=== PATIENT | female | born 1940 | race African-American/Black ===

== ENCOUNTER 2016-06-06 20:26 | Inpatient (IN) | payer OTHER ==
[2016-06-06] MEDS ORDERED: SODIUM CHLORIDE 1,000 ML IV STA (21:36)
[2016-06-06] MEDS ORDERED: PANTOPRAZOLE SODIUM 40 MG in SODIUM CHLORIDE 100 ML IVPB ONE (21:36)
--- NOTE | 2016-06-06 21:36 | PDOC ---
History of Present Illness <Angelica Scott Ginette - Last Filed: 06/07/16 00:34> - History of Present Illness Initial Comments: 06/06/16 23:20 The patient is a 75 year old female, with a significant past medical history of hypertension, who presents to the emergency department with bright red blood per rectum and dark stools 3x since 5PM this evening. The patient denies any associated abdominal pain. The patient reports 3 episodes of dark stools this evening with bright red blood found in the toilet. She denies chest pain, shortness of breath, headache and dizziness. She denies fever, chills, nausea, vomit, diarrhea and constipation. She denies dysuria, frequency, urgency and hematuria. Allergies: Penicillins PCP - Dr. Dom Rodriguez <Roslyn Maher - Last Filed: 06/07/16 00:52> - General Chief Complaint: Rectal Bleed Stated Complaint: RECTAL BLEEDING Time Seen by Provider: 06/06/16 21:30 Past History - Past Medical History Anemia: No Asthma: No Cancer: No HTN: Yes - Surgical History Abdominal Surgery: No Appendectomy: No - Psycho/Social/Smoking Cessation Hx Anxiety: No Suicidal Ideation: No Smoking Status: No Smoking History: Never smoked Number of Cigarettes Smoked Daily: 0 Hx Alcohol Use: No Drug/Substance Use Hx: No Substance Use Type: None <Constantino Scottarturo Peng - Last Filed: 06/07/16 00:34> <Roslyn Maher - Last Filed: 06/07/16 00:52> - Past Medical History Allergies/Adverse Reactions: Allergies Allergy/AdvReac Type Severity Reaction Status Date / Time Penicillins Allergy Verified 06/06/16 20:33 Home Medications: Ambulatory Orders Amlodipine Besylate [Norvasc -] 10 mg PO DAILY 03/22/16 Aspirin [ASA -] 81 mg PO DAILY 03/22/16 Atenolol [Tenormin -] 50 mg PO BID 03/22/16 Donepezil HCl [Aricept -] 10 mg PO DAILY 03/22/16 Escitalopram Oxalate [Lexapro -] 5 mg PO DAILY 03/22/16 Vitamin E 400 unit PO DAILY 03/22/16 Review of Systems - Review of Systems Able to Perform ROS?: Yes Comments:: 06/06/16 23:19 CONSTITUTIONAL: Absent: fever, chills, diaphoresis, generalized weakness, malaise, loss of appetite HEENT: Absent: rhinorrhea, nasal congestion, throat pain, throat swelling, difficulty swallowing, mouth swelling, ear pain, eye pain, visual Changes CARDIOVASCULAR: Absent: chest pain, syncope, palpitations, irregular heart rate, lightheadedness , peripheral edema RESPIRATORY: Absent: cough, shortness of breath, dyspnea with exertion, orthopnea, wheezing, stridor, hemoptysis GASTROINTESTINAL: (+) hematochezia. Absent: abdominal pain, abdominal distension, nausea, vomiting , diarrhea, constipation, melena, GENITOURINARY: Absent: dysuria, frequency, urgency, hesitancy, hematuria, flank pain, genital pain MUSCULOSKELETAL: Absent: myalgia, arthralgia, joint swelling SKIN: Absent: rash, itching, pallor HEMATOLOGIC/IMMUNOLOGIC: Absent: easy bleeding, easy bruising, lymphadenopathy, frequent infections ENDOCRINE: Absent: unexplained weight gain, unexplained weight loss, heat intolerance, cold intolerance NEUROLOGIC: Absent: headache, focal weakness or paresthesias, dizziness, unsteady gait, seizure, mental status changes, bladder or bowel incontinence PSYCHIATRIC: Absent: anxiety, depression, suicidal or homicidal ideation, hallucinations. <Roslyn Maher - Last Filed: 06/07/16 00:52> *Physical Exam - Vital Signs Last Vital Signs Temp Pulse Resp BP Pulse Ox 98.3 F 76 18 158/92 98 06/06/16 20:33 06/06/16 20:33 06/06/16 20:33 06/06/16 20:33 06/06/16 20:33 <Angelica Scott - Last Filed: 06/07/16 00:34> - Vital Signs Last Vital Signs Temp Pulse Resp BP Pulse Ox 98.3 F 76 18 158/92 98 06/06/16 20:33 06/06/16 20:33 06/06/16 20:33 06/06/16 20:33 06/06/16 20:33 - Physical Exam Comments: 06/06/16 23:20 GENERAL: Well developed, well nourished. Awake and alert. No acute distress. HEENT: Normocephalic, atraumatic. PERRLA, EOMI. No conjunctival pallor. Sclera are non- icteric. Moist mucous membranes. Oropharynx is clear. NECK: Supple. Full ROM. No JVD. Carotid pulses 2+ and symmetric, without bruits. No thyromegaly. No lymphadenopathy. CARDIOVASCULAR: Regular rate and rhythm. No murmurs, rubs, or gallops. Distal pulses are 2+ and symmetric. PULMONARY: No evidence of respiratory distress. Lungs clear to auscultation bilaterally. No wheezing, rales or rhonchi. ABDOMINAL: Soft. Non-tender. Non-distended. No rebound or guarding. No organomegaly. Normoactive bowel sounds. MUSCULOSKELETAL Normal range of motion at all joints. No bony deformities or tenderness. No CVA tenderness. EXTREMITIES: No cyanosis. No clubbing. No edema. No calf tenderness. SKIN: Warm and dry. Normal capillary refill. No rashes. No jaundice. NEUROLOGICAL: Alert, awake, appropriate. Cranial nerves 2-12 intact. Normoreflexic in the upper and lower extremities. Normal speech. Toes are down-going bilaterally. Gait is normal without ataxia. PSYCHIATRIC: Cooperative. Good eye contact. Appropriate mood and affect. RECTAL: (+) Dark, clot-like blood in rectal vault. <Roslyn Maher - Last Filed: 06/07/16 00:52> Heart Score/ECG Review - ECG Intrepretation Comment:: 06/07/16 00:52 ECG was read by Dr. Scott at 00:48 Impression: Sinus rhythm is 63, PAC, T-wave abnormality <Roslyn Maher - Last Filed: 06/07/16 00:52> ED Treatment Course - LABORATORY CBC & Chemistry Diagram: 06/06/16 22:10 06/06/16 22:10 <Angelica Scott - Last Filed: 06/07/16 00:34> - LABORATORY CBC & Chemistry Diagram: 06/06/16 22:10 06/06/16 22:10 - ADDITIONAL ORDERS Additional order review: Laboratory Results 06/06/16 06/06/16 06/06/16 22:10 22:10 22:10 Sodium 144 Potassium 3.9 Chloride 107 Carbon Dioxide 26 Anion Gap 11 BUN 16 D Creatinine 0.8 Creat Clearance w eGFR > 60 Random Glucose 100 D Calcium 8.6 Total Bilirubin 0.3 D AST 15 ALT 18 Alkaline Phosphatase 98 Creatine Kinase 64 Troponin I 0.02 Total Protein 6.6 Albumin 3.3 L Stool Occult Blood Positive 06/06/16 22:10 RBC 4.53 MCV 89.2 MCHC 32.9 RDW 15.6 MPV 8.8 Neutrophils % 59.1 Lymphocytes % 30.0 Monocytes % 8.2 Eosinophils % 1.6 Basophils % 1.1 D - RADIOLOGY Radiograph Interpretation: 06/06/16 23:17 CXR was read by Dr. Deal at 22:42 Impression: No acute pulmonary or cardiac pathology - Medications Given in the ED: ED Medications Discontinued Medications Generic Name Dose Route Start Last Admin Trade Name Freq PRN Reason Stop Dose Admin Pantoprazole Sodium 40 mg/ 100 mls @ 200 mls/hr 06/06/16 21:36 06/06/16 22:48 Sodium Chloride IVPB 06/06/16 22:05 200 mls/hr ONCE ONE Administration Sodium Chloride 1,000 mls @ 1,000 mls/hr 06/06/16 21:36 06/06/16 22:48 Normal Saline - IV 06/06/16 22:35 1,000 mls/hr ASDIR STA Administration <Roslyn Maher - Last Filed: 06/07/16 00:52> Medical Decision Making - Medical Decision Making 06/07/16 00:34 75 yo female brought in by her for rectal bleeding that started today, -benign abd exam,no guarding and no rebound -lungs cta b/l cvs [id number] rectal exam-dark red blood/melena, no hemorrhoids neuro -pt ambulatory and alert but very poor historian -reviewed labs -she is not anemic and no transfusion required -cardiac enzyme is negative cxr no infiltrates -case discussed w Dr Lopez, admit to noncardiac telemetry <Angelica Scott - Last Filed: 06/07/16 00:34> - Medical Decision Making 06/07/16 00:35 Dr. Lopez, [facility] Hospitalist, accepts admission of this patient at this time. <Roslyn Maher - Last Filed: 06/07/16 00:52> *DC/Admit/Observation/Transfer - Discharge Dispostion Admit: Yes <Angelica Scott - Last Filed: 06/07/16 00:34> - Attestations Scribe Attestion: 06/06/16 23:23 Documentation prepared by Roslyn Maher, acting as medical lab assistant for Angelica Scott MD <Roslyn Maher - Last Filed: 06/07/16 00:52> Diagnosis at time of Disposition: Rectal bleeding - Referrals Referrals: Dom Rodriguez MD [Primary Care Provider] -
[2016-06-06] MEDS ORDERED: PANTOPRAZOLE SODIUM 40 MG VIAL ONE (22:37)
[2016-06-06 22:51] LABS: BASOPHIL 1.1 % (0-2.0); EOSINOPHIL 1.6 % (0-4.5); MCH 29.4 pg (25.7-33.7); MCHC 32.9 g/dl (32.0-36.0); MEAN CELL VOLUME 89.2 fl (80-96); MEAN PLT VOLUME 8.8 fl (7.5-11.1); NEUTROPHILS 59.1 % (42.8-82.8); PLATELET COUNT 203 K/MM3 (134-434); RDW 15.6 % (11.6-15.6); WHITE BLOOD COUNT 7.5 K/mm3 (4.0-10.0)
[2016-06-06 23:13] LABS: ALBUMIN 3.3 g/dl (3.4-5.0); ALK PHOS 98 U/L (45-117); ANION GAP 11 (8-16); BILIRUBIN,TOTAL 0.3 mg/dL (0.2-1.0); CALCIUM 8.6 mg/dL (8.5-10.1); CO2 26 mmol/L (21-32); CREATININE 0.8 mg/dL (0.55-1.02); GLUCOSE,RANDOM 100 mg/dL (74-106); SGOT/AST 15 U/L (15-37); SGPT/ALT 18 U/L (12-78); TOT PROT 6.6 g/dl (6.4-8.2)
[2016-06-06 23:15] LABS: TROPONIN I 0.02 ng/ml (0.00-0.05)
[2016-06-06 23:32] LABS: INR 1.04 (0.82-1.09); PROTHROMBIN TIME (PATIENT) 11.4 SEC (9.98-11.88)
--- NOTE | 2016-06-07 00:21 | PN ---
<MikoGonzalo - Last Filed: 06/07/16 04:08> Teaching Attending Note ATTENDING PHYSICIAN STATEMENT I saw and evaluated the patient. I reviewed the resident's note and discussed the case with the resident. I agree with the resident's findings and plan as documented. SUBJECTIVE: The patient is a 75 year old female, with a past medical history of hypertension , dementia, and chronic back pain who presented to the emergency department with bright red blood and dark stools per rectum. Patient stated she had 4 episodes since yesterday evening. The patient denies any associated abdominal pain. Patient stated she has been using Naproxen 3x per day for lower back pain. Questionable dark stools as per ED provider but patient did not endorse. She denies chest pain, shortness of breath, headache and dizziness. She denies fever, chills, nausea, vomit, diarrhea and constipation. She denies dysuria, frequency, urgency and hematuria. OBJECTIVE: Vital Signs: Last Vital Signs Temp Pulse Resp BP Pulse Ox 98.0 F 60 20 144/80 99 06/06/16 23:22 06/06/16 23:22 06/06/16 23:22 06/06/16 23:22 06/06/16 23:22 Physical Exam: GEN: NAD HEENT: NCAT, PERRL CARD: RRR, S1 S2 RESP: CTAB RECTAL: Deferred ABD: NT, BWS x4 Labs: CBCD WBC 7.5 K/mm3 (4.0-10.0) 06/06/16 22:10 RBC 4.53 M/mm3 (3.60-5.2) 06/06/16 22:10 Hgb 13.3 GM/dL (10.7-15.3) 06/06/16 22:10 Hct 40.4 % (32.4-45.2) 06/06/16 22:10 MCV 89.2 fl (80-96) 06/06/16 22:10 MCHC 32.9 g/dl (32.0-36.0) 06/06/16 22:10 RDW 15.6 % (11.6-15.6) 06/06/16 22:10 Plt Count 203 K/MM3 (134-434) D 06/06/16 22:10 MPV 8.8 fl (7.5-11.1) 06/06/16 22:10 CMP Sodium 144 mmol/L (136-145) 06/06/16 22:10 Potassium 3.9 mmol/L (3.5-5.1) 06/06/16 22:10 Chloride 107 mmol/L (98-107) 06/06/16 22:10 Carbon Dioxide 26 mmol/L (21-32) 06/06/16 22:10 Anion Gap 11 (8-16) 06/06/16 22:10 BUN 16 mg/dL (7-18) D 06/06/16 22:10 Creatinine 0.8 mg/dL (0.55-1.02) 06/06/16 22:10 Creat Clearance w eGFR > 60 (>60) 06/06/16 22:10 Calcium 8.6 mg/dL (8.5-10.1) 06/06/16 22:10 Total Bilirubin 0.3 mg/dL (0.2-1.0) D 06/06/16 22:10 AST 15 U/L (15-37) 06/06/16 22:10 ALT 18 U/L (12-78) 06/06/16 22:10 Alkaline Phosphatase 98 U/L (45-117) 06/06/16 22:10 Total Protein 6.6 g/dl (6.4-8.2) 06/06/16 22:10 Albumin 3.3 g/dl (3.4-5.0) L 06/06/16 22:10 Imagin. CXR Impression: No acute cardiopulmonary disease is present Reviewed and interpreted by radiologist Dr. Pierce Deal ASSESSMENT AND PLAN: The patient is a 75 year old female, with a significant past medical history of hypertension who presented with GI bleed. 1. GI Bleed- most likely lower. -NPO -2 large bore IV -Protonix GTT -Coagulates -GI consult -Type and screen -Repeat CBC Q12H -Hold Aspirin 2. HTN -Hold PO medications for now 3. Dementia -Hold PO medications for now 4. Chronic back pain -Hold PO medications for now 5. DVT PPX -SCDs Admit to non-cardiac med tele Documentation prepared by Gonzalo Crouch, acting as medical record librarian for Dr. Ricky Lopez MD. ADDENDUM: Patient became hypotensive in ED will transfer to ICU and order PRBC standing and repeat CBC stat. <Ricky Lopez - Last Filed: 06/07/16 05:26> Teaching Attending Note Name of Resident: Pavan Velez Addendum- pt. stated to Ed provider she was having dark blood per rectum. Also noted taking Naproxyn - C/W protonix gtt. PT. transferred from Tele to ICU Critical Care Total Critical Care Time (in minutes): 35 Critical Care Statement: The care of this patient involved high complexity decision making to prevent further life threatening deterioration of the patient 's condition and/or to evalute & treat vital organ system(s) failure or risk of failure.
[2016-06-07] MEDS ORDERED: DEXTROSE 5%-0.45% SALINE 1,000 ML IV SCH (01:30)
[2016-06-07] MEDS ORDERED: PANTOPRAZOLE SODIUM 80 MG in SODIUM CHLORIDE 100 ML IVPB SCH (01:30)
--- NOTE | 2016-06-07 01:35 | HP ---
Addendum entered and electronically signed by Pavan Velez RES 06/07/16 06: 34: Patient continued to have bloody BM in ED. BP dropped. Vital Signs - 8 hr 06/06/16 06/07/16 06/07/16 23:22 03:47 03:50 Temperature 98.0 F 98.1 F Pulse Rate [ 60 60 60 Left Radial] Respiratory 20 20 Rate Blood Pressure 144/80 93/57 67/47 [Right Arm] O2 Sat by Pulse 99 99 Oximetry (%) 06/07/16 06/07/16 06/07/16 04:00 04:11 05:41 Temperature 97.5 F L Pulse Rate [ 60 60 60 Left Radial] Respiratory 20 Rate Blood Pressure 81/53 100/57 138/78 [Right Arm] O2 Sat by Pulse 97 Oximetry (%) 06/07/16 06:13 Temperature 98.5 F Pulse Rate [ 58 L Left Radial] Respiratory 20 Rate Blood Pressure 111/63 [Right Arm] O2 Sat by Pulse Oximetry (%) CBC WBC 7.0 K/mm3 (4.0-10.0) 06/07/16 04:29 RBC 3.28 M/mm3 (3.60-5.2) L D 06/07/16 04:29 Hgb 9.8 GM/dL (10.7-15.3) L D 06/07/16 04:29 Hct 29.3 % (32.4-45.2) L D 06/07/16 04:29 MCV 89.4 fl (80-96) 06/07/16 04:29 MCHC 33.5 g/dl (32.0-36.0) 06/07/16 04:29 RDW 15.8 % (11.6-15.6) H 06/07/16 04:29 Plt Count 177 K/MM3 (134-434) 06/07/16 04:29 MPV 8.2 fl (7.5-11.1) 06/07/16 04:29 Neutrophils % 59.1 % (42.8-82.8) 06/06/16 22:10 Lymphocytes % 30.0 % (8-40) 06/06/16 22:10 Monocytes % 8.2 % (3.8-10.2) 06/06/16 22:10 Eosinophils % 1.6 % (0-4.5) 06/06/16 22:10 Basophils % 1.1 % (0-2.0) D 06/06/16 22:10 Retic Count 1.28 % (0.5-1.5) 06/06/16 22:10 A/P * STAT CBC showed drop in Hgb 13-->9 * Bolus 1 L NS ; PRBC ordered * Initiated transfusion PRBC * transferred to ICU CC time:35 min Original Note: CHIEF COMPLAINT: Bright Red blood per Rectum PCP:Dr. Dom Rodriguez HISTORY OF PRESENT ILLNESS: 75 yo F with sign PMHX of dementia, HTN and chronic back pain, who presents to the ED with BRBPR and dark stools 6x since 5PM 06/05/16. The patient denies any associated abdominal pain. The patient reports 3 episodes of dark stools this evening with bright red blood found in the toilet. Also complaining of diarrhea. NO recent abx use. She takes daily baby aspirin and naproxen TID for back pain. Last colonoscopy > 10 yrs ago. She denies chest pain, shortness of breath, headache and dizziness. She denies fever, chills, nausea, vomit, and constipation. She denies dysuria, frequency, urgency and hematuria. ER course was notable for: (1)Stool occult blood (+) (2)CBC shows H/H WNL (3)EKG- NSR no st or t wave abnormalities. Recent Travel:Denies PAST MEDICAL HISTORY: HTN, Dementia, and chronic lower back pain. PAST SURGICAL HISTORY: Social History: Smoking: Denies- never smoked Alcohol:rare Drugs: no Family History: she states both parents of old age. NO history of Colon ca. Allergies Penicillins Allergy (Verified 06/06/16 20:33) WEAKNESS HOME MEDICATIONS: Home Medications Medication Instructions Recorded Amlodipine Besylate [Norvasc -] 10 mg PO DAILY 03/22/16 Aspirin [ASA -] 81 mg PO DAILY 03/22/16 Atenolol [Tenormin -] 50 mg PO BID 03/22/16 Donepezil HCl [Aricept -] 10 mg PO DAILY 03/22/16 Escitalopram Oxalate [Lexapro -] 5 mg PO DAILY 03/22/16 Vitamin E 400 unit PO DAILY 03/22/16 REVIEW OF SYSTEMS CONSTITUTIONAL: Absent: fever, chills, diaphoresis, generalized weakness, malaise, loss of appetite, weight change HEENT: Absent: rhinorrhea, nasal congestion, throat pain, throat swelling, difficulty swallowing, mouth swelling, ear pain, eye pain, visual changes CARDIOVASCULAR: Absent: chest pain, syncope, palpitations, irregular heart rate, lightheadedness , peripheral edema RESPIRATORY: Absent: cough, shortness of breath, dyspnea with exertion, orthopnea, wheezing, stridor, hemoptysis GASTROINTESTINAL:(+)diarrhea,melena Absent: abdominal pain, abdominal distension, nausea, vomiting, constipation, , hematochezia GENITOURINARY: Absent: dysuria, frequency, urgency, hesitancy, hematuria, flank pain, genital pain MUSCULOSKELETAL: Absent: myalgia, arthralgia, joint swelling, back pain, neck pain SKIN: Absent: rash, itching, pallor HEMATOLOGIC/IMMUNOLOGIC: Absent: easy bleeding, easy bruising, lymphadenopathy, frequent infections ENDOCRINE: Absent: unexplained weight gain, unexplained weight loss, heat intolerance, cold intolerance NEUROLOGIC: Absent: headache, focal weakness or paresthesias, dizziness, unsteady gait, seizure, mental status changes, bladder or bowel incontinence PSYCHIATRIC: Absent: anxiety, depression, suicidal or homicidal ideation, hallucinations. PHYSICAL EXAMINATION Vital Signs - 24 hr 06/06/16 06/06/16 20:33 23:22 Temperature 98.3 F 98.0 F Pulse Rate 76 Pulse Rate [ 60 Left Radial] Respiratory 18 20 Rate Blood Pressure 158/92 Blood Pressure 144/80 [Right Arm] O2 Sat by Pulse 98 99 Oximetry (%) GENERAL: Awake, alert, and fully oriented, in no acute distress. HEAD: Normal with no signs of trauma. EYES: Pupils equal, round and reactive to light, extraocular movements intact, sclera anicteric, conjunctiva clear. EARS, NOSE, THROAT: Ears normal, nares patent, oropharynx clear without exudates. Moist mucous membranes. NECK: Normal range of motion, supple without lymphadenopathy, JVD, or masses. LUNGS: Breath sounds equal, clear to auscultation bilaterally. No wheezes, and no crackles. No accessory muscle use. HEART: Regular rate and rhythm, normal S1 and S2 without murmur, rub or gallop. ABDOMEN: Soft, LLQ tenderness, not distended, normoactive bowel sounds, no guarding, no rebound, no masses. No hepatomegaly or splenomegaly. MUSCULOSKELETAL: Normal range of motion at all joints. No bony deformities or tenderness. No CVA tenderness. UPPER EXTREMITIES: 2+ pulses, warm, well-perfused. No cyanosis. No clubbing. No peripheral edema. LOWER EXTREMITIES: 2+ pulses, warm, well-perfused. No calf tenderness. No peripheral edema. NEUROLOGICAL: Cranial nerves II-XII intact. Normal speech. gait not observed PSYCHIATRIC: Cooperative. Good eye contact. Anxious SKIN: Warm, dry, normal turgor, no rashes or lesions noted. Laboratory Results - last 24 hr 06/06/16 06/06/16 06/06/16 22:10 22:10 22:10 WBC 7.5 RBC 4.53 Hgb 13.3 Hct 40.4 MCV 89.2 MCHC 32.9 RDW 15.6 Plt Count 203 D MPV 8.8 Neutrophils % 59.1 Lymphocytes % 30.0 Monocytes % 8.2 Eosinophils % 1.6 Basophils % 1.1 D Retic Count 1.28 INR Sodium Potassium Chloride Carbon Dioxide Anion Gap BUN Creatinine Creat Clearance w eGFR Random Glucose Calcium Total Bilirubin AST ALT Alkaline Phosphatase Creatine Kinase 64 Troponin I 0.02 Total Protein Albumin Stool Occult Blood Positive Blood Type Antibody Screen 06/06/16 06/06/16 06/06/16 22:10 22:10 22:10 WBC RBC Hgb Hct MCV MCHC RDW Plt Count MPV Neutrophils % Lymphocytes % Monocytes % Eosinophils % Basophils % Retic Count INR 1.04 Sodium 144 Potassium 3.9 Chloride 107 Carbon Dioxide 26 Anion Gap 11 BUN 16 D Creatinine 0.8 Creat Clearance w eGFR > 60 Random Glucose 100 D Calcium 8.6 Total Bilirubin 0.3 D AST 15 ALT 18 Alkaline Phosphatase 98 Creatine Kinase Troponin I Total Protein 6.6 Albumin 3.3 L Stool Occult Blood Blood Type O POSITIVE Antibody Screen Negative ASSESSMENT/PLAN: 75 yo F with sign PMHX of dementia, HTN and chronic back pain admitted to med/ tele for GI bleed. Problem List - Problem (1) Rectal bleeding Assessment/Plan: * GI consult- Dr. Ann * NPO * Protonix drip * repeat H/H Q8 hrs. * type and screen * coags ordered. (2) HTN (hypertension) Assessment/Plan: * Continue: * Amlodipine Besylate (Norvasc -) 10 mg PO DAILY * Atenolol (Tenormin -) 50 mg PO BID (3) Dementia Assessment/Plan: * Donepezil HCl (Aricept -) 10 mg PO DAILY (4) Spinal stenosis Assessment/Plan: * ALL NSAIDs held for possible GI bleed. (5) DVT prophylaxis Assessment/Plan: * SCD's bilat. Visit type - Emergency Visit Emergency Visit: Yes ED Registration Date: 06/07/16 Care time: The patient presented to the Emergency Department on the above date and was hospitalized for further evaluation of their emergent condition. - New Patient This patient is new to me today: Yes Date on this admission: 06/07/16 - Critical Care Critical Care patient: No
[2016-06-07] MEDS ORDERED: PANTOPRAZOLE SODIUM 40 MG VIAL ONE (01:56)
[2016-06-07] MEDS ORDERED: SODIUM CHLORIDE 1,000 ML IV STA (03:56)
[2016-06-07] MEDS ORDERED: SODIUM CHLORIDE 1,000 ML IV SCH (04:15)
[2016-06-07 04:56] LABS: MCHC 33.5 g/dl (32.0-36.0); MEAN CELL VOLUME 89.4 fl (80-96); MEAN PLT VOLUME 8.2 fl (7.5-11.1); PLATELET COUNT 177 K/MM3 (134-434); RDW 15.8 % (11.6-15.6)
[2016-06-07] MEDS: SODIUM CHLORIDE 1,000 ML IV SCH ×2 (05:44→12:57)
[2016-06-07 07:40] VITALS: BMI 28.9
[2016-06-07] MEDS ORDERED: INFLUENZA VACCINE 45 MCG/0.5 ML (MDV 16-17) IM ONE (07:42)
--- NOTE | 2016-06-07 08:50 | MSN ---
Admitting History and Physical - Primary Care Physician PCP: Michael - Admission Chief Complaint: Bloody stool History of Present Illness: 75 yo female with pmhx fof dementia, HTN, chronic back pain, GI bleed, graves disease presents with the dark stools 4x since yesterday. The patient states she was not in pain and noticed that are stool was dark after going to the bathroom. She says that the stools have been loose. She says this has happened before. The daughter states that five years ago she had diverticulitis that caused the bleed and that she needed to get two units of blood. She says she takes aspirin and naproxen once a day. The last colonoscopy was about 10 years ago and that she has a doctor that she follows for this. She denies headache, dizziness, lightheadedness, back pain, chest pain, SOB. She says she has abdominal pain. History Source: Patient, Family Member Limitations to Obtaining History: Dementia - Past Medical History [employer]ASSROOM INSTRUCTIONAL AIDE: Yes: CVA, Dementia Cardiovascular: Yes: HTN, Hyperlipdemia Gastrointestinal: Yes: Diverticulitis, GI Bleed ...: No Musculoskeletal: Yes: Chronic low back pain Endocrine: Yes: Hyperthyroidism (Graves) - Past Surgical History Additional Past Surgical History: RAIU - Smoking History Smoking history: Never smoked Aproximately how many cigarettes per day: 0 - Alcohol/Substance Use Hx Alcohol Use: No Home Medications - Allergies Allergies/Adverse Reactions: Allergies Allergy/AdvReac Type Severity Reaction Status Date / Time Penicillins Allergy Verified 06/06/16 20:33 - Home Medications Home Medications: Ambulatory Orders Amlodipine Besylate [Norvasc -] 10 mg PO DAILY 03/22/16 Aspirin [ASA -] 81 mg PO DAILY 03/22/16 Atenolol [Tenormin -] 50 mg PO BID 03/22/16 Donepezil HCl [Aricept -] 10 mg PO DAILY 03/22/16 Escitalopram Oxalate [Lexapro -] 5 mg PO DAILY 03/22/16 Vitamin E 400 unit PO DAILY 03/22/16 Review of Systems - Review of Systems Constitutional: reports: No Symptoms Cardiovascular: reports: No Symptoms Respiratory: reports: No Symptoms Gastrointestinal: reports: Abdominal Pain (RUQ and LLQ), Melena, Rectal Bleeding , Other (hematochezia) Neurological: reports: No Symptoms Psychiatric: reports: No Symptoms Physical Examination Vital Signs: Vital Signs Temperature 97.2 F L 06/07/16 07:30 Pulse Rate 66 06/07/16 08:27 Respiratory Rate 20 06/07/16 08:27 Blood Pressure 117/62 06/07/16 08:27 O2 Sat by Pulse Oximetry (%) 97 06/07/16 05:41 Constitutional: Yes: Well Nourished, No Distress, Calm Eyes: Yes: WNL, Conjunctiva Clear, EOM Intact Cardiovascular: Yes: WNL, Regular Rate and Rhythm, S1, S2 Respiratory: Yes: WNL, Regular, CTA Bilaterally Gastrointestinal: Yes: Normal Bowel Sounds, Soft, Tenderness (RUQ and LLQ) Edema: No Neurological: Yes: Alert Psychiatric: Yes: Alert Labs: CBC, BMP 06/07/16 04:29 Imaging - Results Chest X-ray: Report Reviewed (No acute pathology), Image Reviewed EKG: Report Reviewed (normal sinus, PAC and t-wave abnoramlity that is unchanged since prior EKG) Assessment/Plan 75 yo female with pmhx of dementia, HTN, GI bleed, diverticulitis, graves, cva and chronic back pain presents with GI bleed admitted to ICU once H&H dropped. GI bleed -GI consult-EGD showing gastritis and colonoscopy discussed with patient-follow up on scheduled time -NPO -Protonix drip -repeat CBC this PM. H&H improved to normal limits -type and screen -coags ordered. -Hold NSAIDs and ASA HTN -Continue home meds of Amlodipine and Atenolol Dementia -Donepezil HCl Hypothyroidism -Not on medication currently -TSH and T4 normal Hyperlipidemia -on a statin but not sure of medication and the dose DVT Prophylaxis -SCD's b/l
[2016-06-07] MEDS ORDERED: PNEUMOC 13-VAL CONJ-DIP CRM/PF 0.5 ML DISP.SYRIN IM ONE (10:00)
[2016-06-07] MEDS ORDERED: ESCITALOPRAM OXALATE 10 MG TABLET (FP) PO SCH (10:00)
[2016-06-07] MEDS ORDERED: amLODIPine BESYLATE 10 MG TABLET (FP) PO SCH (10:00)
[2016-06-07] MEDS ORDERED: ATENOLOL 50 MG TABLET (FP) PO SCH (10:00)
[2016-06-07] MEDS ORDERED: VITAMIN E 400 INTERNATIONAL-UNITS CAPSULE (FP) PO SCH (10:00)
[2016-06-07] MEDS ORDERED: DONEPEZIL HCL 10 MG TABLET (FP) PO SCH (10:00)
[2016-06-07 10:01] LABS: MCH 29.2 pg (25.7-33.7); MCHC 33.2 g/dl (32.0-36.0); MEAN PLT VOLUME 7.7 fl (7.5-11.1); PLATELET COUNT 170 K/MM3 (134-434); RDW 15.9 % (11.6-15.6); WHITE BLOOD COUNT 10.3 K/mm3 (4.0-10.0)
[2016-06-07 10:14] LABS: INR 1.15 (0.82-1.09); PROTHROMBIN TIME (PATIENT) 12.7 SEC (9.98-11.88)
[2016-06-07] MEDS: PANTOPRAZOLE SODIUM 80 MG in SODIUM CHLORIDE 100 ML IVPB SCH ×2 (10:24→12:56)
[2016-06-07 10:48] LABS: ALBUMIN 2.7 g/dl (3.4-5.0); ALK PHOS 83 U/L (45-117); ANION GAP 8 (8-16); CALCIUM 7.9 mg/dL (8.5-10.1); CO2 26 mmol/L (21-32); CREATININE 0.7 mg/dL (0.55-1.02); FREE T4 1.05 ng/dl (0.76-1.46); GLUCOSE,RANDOM 96 mg/dL (74-106); SGOT/AST 11 U/L (15-37); SGPT/ALT 15 U/L (12-78); THYROID STIMULATING HORMONE 2.06 uIU/ml (0.358-3.74); TOT PROT 5.4 g/dl (6.4-8.2)
--- NOTE | 2016-06-07 12:16 | CON.GI ---
Consult Consult Specialty:: GI Referred by:: Hospitalist service Reason for Consultation:: Rectal bleed - History of Present Illness Chief Complaint: "I was having rectal bleeding" History of Present Illness: 75F admitted through [facility] ER for evaluation of rectal bleeding. There are varying descriptions of the blood in the chart, per the patient and per her hisband. She described some dark bowel movements, some bright red, some maroon. There were clots passed. Her initial Hgb was 13, down to 9.8 last night. She was transfused 1 U PRBC and Hgb was up to 11.9. She takes ASA 81mg once dailyand has been taking ALeve TID for a prolonged period of time for treatment of hip pain. She was hypotensive last night, not tachycardic however she is beta blocked. There is no family history of colorectal cancer. She and her does not recall her ever having an EGD or colonoscopy. - History Source History Provided By: Patient, Family Member, Medical Record Limitations to Obtaining History: No Limitations - Past Medical History PRODUCTION ANALYST: Yes: CVA, Dementia Cardio/Vascular: Yes: HTN, Hyperlipdemia Gastrointestinal: Yes: Diverticulitis, Diverticulosis, GI Bleed ...: No Musculoskeletal: Yes: Chronic low back pain Endocrine: Yes: Hyperthyroidism (Graves) - Past Surgical History Past Surgical History: Yes: Hysterectomy - Alcohol/Substance Use Hx Alcohol Use: Yes (occasional) History of Substance Use: reports: None - Smoking History Smoking history: Never smoked Aproximately how many cigarettes per day: 0 - Social History Usual Living Arrangement: With Spouse ADL: Independent Occupation: Retired RN Place of : Other ([facility]) History of Recent Travel: No Home Medications - Allergies Allergies/Adverse Reactions: Allergies Allergy/AdvReac Type Severity Reaction Status Date / Time Penicillins Allergy Verified 06/06/16 20:33 - Home Medications Home Medications: Ambulatory Orders Amlodipine Besylate [Norvasc -] 10 mg PO DAILY 03/22/16 Aspirin [ASA -] 81 mg PO DAILY 03/22/16 Atenolol [Tenormin -] 50 mg PO BID 03/22/16 Donepezil HCl [Aricept -] 10 mg PO DAILY 03/22/16 Escitalopram Oxalate [Lexapro -] 5 mg PO DAILY 03/22/16 Vitamin E 400 unit PO DAILY 12/06/16 Family Disease History - Family Disease History Family Disease History: Other: Father (: 70's unclear causes), Mother ( 80: unclear causes ), Brother (6 siblings: healthy), Daughter (x 2 healthy) Other Family History: No family history of colroectal cancer Review of Systems - Review of Systems Constitutional: denies: Chills Cardiovascular: denies: Chest Pain Respiratory: denies: SOB Gastrointestinal: reports: Melena, Rectal Bleeding. denies: Abdominal Pain, Constipation, Nausea, Vomiting, Vomiting Blood Physical Exam-GI Vital Signs: Vital Signs Temperature 97.2 F L 06/07/16 07:30 Pulse Rate 62 06/07/16 11:00 Respiratory Rate 18 06/07/16 11:00 Blood Pressure 123/64 06/07/16 11:00 O2 Sat by Pulse Oximetry (%) 97 06/07/16 05:41 Constitutional: Yes: Calm Eyes: No: Sclera Icterus Cardiovascular: Yes: Regular Rate and Rhythm. No: Murmur Respiratory: Yes: CTA Bilaterally Gastrointestinal Inspection: No: Distention ...Auscultate: Yes: Normoactive Bowel Sounds ...Palpate: No: Hepatomegaly, Splenomegaly, Tenderness ...Rectal Exam: Yes: Other (no masses, + dark blood mixed with dark stool) Edema: No Neurological: Yes: Alert Labs: CBC, BMP 06/07/16 09:45 06/07/16 09:45 INR, PTT INR 1.15 (0.82-1.09) H 06/07/16 09:45 Problem List - Problems (1) Rectal bleeding Assessment/Plan: Suspect LGIB source given normal BUN. with history of diverticulosis in past and given her age, diverticular source would be highest in differential precipated by NSAID use. Given the varying description of the color of the bleeding, however, I did discuss upper endoscopy with the patient and her to exclude Upper GI source. Discussed potential risks of the procedure like but not limited to bleeding, perforation, infection, sedation medication effects all of which could be potentially life threatening. they have agreed to the procedure. Also discussed follow-up colonoscopy to assess for alternate lower GI source especially with her never having had one in the past. For now: Continue ICU monitoring Avoid over transfusion PPI for now NPO Other recommendations pending the above Code(s): K62.5 - HEMORRHAGE OF ANUS AND RECTUM
--- NOTE | 2016-06-07 12:30 | HOSP ---
Subjective - Review of Symptoms Subjective: ot was seen and evaluated at 0900 this morning pt is resting comfortable. states she has some abdominal pain but is overall improved. she states shes was having multiple episodes of dark stools with some mixed BRBPR. had similar episode 10 years ago and had colonocopy 10 years ago and was told she had diverticulosis but never followed up with GI doctor. she has been taking naproxen daily for several weeks for chronic back pain. states no other new medications. no repeated episodes of melena. denies any recent weight loss or family hx of colon cancer Last Vital Signs Temp Pulse Resp BP Pulse Ox 97.2 F L 62 18 140/67 97 06/07/16 07:30 06/07/16 12:19 06/07/16 12:19 06/07/16 12:19 06/07/16 05:41 General NAD CV S1 S2 RRR no murmur/rub/gallop Lungs CTA B/L no wheezing/rales/rhonchi Abdomen RLQ tenderness and suprapubic tenderness no rebound or guarding. normoactive BS Extremities trace pitting edema A/P 75yo F with PMH Graves disease, HTn and dementia presented to the ER and was admitted for their emergent condition 1. Acute GI bleed- high likelihood with lower GI bleed however can not exclude possiblity of upper GI bleed given recent NSAID use. pt is poor historian. s/p 2 unit PRBC. cont to trend H/H. GI eval will likely require colonoscopy +/- EGD. cont NPO and PPI ggt for now. hold NSAIDS and asa 2. HTN- currently normotensive. hold oral hypotensives for now 3. Graves disease- according to daughter she is supposed to be on synthroid but according to pt she has not taken in years. check TSH/T4 4. Dementia- at baseline per family. will re-start aricept once diet advanced 5. DVT ppx- SCD The care of this patient involved high complexity decision making to prevent further life threatening deterioration of the patient's condition and/or to evaluate & treat vital organ system(s) failure or risk of failure. critical care time 45 minutes Physical Examination Vital Signs: Vital Signs Temperature 97.2 F L 06/07/16 07:30 Pulse Rate 62 06/07/16 12:19 Respiratory Rate 18 06/07/16 12:19 Blood Pressure 140/67 06/07/16 12:19 O2 Sat by Pulse Oximetry (%) 97 06/07/16 05:41 Labs: CBC, BMP 06/07/16 09:45 06/07/16 09:45
--- NOTE | 2016-06-07 12:39 | PN ---
Teaching Attending Note Name of Resident: Jean-Paul Young ATTENDING PHYSICIAN STATEMENT I saw and evaluated the patient. I reviewed the resident's note and discussed the case with the resident. I agree with the resident's findings and plan as documented. SUBJECTIVE: 75 F, hypertension, (?) dementia, and chronic low back pain. Apparently has been taking Naprosyn 3 x day. Patient reports no abdominal pain, but painless lower bleeding. Questionable dark stools as per ED provider but patient did not endorse. Currently in the ICU receiving pRBCs. OBJECTIVE: Intake & Output 06/04/16 06/05/16 06/06/16 06/07/16 23:59 23:59 23:59 23:59 Output Total 300 Balance -300 Weight 160 lb 168 lb 6.931 oz Last Vital Signs Temp Pulse Resp BP Pulse Ox 97.2 F L 62 18 140/67 97 06/07/16 07:30 06/07/16 12:19 06/07/16 12:19 06/07/16 12:19 06/07/16 05:41 Active Medications Sodium Chloride (Normal Saline -) 1,000 mls @ 75 mls/hr IV ASDIR PIETRO Last Admin: 06/07/16 05:44 Dose: 75 mls/hr Pantoprazole Sodium 80 mg/ (Sodium Chloride) 100 mls @ 10 mls/hr IVPB Q10H PIETRO PRN Reason: 8 MG/HR Last Admin: 06/07/16 10:24 Dose: 10 mls/hr Constitutional: Yes: Well Nourished, No Distress, Calm Eyes: Yes: WNL, Conjunctiva Clear, EOM Intact Cardiovascular: Yes: WNL, Regular Rate and Rhythm, S1, S2 Respiratory: Yes: WNL, Regular, CTA Bilaterally Gastrointestinal: Yes: Normal Bowel Sounds, Soft, Tenderness (LLQ) Edema: No Neurological: Yes: Alert Psychiatric: Yes: Alert Labs: Laboratory Results - last 24 hr 06/06/16 06/06/16 06/06/16 22:10 22:10 22:10 WBC 7.5 RBC 4.53 Hgb 13.3 Hct 40.4 MCV 89.2 MCHC 32.9 RDW 15.6 Plt Count 203 D MPV 8.8 Neutrophils % 59.1 Lymphocytes % 30.0 Monocytes % 8.2 Eosinophils % 1.6 Basophils % 1.1 D Retic Count 1.28 INR Sodium Potassium Chloride Carbon Dioxide Anion Gap BUN Creatinine Creat Clearance w eGFR Random Glucose Calcium Total Bilirubin AST ALT Alkaline Phosphatase Creatine Kinase 64 Troponin I 0.02 Total Protein Albumin TSH Free T4 Stool Occult Blood Positive Blood Type Antibody Screen Crossmatch 06/06/16 06/06/16 06/06/16 22:10 22:10 22:10 WBC RBC Hgb Hct MCV MCHC RDW Plt Count MPV Neutrophils % Lymphocytes % Monocytes % Eosinophils % Basophils % Retic Count INR 1.04 Sodium 144 Potassium 3.9 Chloride 107 Carbon Dioxide 26 Anion Gap 11 BUN 16 D Creatinine 0.8 Creat Clearance w eGFR > 60 Random Glucose 100 D Calcium 8.6 Total Bilirubin 0.3 D AST 15 ALT 18 Alkaline Phosphatase 98 Creatine Kinase Troponin I Total Protein 6.6 Albumin 3.3 L TSH Free T4 Stool Occult Blood Blood Type O POSITIVE Antibody Screen Negative Crossmatch See Detail 06/07/16 06/07/16 06/07/16 04:29 09:45 09:45 WBC 7.0 RBC 3.28 L D Hgb 9.8 L D Hct 29.3 L D MCV 89.4 MCHC 33.5 RDW 15.8 H Plt Count 177 MPV 8.2 Neutrophils % Lymphocytes % Monocytes % Eosinophils % Basophils % Retic Count INR 1.15 H Sodium 147 H Potassium 3.9 Chloride 113 H Carbon Dioxide 26 Anion Gap 8 BUN 10 D Creatinine 0.7 Creat Clearance w eGFR > 60 Random Glucose 96 Calcium 7.9 L Total Bilirubin 1.0 D AST 11 L D ALT 15 Alkaline Phosphatase 83 Creatine Kinase Troponin I Total Protein 5.4 L Albumin 2.7 L TSH 2.06 Free T4 1.05 Stool Occult Blood Blood Type Antibody Screen Crossmatch 06/07/16 06/07/16 09:45 09:45 WBC 10.3 H D RBC 4.09 D Hgb 11.9 D Hct 36.0 D MCV 88.0 MCHC 33.2 RDW 15.9 H Plt Count 170 MPV 7.7 Neutrophils % Lymphocytes % Monocytes % Eosinophils % Basophils % Retic Count INR Sodium Potassium Chloride Carbon Dioxide Anion Gap BUN Creatinine Creat Clearance w eGFR Random Glucose Calcium Total Bilirubin AST ALT Alkaline Phosphatase Creatine Kinase Troponin I Total Protein Albumin TSH Cancelled Free T4 Cancelled Stool Occult Blood Blood Type Antibody Screen Crossmatch ASSESSMENT AND PLAN: (1) Rectal bleeding Assessment/Plan: Code(s): K62.5 - HEMORRHAGE OF ANUS AND RECTUM IMP: R/O PUD Diverticulosis (?) Dementia Chronic NSAID use PLAN: Normal transfusion threshold PPI O2 as needed GI evaluation ongoing -> for Endoscopy Dr Handley CCTime 35"
--- NOTE | 2016-06-07 13:54 | PN ---
Physical Exam: SUBJECTIVE: Patient seen and examined at bedside in ICU. She reported having dark/pink/ brown stool per rectum for 2 days but no active abd pain unless being palpated. Denies fever, chills, abd pain, rectal pain, dark urine, n/v. OBJECTIVE: Vital Signs Period Temp Pulse Resp BP Sys/Blanchard Pulse Ox Last 24 Hr 97.2 F-98.5 F 58-66 13-20 67-158/47-84 97-100 GENERAL: The patient is awake, alert, and fully oriented, in no acute distress. EYES:sclera anicteric, conjunctiva pale ENT: oropharynx clear but pale LUNGS: CTAB, no wheeze, crackles, rhonchi HEART: Regular rate and rhythm, S1, S2 without murmur, rub or gallop. ABDOMEN: Soft, LUQ tenderness, nondistended, normoactive bowel sounds, no guarding, no rebound EXTREMITIES: cold extremities, diminished pedal pulses, no edema. CBCD WBC 10.3 K/mm3 (4.0-10.0) H D 06/07/16 09:45 RBC 4.09 M/mm3 (3.60-5.2) D 06/07/16 09:45 Hgb 11.9 GM/dL (10.7-15.3) D 06/07/16 09:45 Hct 36.0 % (32.4-45.2) D 06/07/16 09:45 MCV 88.0 fl (80-96) 06/07/16 09:45 MCHC 33.2 g/dl (32.0-36.0) 06/07/16 09:45 RDW 15.9 % (11.6-15.6) H 06/07/16 09:45 Plt Count 170 K/MM3 (134-434) 06/07/16 09:45 MPV 7.7 fl (7.5-11.1) 06/07/16 09:45 CMP Sodium 147 mmol/L (136-145) H 06/07/16 09:45 Potassium 3.9 mmol/L (3.5-5.1) 06/07/16 09:45 Chloride 113 mmol/L (98-107) H 06/07/16 09:45 Carbon Dioxide 26 mmol/L (21-32) 06/07/16 09:45 Anion Gap 8 (8-16) 06/07/16 09:45 BUN 10 mg/dL (7-18) D 06/07/16 09:45 Creatinine 0.7 mg/dL (0.55-1.02) 06/07/16 09:45 Creat Clearance w eGFR > 60 (>60) 06/07/16 09:45 Calcium 7.9 mg/dL (8.5-10.1) L 06/07/16 09:45 Total Bilirubin 1.0 mg/dL (0.2-1.0) D 06/07/16 09:45 AST 11 U/L (15-37) L D 06/07/16 09:45 ALT 15 U/L (12-78) 06/07/16 09:45 Alkaline Phosphatase 83 U/L (45-117) 06/07/16 09:45 Total Protein 5.4 g/dl (6.4-8.2) L 06/07/16 09:45 Albumin 2.7 g/dl (3.4-5.0) L 06/07/16 09:45 Active Medications Generic Name Dose Route Start Last Admin Trade Name Freq PRN Reason Stop Dose Admin Sodium Chloride 1,000 mls @ 75 mls/hr 06/07/16 05:30 06/07/16 12:57 Normal Saline - IV 75 mls/hr ASDIR PIETRO Administration Pantoprazole Sodium 80 mg/ 100 mls @ 10 mls/hr 06/07/16 11:30 06/07/16 12:56 Sodium Chloride IVPB Not Given Q10H PIETRO 8 MG/HR Stool Occult Blood: positive IMAGING CXR-06/07/2016: no acute pathology ASSESSMENT/PLAN: 75 yo F w/ h/o dementia, HTN, chronic back pain on NSAID and asa admitted to the ICU for suspected lower GI bleed. GI: acute lower GI bleed like 2/2 diverticulosis - s/p 2 PRBC * H/H stable, cont. to monitor - colonoscopy today, endoscopy tomorrow - cont. PPI drip Cardiac: HTN - controlled off medication - hold meds for now Endo: Grave's disease (unconfirmed) - not on medication - f/u TSH and free T4 Neuro: dementia - at baseline FEN - NS@75ml/hr - hypernatremia, cont. hydration - NPO Prophylaxis - DVT: SCD - GI: protonix Disposition - cont. to monitor in ICU Code status - Full code Visit type - Emergency Visit Emergency Visit: No - New Patient This patient is new to me today: Yes Date on this admission: 06/07/16 - Critical Care Critical Care patient: Yes Total Critical Care Time (in minutes): 35 Critical Care Statement: The care of this patient involved high complexity decision making to prevent further life threatening deterioration of the patient 's condition and/or to evalute & treat vital organ system(s) failure or risk of failure.
[2016-06-07] MEDS ORDERED: TETRACAINE/BENZOCAINE/BUTAMBEN 20 GM SPR TP ONE (13:55)
--- NOTE | 2016-06-07 14:20 | PN ---
Progress Note (short form) - Note Progress Note: EGD report in front of physical chart and to be scanned into [employer] Problem List - Problems (1) Rectal bleeding Code(s): K62.5 - HEMORRHAGE OF ANUS AND RECTUM
[2016-06-07] MEDS ORDERED: PEG3350/SOD SULF,BICARB,CL/KCL 4,000 ML SOLN.RECON PO ONE (17:00)
[2016-06-07 17:39] LABS: BASOPHIL 0.4 % (0-2.0); EOSINOPHIL 2.1 % (0-4.5); MCH 29.6 pg (25.7-33.7); MCHC 33.8 g/dl (32.0-36.0); MEAN CELL VOLUME 87.6 fl (80-96); MEAN PLT VOLUME 8.5 fl (7.5-11.1); NEUTROPHILS 65.4 % (42.8-82.8); PLATELET COUNT 188 K/MM3 (134-434); RDW 15.9 % (11.6-15.6); WHITE BLOOD COUNT 9.7 K/mm3 (4.0-10.0)
[2016-06-07 21:01] LABS: MCH 29.5 pg (25.7-33.7); MCHC 33.8 g/dl (32.0-36.0); MEAN CELL VOLUME 87.1 fl (80-96); MEAN PLT VOLUME 8.3 fl (7.5-11.1); PLATELET COUNT 178 K/MM3 (134-434)
--- NOTE | 2016-06-07 21:29 | EKG ---
Test Reason : Blood Pressure : / mmHG Vent. 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
[2016-06-07 22:34] LABS: MCH 29.5 pg (25.7-33.7); MEAN CELL VOLUME 86.9 fl (80-96); MEAN PLT VOLUME 8.3 fl (7.5-11.1); PLATELET COUNT 183 K/MM3 (134-434); RDW 16.3 % (11.6-15.6); WHITE BLOOD COUNT 8.8 K/mm3 (4.0-10.0)
[2016-06-07 23:17] LABS: ALBUMIN 2.8 g/dl (3.4-5.0); ANION GAP 9 (8-16); CALCIUM 8.4 mg/dL (8.5-10.1); CO2 26 mmol/L (21-32); CREATININE 0.6 mg/dL (0.55-1.02); GLUCOSE,RANDOM 91 mg/dL (74-106); MAGNESIUM 1.8 mg/dL (1.8-2.4); PHOSPHOROUS 2.4 mg/dL (2.5-4.9); SGOT/AST 12 U/L (15-37); SGPT/ALT 15 U/L (12-78)
[2016-06-07 23:18] LABS: ALK PHOS 84 U/L (45-117); BILIRUBIN,TOTAL 0.6 mg/dL (0.2-1.0); TOT PROT 5.7 g/dl (6.4-8.2)
[2016-06-08] MEDS ORDERED: POTASSIUM PHOSPHATE 10 MM in DEXTROSE 5%-WATER - 250 ML IVPB ONE (00:45)
[2016-06-08] MEDS: SODIUM CHLORIDE 1,000 ML IV SCH (05:41)
[2016-06-08] MEDS ORDERED: SODIUM CHLORIDE 1,000 ML IV SCH (06:22)
[2016-06-08 06:47] LABS: MCH 29.7 pg (25.7-33.7); MCHC 34.2 g/dl (32.0-36.0); MEAN CELL VOLUME 86.8 fl (80-96); MEAN PLT VOLUME 8.6 fl (7.5-11.1); PLATELET COUNT 194 K/MM3 (134-434); RDW 15.9 % (11.6-15.6); WHITE BLOOD COUNT 10.2 K/mm3 (4.0-10.0)
[2016-06-08 07:11] LABS: ANION GAP 10 (8-16); CALCIUM 8.6 mg/dL (8.5-10.1); CO2 28 mmol/L (21-32); GLUCOSE,RANDOM 99 mg/dL (74-106)
[2016-06-08 07:16] LABS: ALK PHOS 83 U/L (45-117); BILIRUBIN,TOTAL 0.5 mg/dL (0.2-1.0); CREATININE 0.5 mg/dL (0.55-1.02); PHOSPHOROUS 2.9 mg/dL (2.5-4.9); SGOT/AST 13 U/L (15-37); SGPT/ALT 14 U/L (12-78)
--- NOTE | 2016-06-08 08:41 | MSN ---
Progress Note (SOAP) - Subjective Chief Complaint: rectal bleed History of Present Illness: 75 yo female with pmhx of dementia, HTN, GI bleed, diverticulitis, graves, cva and chronic back pain presents with GI bleed since 06/05/16. Yesterday she voided 5x but unsure whether they stools were dark or bloody. Today she denies headache, dizziness, abdominal pain. She says she has back pain in her lumbar radiating to her left buttocks. - Current Medications Current Medications: Active Medications Sodium Chloride (Normal Saline -) 1,000 mls @ 75 mls/hr IV ASDIR PIETRO Last Admin: 06/08/16 06:36 Dose: 75 mls/hr - Objective Vital Signs: Vital Signs Temperature 98.0 F 06/08/16 06:43 Pulse Rate 70 06/08/16 06:43 Respiratory Rate 18 06/08/16 06:43 Blood Pressure 142/75 06/08/16 06:43 O2 Sat by Pulse Oximetry (%) 99 06/07/16 21:00 Constitutional: Yes: Well Nourished, No Distress, Calm Eyes: Yes: Conjunctiva Clear, EOM Intact Cardiovascular: Yes: WNL, Regular Rate and Rhythm, S1, S2 Respiratory: Yes: WNL, Regular, CTA Bilaterally Gastrointestinal: Yes: Soft, Hyperactive Bowel Sounds, Tenderness Musculoskeletal: Yes: Back Pain (tender to palpation and radiating to her left buttock) Peripheral Pulses WNL: Yes Peripheral Pulses: Left Radial: 2+, Right Radial: 2+, Left Doralis Pedis: 2+, Right Dorsalis Pedis: 2+ Edema: No Neurological: Yes: Alert Psychiatric: Yes: Alert Labs Lab Results: CBC, BMP 06/08/16 05:20 06/08/16 05:20 Assessment/Plan 75 yo female with pmhx of dementia, HTN, GI bleed, diverticulitis, graves, cva and chronic back pain presents with GI bleed since 06/05/16 GI bleed -GI consult-EGD showing gastritis and colonoscopy showing resolved diverticular bleed and removal of polyps with advice to follow up in 1 year -resume normal diet -d/c Protonix drip -CBC within normal limits-repeat daily -Hold NSAIDs and ASA Altered mental status -Alert to name and date of -neuro consult-possible metabolic encephalopathy or delirium -resume aricept and lexapro -head ct-no acute pathology Hypokalemia -replete K HTN -restart norvasc at lower dose because slightly above goal and continue to hold BP meds Dementia -resume lexapro and aricept Hypothyroidism -Not on medication currently -TSH and T4 normal Hyperlipidemia -on a statin but not sure of medication and the dose DVT Prophylaxis -SCD's b/l
--- NOTE | 2016-06-08 09:56 | CONSULT ---
Consult Consult Specialty:: General Surgery Referred by:: GI Reason for Consultation:: Rectal bleeding - History of Present Illness Chief Complaint: Rectal bleeding History of Present Illness: This is a 75 year-old female who presented to the emergency department with a 2- day history of black tarry stools. She became hypotensive in the emergency department and was admitted to ICU. She has since been transferred to telemetry. She has had no further hypotensive episodes. The patient has a history of diverticular bleed about 5 years ago. She consumes NSAIDS (aspirin and naproxen) daily. She currently denies abdominal pain. She notes she has had bloody bowel movements today. However, the patient appears very confused. Last colonoscopy about 10 years ago. EGT performed yesterday revealed gastritis. Colonoscopy scheduled for today. H & H stable. - History Source History Provided By: Patient, Medical Record Limitations to Obtaining History: Dementia - Past Medical History FURNITURE RESTORER: Yes: CVA, Dementia Cardio/Vascular: Yes: HTN, Hyperlipdemia Gastrointestinal: Yes: Diverticulitis, GI Bleed ...: No Musculoskeletal: Yes: Chronic low back pain Endocrine: Yes: Hyperthyroidism (Graves) - Past Surgical History Past Surgical History: Yes: Hysterectomy - Alcohol/Substance Use Hx Alcohol Use: No History of Substance Use: reports: None - Smoking History Smoking history: Never smoked Aproximately how many cigarettes per day: 0 - Social History Usual Living Arrangement: With Spouse ADL: Independent Occupation: Retired RN History of Recent Travel: No Home Medications - Allergies Allergies/Adverse Reactions: Allergies Allergy/AdvReac Type Severity Reaction Status Date / Time Penicillins Allergy Verified 06/06/16 20:33 - Home Medications Home Medications: Ambulatory Orders Amlodipine Besylate [Norvasc -] 10 mg PO DAILY 03/22/16 Aspirin [ASA -] 81 mg PO DAILY 03/22/16 Atenolol [Tenormin -] 50 mg PO BID 03/22/16 Donepezil HCl [Aricept -] 10 mg PO DAILY 03/22/16 Escitalopram Oxalate [Lexapro -] 5 mg PO DAILY 03/22/16 Vitamin E 400 unit PO DAILY 03/22/16 Naprosyn - DAILY 06/07/16 Family Disease History - Family Disease History Family Disease History: Other: Father (: 70's unclear causes), Mother ( 80: unclear causes ), Brother (6 siblings: healthy), Daughter (x 2 healthy) Other Family History: No family history of colroectal cancer Review of Systems - Review of Systems Constitutional: denies: Chills, Fever Eyes: denies: Double Vision, Eye Pain HENT: denies: Difficult Swallowing, Ear Pain Neck: denies: Decreased ROM, Pain on Movement Cardiovascular: denies: Chest Pain, Palpitations Respiratory: denies: Cough, Hemoptysis Gastrointestinal: reports: Abdominal Pain, Melena, Rectal Bleeding, Other ( loose stools) Genitourinary: denies: Burning, Discharge Musculoskeletal: denies: Back Pain, Decreased ROM Integumentary: denies: Blister, Change in Color Neurological: reports: Confusion Endocrine: denies: Excessive Sweating, Increased Hunger Psychiatric: denies: Altered Sleep Pattern, Anxiety Physical Exam Vital Signs: Vital Signs Temperature 98.0 F 06/08/16 06:43 Pulse Rate 70 06/08/16 06:43 Respiratory Rate 18 06/08/16 06:43 Blood Pressure 142/75 06/08/16 06:43 O2 Sat by Pulse Oximetry (%) 99 06/07/16 21:00 Constitutional: Yes: No Distress, Anxious Eyes: Yes: Conjunctiva Clear, EOM Intact HENT: Yes: Atraumatic, Normocephalic Neck: Yes: Supple, Trachea Midline Cardiovascular: Yes: Regular Rate and Rhythm Respiratory: Yes: Regular. No: Accessory Muscle Use Gastrointestinal: Yes: Normal Bowel Sounds, Soft. No: Tenderness ...Rectal Exam: Yes: Deferred Musculoskeletal: No: Back Pain, Muscle Pain Neurological: Yes: Alert, Other (Confused and rambling) Psychiatric: Yes: Alert Labs: CBC, BMP 06/08/16 05:20 06/08/16 05:20 Problem List - Problems (1) Rectal bleeding Code(s): K62.5 - HEMORRHAGE OF ANUS AND RECTUM Assessment/Plan ASSESSMENT: Rectal bleeding Confusion Dementia NSAID use PLAN: Follow up colonoscopy Diet as per GI Neurology consultation for confusion Dr. Umana notified Doubt need for acute general surgical intervention Will follow with you
[2016-06-08] MEDS ORDERED: PROPOFOL 20 ML ONE (10:02)
--- NOTE | 2016-06-08 10:19 | PN ---
Progress Note (short form) - Note Progress Note: GI NOte: Informed consent for colonoscopy was obtained from Radha's by telephone after informing him of the potential risks of perforation and hemorrhage that could lead to surgery and/or transfusions. Two staff nurses have witnessed this consent. Will proceed with colonoscopy.
--- NOTE | 2016-06-08 11:19 | PN ---
Physical Exam: SUBJECTIVE: Patient seen and examined at bed side. Sitting comfortably no acute distress. Patient is a poor historian and is more forgetful than yesterday. patient awake and alert more confused, today oriented only to name, RN that pt was have visual hallucinations. Daughter and were at bedside during visit. To them patient has a history of memory loss but she is worse now than her baseline. Patient denied any CP, SOB, nausea, fevers, chills, lightheadedness or dizziness.No slurred speech, no blurred vision or double vision, no facial droop. Endoscopy yesterday, going for colonoscopy today. OBJECTIVE: Vital Signs Period Temp Pulse Resp BP Sys/Blanchard Pulse Ox Last 24 Hr 97.8 F-98.2 F 62-88 17-22 103-163/57-92 97-99 GENERAL: The patient is awake, alert, and oriented to person only, in no acute distress. HEAD: Normal with no signs of trauma. EYES: extraocular movements intact, sclera anicteric, conjunctiva clear. No ptosis. pink conjunctiva ENT: Ears normal, nares patent, oropharynx clear without exudates, moist mucous membranes. NECK: Trachea midline, full range of motion, supple. LUNGS: Breath sounds equal, clear to auscultation bilaterally, no wheezes, no crackles, no accessory muscle use. HEART: Regular rate and rhythm, S1, S2 without murmur, rub or gallop. ABDOMEN: Soft, nontender, nondistended, normoactive bowel sounds, no guarding, no rebound, no hepatosplenomegaly, no masses. EXTREMITIES: 2+ pulses, warm, well-perfused, +1 edema. NEUROLOGICAL: no signs of focal neurological def. Normal speech, gait not observed. PSYCH: Normal mood, normal affect. SKIN: Warm, dry, normal turgor, no rashes or lesions noted Laboratory Results - last 24 hr 06/07/16 06/07/16 06/07/16 16:00 19:30 22:00 WBC 9.7 10.0 8.8 RBC 4.15 4.13 4.20 Hgb 12.3 12.2 12.4 Hct 36.4 35.9 36.5 MCV 87.6 87.1 86.9 MCHC 33.8 33.8 34.0 RDW 15.9 H 16.0 H 16.3 H Plt Count 188 178 183 MPV 8.5 D 8.3 8.3 Neutrophils % 65.4 Lymphocytes % 23.9 D Monocytes % 8.2 Eosinophils % 2.1 Basophils % 0.4 Sodium Potassium Chloride Carbon Dioxide Anion Gap BUN Creatinine Creat Clearance w eGFR Random Glucose Calcium Phosphorus Magnesium Total Bilirubin AST ALT Alkaline Phosphatase Total Protein Albumin 06/07/16 06/08/16 06/08/16 22:00 05:20 05:20 WBC 10.2 H RBC 4.29 Hgb 12.8 Hct 37.3 MCV 86.8 MCHC 34.2 RDW 15.9 H Plt Count 194 MPV 8.6 Neutrophils % Lymphocytes % Monocytes % Eosinophils % Basophils % Sodium 148 H 146 H Potassium 3.5 3.3 L Chloride 113 H 108 H Carbon Dioxide 26 28 Anion Gap 9 10 BUN 6 L D 4 L D Creatinine 0.6 0.5 L Creat Clearance w eGFR > 60 > 60 Random Glucose 91 99 Calcium 8.4 L 8.6 Phosphorus 2.4 L 2.9 D Magnesium 1.8 2.0 Total Bilirubin 0.6 D 0.5 AST 12 L 13 L ALT 15 14 Alkaline Phosphatase 84 83 Total Protein 5.7 L 6.0 L Albumin 2.8 L 3.0 L Active Medications Generic Name Dose Route Start Last Admin Trade Name Freq PRN Reason Stop Dose Admin Sodium Chloride 1,000 mls @ 75 mls/hr 06/08/16 06:22 06/08/16 06:36 Normal Saline - IV 75 mls/hr ASDIR PIETRO Administration ASSESSMENT/PLAN: 5 yo F w/ h/o dementia, HTN, chronic back pain on NSAID and asa admitted to the ICU for suspected lower GI bleed. GI: acute lower GI bleed like 2/2 diverticulosis-- s/p 2 PRBC- HB 12.8 stable today. -not actively bleeding will d/c protonic and no ASA at this time. -H/H cont to monitor -EGD with no bleeding. -colonoscopy done showing diverticulae but no active bleeding. Residual blood found throughtout the colon with universal diverticulosis suggesting a resolved diverticular bleed. -Ceca; and transverse colon polyps removed. - Advised office followup in 1 year and repeat colonoscopy in 3 years. -surgery evaluated but no intervention required at this time. -advance diet per GI attending AMS: Acute encephalopathy v possible delirium- possibly metabolic encephalopathy v medication induced v CVA reported by will correct electrolytes. -neuro consult appreciated - CT head w/o cont to r/o intra-cranial pathology per neurology -RPR -Vit B12 -UA -Monitor and replenish electrolytes imbalance a - hypokalemic possibly secondary to blood products -Potassium repleted- -Normal LFTs - called pharmacy and confirmed medications which included Aricept and Lexapro, restarted. Hypokalemia- Kcl 40meq HTN- slightly above goal. -start norvasc at lower dose.Hold other antihypertensive agents -cont to monitor VS . Cardiac: HTN - controlled off medication - hold meds for now Endo: Grave's disease (unconfirmed) - not on medication - TSH and free T4 WNL Neuro: dementia - at baseline FEN - NS@75ml/hr - hypernatremia, cont. hydration -advance diet Prophylaxis - DVT: SCD Disposition - cont. to monitor in ICU Code status - Full code Visit type - Emergency Visit Emergency Visit: Yes ED Registration Date: 06/07/16 Care time: The patient presented to the Emergency Department on the above date and was hospitalized for further evaluation of their emergent condition. - New Patient This patient is new to me today: No - Critical Care Critical Care patient: No
--- NOTE | 2016-06-08 11:32 | PN ---
Progress Note (short form) - Note Progress Note: GI Procedure NOte: Please see scanned colonoscopy report. Residual blood found throughtout the colon with universal diverticulosis suggesting a resolved diverticular bleed. Ceca; and transverse colon polyps removed. Findings discussed with Veda, her daughter and her . Advised office followup in 1 year and repeat colonoscopy in 3 years. Will advance diet. If tolerated can discharge.
--- NOTE | 2016-06-08 13:03 | PN ---
Teaching Attending Note Name of Resident: Pavel Franco ATTENDING PHYSICIAN STATEMENT I saw and evaluated the patient. I reviewed the resident's note and discussed the case with the resident. I agree with the resident's findings and plan as documented. SUBJECTIVE:pt is currently asymptomatic. denies abdominal pain, N/V/C/D, melena or BRBPR as per RN pt was confused this morning, speaking to people not in the room. did not know where she was or time OBJECTIVE: Last Vital Signs Temp Pulse Resp BP Pulse Ox 97.9 F 97 H 20 133/82 100 06/08/16 14:00 06/08/16 14:00 06/08/16 14:00 06/08/16 14:00 06/08/16 11:42 General NAD A&Ox1 (self) CV S1 S2 RRR no murmur/rub/gallop Lungs CTA B/L no wheezing/rales/rhonchi Abdomen soft NT/ND no rebound or guarding. normoactive BS Extremities trace pitting edema ASSESSMENT AND PLAN: A/P 75yo F with PMH Graves disease, HTn and dementia presented to the ER and was admitted for their emergent condition 1. Acute posthemorrhagic anemia in the setting of GI bleed-s/p 2 units PRBC. Hgb remains stable. EGD with no bleeding. colonoscopy done showing diverticulae but no active bleeding. surgery evaluated but no intervention required at this time. will advance diet. d/c protonix. will hold asa at this time. 2. Acute encephalopathy- reported by RN that pt was have visual hallucinations. as per who is present at bedside pt is at normal baseline. correct electrolytes. neuro consulted. CT head pending 3. Hypokalemia- Kcl 40meq 4. HTN- slightly above goal. start norvasc at lower dose. monitor. hold other antihypertensive agents 5. Graves disease- TSH WNL. TSH monitoring as outpatient. 6. DVT ppx- SCD 7. will monitor overnight. if mental status remains at baseline will d/c home in am
--- NOTE | 2016-06-08 13:24 | CON.NEURO ---
Addendum entered and electronically signed by Tevin Brennan RES 06/08/16 14: 25: MRI and MRA Brain from 11/2015 reviewed MRI Brain w/o Contrast 11/16/2015: Unremarkable MRI of the orbits. Multiple foci of small vessel infarction in the periventricular white matter, there is no acute infarction or hemorrhage. Ectasia of the supraclinoid portion of the right internal carotid which appears to be reaching the right optic nerve. Evaluation with MRA would be helpful to rule out an aneurysm. MRA Brain 12/10/2015: There is no evidence of aneurysm, vascular malformation. Symmetrical ectasia, vascular looping of the supraclinoid internal carotid arteries is noted. Dominant left vertebral artery. Decreased caliber of the distal right vertebral artery in comparison to the contralateral side. At the junction of the both vertebral arteries origin of the basilar artery, narrowing of the origin of basilar artery is noted. Ectatic basilar artery. Original Note: Consult Consult Specialty:: Neurology Reason for Consultation:: Confusion - History of Present Illness Chief Complaint: Confusion History of Present Illness: 75 year old female with pmh of Dementia, HTN, Graves disease admitted for GI bleed. We were consulted on the case for confusion. Pt is awake, alert and follow simple direction. Patient is a poor historian and is very forgetful. Pt was very pleasant and answered questions to the best of her ability. Daughter and were at bedside during visit. To them patient has a history of memory loss but she is worse now than her baseline. Pt complained of increased b/l hand tremors for the past month. Pt denies focal weakness, numbness, tingling. No slurred speech, no blurred vision or double vision, no facial droop.. No dizziness, no nausea or vomiting, no fever or chills. No pain. - History Source History Provided By: Patient, Family Member, Significant Other Limitations to Obtaining History: Dementia - Past Medical History SPEECH WRITER: Yes: CVA, Dementia Cardio/Vascular: Yes: HTN, Hyperlipdemia Gastrointestinal: Yes: Diverticulitis, GI Bleed ...: No Musculoskeletal: Yes: Chronic low back pain Endocrine: Yes: Hyperthyroidism (Graves) - Past Surgical History Past Surgical History: Yes: Hysterectomy - Alcohol/Substance Use Hx Alcohol Use: No History of Substance Use: reports: None - Smoking History Smoking history: Never smoked Aproximately how many cigarettes per day: 0 - Social History Usual Living Arrangement: With Spouse ADL: Independent Occupation: Retired RN History of Recent Travel: No Home Medications - Allergies Allergies/Adverse Reactions: Allergies Allergy/AdvReac Type Severity Reaction Status Date / Time Penicillins Allergy Verified 06/06/16 20:33 - Home Medications Home Medications: Ambulatory Orders Amlodipine Besylate [Norvasc -] 10 mg PO DAILY 03/22/16 Aspirin [ASA -] 81 mg PO DAILY 03/22/16 Atenolol [Tenormin -] 50 mg PO BID 03/22/16 Escitalopram Oxalate [Lexapro -] 20 mg PO DAILY 03/22/16 Vitamin E 400 unit PO DAILY 03/22/16 Naprosyn - DAILY 06/07/16 Memantine HCl/Donepezil HCl [Namzaric 21 mg-10 mg Capsule] 1 DAILY 06/08/16 Family Disease History - Family Disease History Family Disease History: Other: Father (: 70's unclear causes), Mother ( 80: unclear causes ), Brother (6 siblings: healthy), Daughter (x 2 healthy) Other Family History: No family history of colroectal cancer Review of Systems - Review of Systems Constitutional: reports: No Symptoms Eyes: reports: No Symptoms HENT: reports: No Symptoms Neck: reports: No Symptoms Cardiovascular: reports: No Symptoms Respiratory: reports: No Symptoms Genitourinary: reports: No Symptoms Musculoskeletal: reports: No Symptoms Integumentary: reports: No Symptoms Neurological: reports: Tremors, Other (forgetfulness) Psychiatric: reports: No Symptoms Physical Exam-Neuro Vital Signs: Vital Signs Temperature 97.6 F 06/08/16 10:59 Pulse Rate 70 06/08/16 11:42 Respiratory Rate 18 06/08/16 11:42 Blood Pressure 154/86 06/08/16 11:42 O2 Sat by Pulse Oximetry (%) 100 06/08/16 11:42 Constitutional: Yes: Well Nourished, No Distress, Calm Neck: Yes: WNL, Supple Cardiovascular: Yes: Regular Rate and Rhythm, S1, S2 Respiratory: Yes: Regular, CTA Bilaterally Gastrointestinal: Yes: Normal Bowel Sounds, Soft, Abdomen, Obese Musculoskeletal: Yes: WNL Psychiatric: Yes: Alert, Oriented Labs: CBC, BMP 06/08/16 05:20 06/08/16 05:20 INR, PTT INR 1.15 (0.82-1.09) H 06/07/16 09:45 - Neuro Exam Level Of Consciousness: Yes: Alert, Oriented to Person Eyes: Yes: PERRLA Speech: Other (Some level of expressive aphasia and difficulty finding words) Dominant Hand: Right Mini Mental Exam: Orientation 2/10, Immediate recall/registration 3/3, Attention and calculation, 2/5, Recall 0/3, language 5/9. MMSE: 04/15 Cranial Nerves II-XII Intact: Yes Gag: Present DTR's: 2+ Left Bicep, 2+ Right Bicep, 2+ Left Achilles, 2+ Right Achilles Babinski: Present Response to light touch: Normal Response to pain prick: Normal Response to vibration: Normal (diminished vibration in lower ext) Coordination: Normal: Finger to Nose (abnormal ), Precision Finger Tap ( abnormal ), Pronator Drift (normal ) Motor Strength: 4/5: Left Arm, Right Arm, Left Leg, Right Leg Gait: Deferred Assessment/Plan CBC, BMP 06/08/16 05:20 06/08/16 05:20 Laboratory Tests 06/07/16 09:45 TSH 2.06 Free T4 1.05 06/06/16 06/08/16 22:10 05:20 Calcium 8.6 Phosphorus 2.9 D Magnesium 2.0 Total Bilirubin 0.5 AST 13 L ALT 14 Alkaline Phosphatase 83 Troponin I 0.02 Assessment 75 year old female with pmh of dementia, HTN, HPLD admitted for Acute GI bleed now with worsening dementia per family. Always consider a CVA as a possible cause. Could possibly be metabolic encephalopathy with the GI bleed/anemia/General medical condition. Also, the symptoms can be rt not being on Aricept and Lexapro since admission. Impression Metabolic encephalopathy r/o CVA, Medication effect Plan CT head w/o contrast RPR Vit B12 UA Monitor for electrolytes imbalance Pt was hypokalemic Potassium repleted Normal LFTs Consider Restarting Aricept and Lexapro Disposition Thank you for the consulting opportunity. We will continue to follow this patient. Case discussed with Dr Umana, Neurology Attending Physician, final recommendation to follow in her note.
[2016-06-08] MEDS ORDERED: POTASSIUM CHLORIDE 40 MEQ/30 ML UNIT DOSE CUP PO ONE (13:30)
--- NOTE | 2016-06-08 14:08 | CONSULT ---
Consult Consult Specialty:: Neurology Reason for Consultation:: Altered mental status - History of Present Illness History of Present Illness: 75 year old woman with history of dementia on aricept, hypertension, Graves disease admitted due to GI bleed, status post colonoscopy which showed resolved diverticular bleed. Neurology consulted for altered mental status. Patients daughter and at bedside. As per daughter, patient has a history of forgetfulness but is more confused from her baseline. No focal weakness, numbness, tingling. No slurred speech, no blurred vision or double vision, no facial droop. Non focal exam- however patient unable to state month, year or place. Knows name and age. - Past Medical History FINGERNAIL SCULPTOR: Yes: CVA, Dementia Cardio/Vascular: Yes: HTN, Hyperlipdemia Gastrointestinal: Yes: Diverticulitis, GI Bleed ...: No Musculoskeletal: Yes: Chronic low back pain Endocrine: Yes: Hyperthyroidism (Graves) - Past Surgical History Past Surgical History: Yes: Hysterectomy - Alcohol/Substance Use Hx Alcohol Use: No History of Substance Use: reports: None - Smoking History Smoking history: Never smoked Aproximately how many cigarettes per day: 0 - Social History Usual Living Arrangement: With Spouse ADL: Independent Occupation: Retired RN History of Recent Travel: No Home Medications - Allergies Allergies/Adverse Reactions: Allergies Allergy/AdvReac Type Severity Reaction Status Date / Time Penicillins Allergy Verified 06/06/16 20:33 - Home Medications Home Medications: Ambulatory Orders Amlodipine Besylate [Norvasc -] 10 mg PO DAILY 03/22/16 Aspirin [ASA -] 81 mg PO DAILY 03/22/16 Atenolol [Tenormin -] 50 mg PO BID 03/22/16 Escitalopram Oxalate [Lexapro -] 20 mg PO DAILY 03/22/16 Vitamin E 400 unit PO DAILY 03/22/16 Naprosyn - DAILY 06/07/16 Memantine HCl/Donepezil HCl [Namzaric 21 mg-10 mg Capsule] 1 DAILY 06/08/16 Family Disease History - Family Disease History Family Disease History: Other: Father (: 70's unclear causes), Mother ( 80: unclear causes ), Brother (6 siblings: healthy), Daughter (x 2 healthy) Other Family History: No family history of colroectal cancer Review of Systems - Review of Systems Constitutional: reports: No Symptoms Eyes: reports: No Symptoms HENT: reports: No Symptoms Cardiovascular: reports: No Symptoms Respiratory: reports: No Symptoms Gastrointestinal: reports: No Symptoms Genitourinary: reports: No Symptoms Neurological: reports: Confusion Physical Exam Vital Signs: Vital Signs Temperature 97.6 F 06/08/16 10:59 Pulse Rate 70 06/08/16 11:42 Respiratory Rate 18 06/08/16 11:42 Blood Pressure 154/86 06/08/16 11:42 O2 Sat by Pulse Oximetry (%) 100 06/08/16 11:42 Constitutional: Yes: Well Nourished, No Distress Eyes: Yes: Conjunctiva Clear, EOM Intact HENT: Yes: Atraumatic, Normocephalic Cardiovascular: Yes: S1, S2 Respiratory: Yes: Regular Neurological: Yes: Alert, Cran Nerves II-XII Intact, Other (knows name, age, not oriented to place, month or year) ...Motor Strength: WNL Labs: CBC, BMP 06/08/16 05:20 06/08/16 05:20 Assessment/Plan 75 year old woman with history of dementia on aricept, hypertension, Graves disease admitted due to GI bleed, status post colonoscopy which showed resolved diverticular bleed. Neurology consulted for altered mental status. Patients daughter and at bedside. As per daughter, patient has a history of forgetfulness but is more confused from her baseline. No focal weakness, numbness, tingling. No slurred speech, no blurred vision or double vision, no facial droop. Non focal exam- however patient unable to state month, year or place. Knows name and age. Impression Metabolic encephalopathy, possible delirium Recommend CT head without contrast to rule out intracranial pathology Continue supportive care
[2016-06-08] MEDS: amLODIPine BESYLATE 5 MG TABLET (FP) PO SCH (14:55)
[2016-06-09 07:30] LABS: BASOPHIL 0.3 % (0-2.0); EOSINOPHIL 0.8 % (0-4.5); MCH 29.2 pg (25.7-33.7); MCHC 33.2 g/dl (32.0-36.0); MEAN CELL VOLUME 87.9 fl (80-96); MEAN PLT VOLUME 8.1 fl (7.5-11.1); NEUTROPHILS 76.6 % (42.8-82.8); PLATELET COUNT 156 K/MM3 (134-434); RDW 16.3 % (11.6-15.6); WHITE BLOOD COUNT 11.9 K/mm3 (4.0-10.0)
--- NOTE | 2016-06-09 08:12 | PN ---
Physical Exam: SUBJECTIVE: Patient seen and examined and examined at bed. patient was more confused last night, getting out of bed and walking with unsteady gait, Deirdre hugger applied. nurse reports small amount blood in stool, Hb 12.8-->10.6 today Positive orthostatic vital sign. OBJECTIVE: Vital Signs Period Temp Pulse Resp BP Sys/Blanchard Pulse Ox Last 24 Hr 97.0 F-99.1 F 59-98 18-20 122-154/64-86 95-100 GENERAL: The patient is awake, alert, and oriented to person only, in no acute distress. HEAD: Normal with no signs of trauma. EYES: extraocular movements intact, sclera anicteric, conjunctiva clear. No ptosis. pink conjunctiva ENT: Ears normal, nares patent, oropharynx clear without exudates, moist mucous membranes. NECK: Trachea midline, full range of motion, supple. LUNGS: Breath sounds equal, clear to auscultation bilaterally, no wheezes, no crackles, no accessory muscle use. HEART: Regular rate and rhythm, S1, S2 without murmur, rub or gallop. ABDOMEN: Soft, tender LLQ and ULQ, nondistended, normoactive bowel sounds, no guarding, no rebound, no hepatosplenomegaly, no masses. digital rectal exam:weak rectal tone soft black and red stool, EXTREMITIES: 2+ pulses, warm, well-perfused, +1 edema. NEUROLOGICAL: no signs of focal neurological def. Normal speech, gait not observed. PSYCH: Normal mood, normal affect. Laboratory Results - last 24 hr 06/09/16 06/09/16 05:35 05:35 WBC 11.9 H RBC 3.63 Hgb 10.6 L D Hct 31.9 L MCV 87.9 MCHC 33.2 RDW 16.3 H Plt Count 156 MPV 8.1 Neutrophils % 76.6 Lymphocytes % 13.5 D Monocytes % 8.8 Eosinophils % 0.8 Basophils % 0.3 Retic Count 1.59 H D Vitamin B12 Cancelled Active Medications Generic Name Dose Route Start Last Admin Trade Name Freq PRN Reason Stop Dose Admin Amlodipine Besylate 5 mg 06/08/16 13:15 06/08/16 14:55 Norvasc - PO 5 mg DAILY PIETRO Administration Non-Formulary Medication 1 tab 06/08/16 13:45 Memantine Hcl/Donepezil Hcl [Namzaric 21 Mg-10 Mg Capsule] PO DAILY PIETRO ASSESSMENT/PLAN: 75 yo F w/ h/o dementia, HTN, chronic back pain on NSAID and asa admitted to the ICU for suspected lower GI bleed. GI: acute blood loss anemia 2/2 lower GI bleed like 2/2 diverticulosis-S/P EGD and colonoscopy possible diverticular source of bleeding. s/p 2 PRBC- drop in HB 12.8 yesterday to 10.6 t0 10.5 today. per nurse patient melena BM, DR exam showed Melena and red blood. drop in HB not dilutional as patient has not received IV fluids. patient is slightly tachy cardic, and positive orthostatics. -start IVNS 75cc/hr -transfuse for hgb <7 or active bleeding. -GI was notified and consult appreciated -H/H 7pm -EGD with no bleeding. -diet clear liquids per GI AMS: Acute encephalopathy v possible delirium- resolved at this time. per daughter thi sis base line mental status. -CT head w/o contrast showed no acute disease -neuro consult appreciated -RPR negative -Vit B12 1704 -UA pending -Monitor and replenish electrolytes imbalance as needed - hypokalemic possibly secondary to blood products -Potassium repleted- -Normal LFTs Restarting Namzaric (21mg-10mg) 1 tab daily PO -restart home medications Hypokalemia- resolved HTN: controled -cont norvasc .Hold other antihypertensive agents -cont to monitor VS . orthostatic hypotenssion: -IVNS Cardiac: HTN - controlled off medication - hold meds for now Endo: Grave's disease (unconfirmed) - not on medication - TSH and free T4 WNL Neuro: dementia - at baseline FEN - NS@75ml/hr - hypernatremia, cont. hydration -clear liquids Prophylaxis - DVT: SCD Disposition --If change in hemodynamics and signs of ongoing active GI bleeding, then would transfer to ICU and obtain CT angiogram to localize bleeding source Code status - Full code Visit type - Emergency Visit Emergency Visit: Yes ED Registration Date: 06/07/16 Care time: The patient presented to the Emergency Department on the above date and was hospitalized for further evaluation of their emergent condition. - New Patient This patient is new to me today: No - Critical Care Critical Care patient: No
[2016-06-09 08:24] LABS: CALCIUM 8.3 mg/dL (8.5-10.1); CREATININE 0.7 mg/dL (0.55-1.02)
[2016-06-09 08:26] LABS: FERRITIN 72.226 ng/ml (6.9-282.5)
--- NOTE | 2016-06-09 08:47 | MSN ---
Progress Note (SOAP) - Subjective Chief Complaint: rectal bleed History of Present Illness: 75 yo female with pmhx of dementia, HTN, GI bleed, diverticulitis, graves, cva and chronic back pain presents with GI bleed since 06/05/16. Yesterday she voided 5x but unsure whether they stools were dark or bloody. Overnight patient had a small dark stool. CBC showed decrease in H&H to 10.6 and 31.9, She had been stable previously. Today she denies headache, dizziness. She says she has back pain in her lumbar radiating to both hips, abdominal pain and weakness - Current Medications Current Medications: Active Medications Amlodipine Besylate (Norvasc -) 5 mg PO DAILY PIETRO Last Admin: 06/08/16 14:55 Dose: 5 mg Non-Formulary Medication (Memantine Hcl/Donepezil Hcl [Namzaric 21 Mg-10 Mg Capsule]) 1 tab PO DAILY [facility] - Objective Vital Signs: Vital Signs Temperature 99.0 F 06/09/16 06:00 Pulse Rate 84 06/09/16 06:00 Respiratory Rate 20 06/09/16 06:00 Blood Pressure 122/64 06/09/16 06:00 O2 Sat by Pulse Oximetry (%) 95 06/08/16 21:00 Constitutional: Yes: Well Nourished, No Distress, Calm Eyes: Yes: Conjunctiva Clear, EOM Intact Cardiovascular: Yes: WNL, Regular Rate and Rhythm, S1, S2 Respiratory: Yes: WNL, Regular, Other (did not listen to posterior calle because patient was in a priya) Gastrointestinal: Yes: Normal Bowel Sounds, Soft, Tenderness Musculoskeletal: Yes: Back Pain Peripheral Pulses WNL: Yes Peripheral Pulses: Left Radial: 2+, Right Radial: 2+, Left Doralis Pedis: 2+, Right Dorsalis Pedis: 2+ Edema: No Neurological: Yes: Alert (Not oriented to place and time) Labs Lab Results: CBC, BMP 06/09/16 05:35 06/09/16 05:35 Assessment/Plan 75 yo female with pmhx of dementia, HTN, GI bleed, diverticulitis, graves, cva and chronic back pain presents with GI bleed since 06/05/16 GI bleed -GI consult-stable in H&H since this morning-continue to monitor for changes -surgery consulted -Clear liquids -d/c Protonix drip -CBC drop in H&H to 10.6 and 31.9-check at 7pm -Hold NSAIDs and ASA Altered mental status -Alert to name and date of -neuro consult-possible metabolic encephalopathy or delirium -resume aricept and lexapro -head ct-no acute pathology -B12 elevated -RPR-non reactive Hypokalemia -resolved HTN -restart norvasc at lower dose because slightly above goal and continue to hold BP meds Dementia -resume lexapro and aricept Hypothyroidism -Not on medication currently -TSH and T4 normal Hyperlipidemia -on a statin but not sure of medication and the dose DVT Prophylaxis -SCD's b/l F/E/N -clear liquids
[2016-06-09] MEDS: amLODIPine BESYLATE 5 MG TABLET (FP) PO SCH (09:02)
--- NOTE | 2016-06-09 09:08 | PN ---
Progress Note, Physician Chief Complaint: Rectal bleeding History of Present Illness: Patient seen and examined. Awake, alert but confused. Confusion overnight. Daughter at bedside says that the patient did not have a diagnosis of dementia prior to this hospitalization. Neurology consult appreciated, suspect toxic metabolic encephalopathy. CT head negative for acute pathology. Colonoscopy showed diverticulosis without active bleeding. No further bloody bowel movements. - Current Medication List Current Medications: Active Medications Amlodipine Besylate (Norvasc -) 5 mg PO DAILY [facility] Last Admin: 06/08/16 14:55 Dose: 5 mg Non-Formulary Medication (Memantine Hcl/Donepezil Hcl [Namzaric 21 Mg-10 Mg Capsule]) 1 tab PO DAILY [facility] - Objective Vital Signs: Vital Signs Temperature 99.0 F 06/09/16 06:00 Pulse Rate 109 H 06/09/16 08:51 Respiratory Rate 20 06/09/16 08:51 Blood Pressure 111/67 06/09/16 08:51 O2 Sat by Pulse Oximetry (%) 95 06/08/16 21:00 Constitutional: Yes: No Distress, Calm Eyes: Yes: Conjunctiva Clear, EOM Intact HENT: Yes: Atraumatic, Normocephalic Neck: Yes: Supple, Trachea Midline Respiratory: Yes: Regular. No: Accessory Muscle Use Gastrointestinal: Yes: Normal Bowel Sounds, Soft. No: Tenderness Neurological: Yes: Alert, Cran Nerves II-XII Intact, Other (confused) Labs: CBC, BMP 06/09/16 05:35 06/09/16 05:35 INR, PTT INR 1.15 (0.82-1.09) H 06/07/16 09:45 Problem List - Problems (1) Rectal bleeding Code(s): K62.5 - HEMORRHAGE OF ANUS AND RECTUM Assessment/Plan ASSESSMENT: Rectal bleeding Confusion ? Dementia NSAID use PLAN: Diet as per GI No need for acute general surgical intervention DC as per medicine Will sign off the case Please do not hesitate to call me back should the patient's condition change
--- NOTE | 2016-06-09 10:21 | PN ---
Physical Exam: SUBJECTIVE: Patient seen and examined Pt is in chair with daughter at bedside Pt is in a priya vest for safety Pt just finished eating breakfast Daughter said pt is better this morning and having more coherent conversation and less forgetful Daughter was not aware that the patient had dementia and she was being treated for it SHe said that the pt has 7 sisters all over the world and none of them has dementia or knew that Mrs Ramsay had dementia She said the pt had some memory issues but there was no official diagnosis Called [facility] pharmacy to check on the patient medications list. Pt had her first prescription of donepezil in September 2014, pt continue to get refill In November and December 2015 pt was placed on Galantamine which was stopped On April 12 2016, Pt was prescribed Namzaric by Dr Alejandra Hughes Pt said Dr Hughes is her neurologist The daughter confided that she never had the opportunity Accompany the patient When she goees to Dr Hughes office ' OBJECTIVE: Vital Signs Period Temp Pulse Resp BP Sys/Blanchard Pulse Ox Last 24 Hr 97.0 F-99.1 F 59-109 18-20 111-154/64-86 95-100 GENERAL: The patient is awake, alert, and oriented person in no acute distress. HEAD: Normal with no signs of trauma. membranes. NECK: Trachea midline, full range of motion, supple. LUNGS: Breath sounds equal, clear to auscultation bilaterally, no wheezes, no crackles, no accessory muscle use. HEART: Regular rate and rhythm, S1, S2 without murmur, rub or gallop. ABDOMEN: Soft, nontender, nondistended, normoactive bowel sounds, no guarding, no rebound, no hepatosplenomegaly, no masses. EXTREMITIES: 2+ pulses, warm, well-perfused, no edema. NEUROLOGICAL: Cranial nerves II through XII grossly intact. Normal speech, gait not observed. forgetful. strength 4/5 equal in all ext PSYCH: Normal mood, normal affect. SKIN: Warm, dry, normal turgor, no rashes or lesions noted Laboratory Results - last 24 hr 06/09/16 06/09/16 06/09/16 05:35 05:35 05:35 WBC 11.9 H RBC 3.63 Hgb 10.6 L D Hct 31.9 L MCV 87.9 MCHC 33.2 RDW 16.3 H Plt Count 156 MPV 8.1 Neutrophils % 76.6 Lymphocytes % 13.5 D Monocytes % 8.8 Eosinophils % 0.8 Basophils % 0.3 Retic Count 1.59 H D Sodium 147 H Potassium 3.9 Chloride 112 H Carbon Dioxide 28 Anion Gap 7 L BUN 15 D Creatinine 0.7 D Random Glucose 103 Calcium 8.3 L Ferritin 72.226 Vitamin B12 1704 H Cancelled RPR Titer 06/09/16 05:35 WBC RBC Hgb Hct MCV MCHC RDW Plt Count MPV Neutrophils % Lymphocytes % Monocytes % Eosinophils % Basophils % Retic Count Sodium Potassium Chloride Carbon Dioxide Anion Gap BUN Creatinine Random Glucose Calcium Ferritin Vitamin B12 RPR Titer Nonreactive Active Medications Generic Name Dose Route Start Last Admin Trade Name Freq PRN Reason Stop Dose Admin Amlodipine Besylate 5 mg 06/08/16 13:15 06/09/16 09:02 Norvasc - PO 5 mg DAILY [facility] Administration Non-Formulary Medication 1 tab 06/08/16 13:45 Memantine Hcl/Donepezil Hcl [Namzaric 21 Mg-10 Mg Capsule] PO DAILY [facility] [place] MRI Brain w/o Contrast 11/16/2015: Unremarkable MRI of the orbits. Multiple foci of small vessel infarction in the periventricular white matter, there is no acute infarction or hemorrhage. Ectasia of the supraclinoid portion of the right internal carotid which appears to be reaching the right optic nerve. Evaluation with MRA would be helpful to rule out an aneurysm. MRA Brain 12/10/2015: There is no evidence of aneurysm, vascular malformation. Symmetrical ectasia, vascular looping of the supraclinoid internal carotid arteries is noted. Dominant left vertebral artery. Decreased caliber of the distal right vertebral artery in comparison to the contralateral side. At the junction of the both vertebral arteries origin of the basilar artery, narrowing of the origin of basilar artery is noted. Ectatic basilar artery. CT head w/o contrast : No evidence of acute intracranial hemorrhage, edema, midline shift, mass effect, or skull fracture. No CT evidence of acute territorial infarction ASSESSMENT/PLAN: 75 year old female with pmh of dementia, HTN, HPLD admitted for Acute GI bleed now with worsening dementia per family. Always consider a CVA as a possible cause. Could possibly be metabolic encephalopathy with the GI bleed/anemia/General medical condition. Also, the symptoms can be rt not being on Aricept and Lexapro since admission. Impression Metabolic encephalopathy r/o CVA, Medication effect Alzheimer Dementia (Moderate/Severe) Plan CT head w/o contrast showed no acute disease RPR non reactive Vit B12 1704 UA pending collection Monitor for electrolytes imbalance Restarting Namzaric (21mg-10mg) 1 tab daily PO Medication is non formulary, Instructed daughter to bring medication to hospital for pharmacy verification while the patient is here Consider Memantine Hcl 10mg po BID and Donepezil Hcl 10mg Po QHS in the meantime Disposition Thank you for the consulting opportunity. Case discussed with Dr Umana, Neurology Attending Physician, final recommendation to follow in her note. Visit type - Emergency Visit Emergency Visit: Yes ED Registration Date: 06/07/16 Care time: The patient presented to the Emergency Department on the above date and was hospitalized for further evaluation of their emergent condition. - New Patient This patient is new to me today: No - Critical Care Critical Care patient: No
--- NOTE | 2016-06-09 11:21 | PN ---
Progress Note (short form) - Note Progress Note: Consult Consult Specialty:: Neurology Reason for Consultation:: Altered mental status - History of Present Illness History of Present Illness: 75 year old woman with history of dementia on aricept, hypertension, Graves disease admitted due to GI bleed, status post colonoscopy which showed resolved diverticular bleed. Neurology consulted for altered mental status. As per , the patient follows with Dr Burgos for history of "memory loss," is on namzaric, (used for moderate-severe Alzheimer's dementia). No new events overnight. - Past Medical History [employer]: Yes: CVA, Dementia Cardio/Vascular: Yes: HTN, Hyperlipdemia Gastrointestinal: Yes: Diverticulitis, GI Bleed ...: No Musculoskeletal: Yes: Chronic low back pain Endocrine: Yes: Hyperthyroidism (Graves) - Past Surgical History Past Surgical History: Yes: Hysterectomy - Alcohol/Substance Use Hx Alcohol Use: No History of Substance Use: reports: None - Smoking History Smoking history: Never smoked Aproximately how many cigarettes per day: 0 - Social History Usual Living Arrangement: With Spouse ADL: Independent Occupation: Retired RN History of Recent Travel: No Home Medications - Allergies Allergies/Adverse Reactions: Allergies Allergy/AdvReac Type Severity Reaction Status Date / Time Penicillins Allergy Verified 06/06/16 20:33 - Home Medications Home Medications: Ambulatory Orders Amlodipine Besylate [Norvasc -] 10 mg PO DAILY 03/22/16 Aspirin [ASA -] 81 mg PO DAILY 03/22/16 Atenolol [Tenormin -] 50 mg PO BID 03/22/16 Escitalopram Oxalate [Lexapro -] 20 mg PO DAILY 03/22/16 Vitamin E 400 unit PO DAILY 03/22/16 Naprosyn - DAILY 06/07/16 Memantine HCl/Donepezil HCl [Namzaric 21 mg-10 mg Capsule] 1 DAILY 06/08/16 Family Disease History - Family Disease History Family Disease History: Other: Father (: 70's unclear causes), Mother ( 80: unclear causes ), Brother (6 siblings: healthy), Daughter (x 2 healthy) Other Family History: No family history of colroectal cancer Review of Systems - Review of Systems Constitutional: reports: No Symptoms Eyes: reports: No Symptoms HENT: reports: No Symptoms Cardiovascular: reports: No Symptoms Respiratory: reports: No Symptoms Gastrointestinal: reports: No Symptoms Genitourinary: reports: No Symptoms Neurological: reports: Confusion Physical Exam Vital Signs: Vital Signs Temperature 97.6 F 06/08/16 10:59 Pulse Rate 70 06/08/16 11:42 Respiratory Rate 18 06/08/16 11:42 Blood Pressure 154/86 06/08/16 11:42 O2 Sat by Pulse Oximetry (%) 100 06/08/16 11:42 Constitutional: Yes: Well Nourished, No Distress Eyes: Yes: Conjunctiva Clear, EOM Intact HENT: Yes: Atraumatic, Normocephalic Cardiovascular: Yes: S1, S2 Respiratory: Yes: Regular Neurological: Yes: Alert, Cran Nerves II-XII Intact, Other (knows name, age, not oriented to place, month or year) ...Motor Strength: WNL Assessment/Plan 75 year old woman with history of dementia on aricept, hypertension, Graves disease admitted due to GI bleed, status post colonoscopy which showed resolved diverticular bleed. Neurology consulted for altered mental status. Non focal exam- however patient unable to state month, year or place. Knows name and age. Impression Metabolic encephalopathy, possible delirium Dementia CT head no acute findings Patient follows with Dr burgos as outpatient for memory loss- was previously on namzaric. Recommend continuing patients home medication for memory loss ( plans on bringing medication to hospital), as this could contribute to worsening memory Continue supportive care Recommend outpatient neuro follow up with Dr Burgos on discharge
--- NOTE | 2016-06-09 12:50 | PN ---
Teaching Attending Note Name of Resident: Pavel Franco ATTENDING PHYSICIAN STATEMENT I saw and evaluated the patient. I reviewed the resident's note and discussed the case with the resident. I agree with the resident's findings and plan as documented. SUBJECTIVE:states she asymptomatic. denies CP, SOB,fever, chills, N/V/C/D. is unsure why she is in the hospital "i guess im sick" OBJECTIVE: Last Vital Signs Temp Pulse Resp BP Pulse Ox 99.0 F 109 H 20 111/67 98 06/09/16 06:00 06/09/16 08:51 06/09/16 08:51 06/09/16 08:51 06/09/16 08:00 General NAD A&Ox1 (self) CV S1 S2 RRR no murmur/rub/gallop Lungs CTA B/L no wheezing/rales/rhonchi Abdomen soft diffusely tender, > in RLQ. normoactive BS Extremities no edema ASSESSMENT AND PLAN: A/P 75yo F with PMH Graves disease, HTn and dementia presented to the ER and was admitted for their emergent condition 1. Acute posthemorrhagic anemia in the setting of GI bleed-s/p 2 units PRBC. significant drop in Hgb. as per RN pt had more melena this morning which could be residual from recent bleed however is concerning with drop in Hgb. does not appear to be dilutional and has not received IVF. pt is also slightly tachycardic which can indicate bleeding or can be from beta anat being held. will repeat hgb now. transfuse for hgb <7 or active bleeding. no repeated episodes since this AM. will call GI back for possible need to re-scope. 2. Acute encephalopathy-was confused in the evening, was placed with vest but no sedating medications given. as per daughter who was present this morning she appears to be at baseline. CT head with no acute findings, vitamin B12 and RPR negative. will re-start home dementia medications. resolved at this time. 3. Hypokalemia- resolved 4. HTN- controlled. cont norvasc. hold other antihypertensive agents 5. Graves disease- TSH WNL. TSH monitoring as outpatient. 6. DVT ppx- SCD
--- NOTE | 2016-06-09 13:45 | PATH ---
Surgical Pathology Report Patient Name: LIAM VASQUEZ [facility]. Rec. #: [id number] /Age/Gender: 1940 (Age: 75) / F Account: [id number] Location: 4 W TELEMETRY U Taken: 06/08/2016 Received: 06/08/2016 Reported: 06/09/2016 Physicians: Reuben Amanda M.D. Specimen(s) Received A: POLYP TRANSVERSE COLON (PROXIMAL) B: POLYP CECUM Clinical History Rectal bleeding Colon polyps, resolved diverticular bleed Final Diagnosis ----- A. Colon, proximal transverse, polyp, polypectomy: CONSISTENT WITH Inflammatory/POSTinflammatory-TYPE polyp. B. Colon, cecum, polyp, polypectomy: polypoid fragment of colonic mucosa with prominent reactive lymphoid aggregate and surface hyperplastic change. ___ Electronically Signed Dung Simmons M.D. Gross Description A. Received in formalin, labeled "proximal transverse colon" is a graham, irregular portion of soft tissue measuring 0.6 cm in greatest dimension. The specimen is submitted in toto in one cassette. B. Received in formalin, labeled "polyp cecum" is a graham, irregular portion of soft tissue measuring 0.2 cm in greatest dimension. The specimen is submitted in toto in one cassette. 06/08/201606/08/2016
[2016-06-09 13:51] LABS: MCHC 32.6 g/dl (32.0-36.0); MEAN PLT VOLUME 8.2 fl (7.5-11.1); PLATELET COUNT 159 K/MM3 (134-434); WHITE BLOOD COUNT 11.3 K/mm3 (4.0-10.0)
[2016-06-09] MEDS: [UNRECOGNIZED DRUG - OTHER] PO SCH (14:18)
[2016-06-09] MEDS: MEMANTINE HCL PO SCH (14:18)
[2016-06-09] MEDS: DONEPEZIL HCL PO SCH (14:18)
[2016-06-09] MEDS: SODIUM CHLORIDE 1,000 ML IV SCH (14:25)
--- NOTE | 2016-06-09 14:45 | PN ---
GI Progress Note Subjective: Small dark BM this AM and earlier in afternoon No abdominal pain - Objective Vital Signs: Vital Signs Pulse Rate 79 06/09/16 14:00 Respiratory Rate 20 06/09/16 14:00 Blood Pressure 119/56 06/09/16 14:00 O2 Sat by Pulse Oximetry (%) 98 06/09/16 14:00 Constitutional: Calm Eyes: No: Sclera Icterus Cardiovascular: Yes: Regular Rate and Rhythm. No: Murmur Respiratory: Yes: CTA Bilaterally Gastrointestinal Inspection: No: Distention ...Auscultate: Yes: Normoactive Bowel Sounds ...Palpate: Yes: Soft. No: Hepatomegaly, Splenomegaly, Tenderness Neurological: Yes: Alert, Oriented Labs: CBC, BMP 06/09/16 13:17 06/09/16 05:35 INR, PTT INR 1.15 (0.82-1.09) H 06/07/16 09:45 Laboratory Tests 06/09/16 06/09/16 05:35 13:17 Hgb 10.6 L D 10.5 L Problem List - Problems (1) Rectal bleeding Assessment/Plan: S/P EGD and colonoscopy: suspected diverticular source of bleeding H/H dropped however stable from morning until afternoon. Remains hemodynamically stable at this point. Would continue to monitor. If change in hemodynamics and signs of ongoing active GI bleeding, then would transfer to ICU and obtain CT angiogram to localize bleeding source Surgery on case Repeat CBC at 7pm Clear liquids for now Code(s): K62.5 - HEMORRHAGE OF ANUS AND RECTUM
--- NOTE | 2016-06-09 14:46 | PN ---
Physical Exam: SUBJECTIVE: Patient seen and examined OBJECTIVE: Vital Signs Period Temp Pulse Resp BP Sys/Blanchard Pulse Ox Last 24 Hr 97.0 F-99.1 F 81-109 18-20 111-154/64-83 95-98 GENERAL: The patient is awake, alert, and fully oriented, in no acute distress. HEAD: Normal with no signs of trauma. EYES: PERRL, extraocular movements intact, sclera anicteric, conjunctiva clear. No ptosis. ENT: Ears normal, nares patent, oropharynx clear without exudates, moist mucous membranes. NECK: Trachea midline, full range of motion, supple. LUNGS: Breath sounds equal, clear to auscultation bilaterally, no wheezes, no crackles, no accessory muscle use. HEART: Regular rate and rhythm, S1, S2 without murmur, rub or gallop. ABDOMEN: Soft, nontender, nondistended, normoactive bowel sounds, no guarding, no rebound, no hepatosplenomegaly, no masses. EXTREMITIES: 2+ pulses, warm, well-perfused, no edema. NEUROLOGICAL: Cranial nerves II through XII grossly intact. Normal speech, gait not observed. PSYCH: Normal mood, normal affect. SKIN: Warm, dry, normal turgor, no rashes or lesions noted Laboratory Results - last 24 hr 06/09/16 06/09/16 06/09/16 05:35 05:35 05:35 WBC 11.9 H RBC 3.63 Hgb 10.6 L D Hct 31.9 L MCV 87.9 MCHC 33.2 RDW 16.3 H Plt Count 156 MPV 8.1 Neutrophils % 76.6 Lymphocytes % 13.5 D Monocytes % 8.8 Eosinophils % 0.8 Basophils % 0.3 Retic Count 1.59 H D Sodium 147 H Potassium 3.9 Chloride 112 H Carbon Dioxide 28 Anion Gap 7 L BUN 15 D Creatinine 0.7 D Random Glucose 103 Calcium 8.3 L Ferritin 72.226 Vitamin B12 1704 H Cancelled RPR Titer 06/09/16 06/09/16 05:35 13:17 WBC 11.3 H RBC 3.60 Hgb 10.5 L Hct 32.1 L MCV 89.0 MCHC 32.6 RDW 16.0 H Plt Count 159 MPV 8.2 Neutrophils % Lymphocytes % Monocytes % Eosinophils % Basophils % Retic Count Sodium Potassium Chloride Carbon Dioxide Anion Gap BUN Creatinine Random Glucose Calcium Ferritin Vitamin B12 RPR Titer Nonreactive Active Medications Generic Name Dose Route Start Last Admin Trade Name Freq PRN Reason Stop Dose Admin Amlodipine Besylate 5 mg 06/08/16 13:15 06/09/16 09:02 Norvasc - PO 5 mg DAILY [facility] Administration Sodium Chloride 1,000 mls @ 75 mls/hr 06/09/16 14:00 06/09/16 14:25 Normal Saline - IV 75 mls/hr ASDIR [facility] Administration Non-Formulary Medication 1 tab 06/08/16 13:45 06/09/16 14:18 Memantine Hcl/Donepezil Hcl [Namzaric 21 Mg-10 Mg Capsule] PO 1 tab DAILY [facility] Administration ASSESSMENT/PLAN:
[2016-06-09 20:02] LABS: MCH 29.2 pg (25.7-33.7); MEAN CELL VOLUME 88.4 fl (80-96); MEAN PLT VOLUME 8.3 fl (7.5-11.1); PLATELET COUNT 159 K/MM3 (134-434); WHITE BLOOD COUNT 10.6 K/mm3 (4.0-10.0)
[2016-06-10 06:06] LABS: SERUM IRON 30 ug/dL (27-139); TOTAL IRON BINDING CAPACITY 212 ug/dL (250-450); UIBC 182 ug/dL (118-369)
[2016-06-10 07:12] LABS: MCH 29.8 pg (25.7-33.7); MCHC 33.5 g/dl (32.0-36.0); MEAN CELL VOLUME 88.9 fl (80-96); MEAN PLT VOLUME 8.1 fl (7.5-11.1); PLATELET COUNT 145 K/MM3 (134-434); WHITE BLOOD COUNT 8.8 K/mm3 (4.0-10.0)
--- NOTE | 2016-06-10 07:42 | PN ---
Physical Exam: SUBJECTIVE: Patient seen and examined OBJECTIVE: Vital Signs Period Temp Pulse Resp BP Sys/Blanchard Pulse Ox Last 24 Hr 99.5 F-100.4 F 75-109 18-20 105-126/54-67 98-98 GENERAL: The patient is awake, alert, and fully oriented, in no acute distress. HEAD: Normal with no signs of trauma. EYES: PERRL, extraocular movements intact, sclera anicteric, conjunctiva clear. No ptosis. ENT: Ears normal, nares patent, oropharynx clear without exudates, moist mucous membranes. NECK: Trachea midline, full range of motion, supple. LUNGS: Breath sounds equal, clear to auscultation bilaterally, no wheezes, no crackles, no accessory muscle use. HEART: Regular rate and rhythm, S1, S2 without murmur, rub or gallop. ABDOMEN: Soft, nontender, nondistended, normoactive bowel sounds, no guarding, no rebound, no hepatosplenomegaly, no masses. EXTREMITIES: 2+ pulses, warm, well-perfused, no edema. NEUROLOGICAL: Cranial nerves II through XII grossly intact. Normal speech, gait not observed. PSYCH: Normal mood, normal affect. SKIN: Warm, dry, normal turgor, no rashes or lesions noted Laboratory Results - last 24 hr 06/09/16 06/09/16 06/09/16 05:35 05:35 05:35 WBC RBC Hgb Hct MCV MCHC RDW Plt Count MPV Sodium 147 H Potassium 3.9 Chloride 112 H Carbon Dioxide 28 Anion Gap 7 L BUN 15 D Creatinine 0.7 D Random Glucose 103 Calcium 8.3 L Iron 30 TIBC 212 L Iron Saturation 14 L Ferritin 72.226 Vitamin B12 1704 H Cancelled Stool Occult Blood RPR Titer 06/09/16 06/09/16 06/09/16 05:35 13:17 15:15 WBC 11.3 H RBC 3.60 Hgb 10.5 L Hct 32.1 L MCV 89.0 MCHC 32.6 RDW 16.0 H Plt Count 159 MPV 8.2 Sodium Potassium Chloride Carbon Dioxide Anion Gap BUN Creatinine Random Glucose Calcium Iron TIBC Iron Saturation Ferritin Vitamin B12 Stool Occult Blood Negative RPR Titer Nonreactive 06/09/16 06/10/16 19:30 05:35 WBC 10.6 H 8.8 RBC 3.27 L 3.20 L Hgb 9.5 L 9.6 L Hct 28.9 L 28.5 L MCV 88.4 88.9 MCHC 33.0 33.5 RDW 16.0 H 16.0 H Plt Count 159 145 MPV 8.3 8.1 Sodium Potassium Chloride Carbon Dioxide Anion Gap BUN Creatinine Random Glucose Calcium Iron TIBC Iron Saturation Ferritin Vitamin B12 Stool Occult Blood RPR Titer Active Medications Generic Name Dose Route Start Last Admin Trade Name Markq PRN Reason Stop Dose Admin Amlodipine Besylate 5 mg 06/08/16 13:15 06/09/16 09:02 Norvasc - PO 5 mg DAILY [facility] Administration Sodium Chloride 1,000 mls @ 75 mls/hr 06/09/16 14:00 06/09/16 14:25 Normal Saline - IV 75 mls/hr ASDIR [facility] Administration Non-Formulary Medication 1 tab 06/08/16 13:45 06/09/16 14:18 Memantine Hcl/Donepezil Hcl [Namzaric 21 Mg-10 Mg Capsule] PO 1 tab DAILY [facility] Administration ASSESSMENT/PLAN: Current Medications Amlodipine Besylate (Norvasc -) 5 mg PO DAILY [facility] Last Admin: 06/09/16 09:02 Dose: 5 mg Sodium Chloride (Normal Saline -) 1,000 mls @ 75 mls/hr IV ASDIR [facility] Last Admin: 06/09/16 14:25 Dose: 75 mls/hr Non-Formulary Medication (Memantine Hcl/Donepezil Hcl [Namzaric 21 Mg-10 Mg Capsule]) 1 tab PO DAILY [facility] Last Admin: 06/09/16 14:18 Dose: 1 tab
--- NOTE | 2016-06-10 08:26 | MSN ---
Progress Note (SOAP) - Subjective Chief Complaint: rectal bleed History of Present Illness: 5 yo female with pmhx of dementia, HTN, GI bleed, diverticulitis, graves, cva and chronic back pain presents with GI bleed since 06/05/16. Yesterday she had one episode of dark stool. Overnight patient had no bowel movements. CBC showed decrease yesterday in H&H to 10.6 and 31.9and today remains stable. Today she denies headache, dizziness. She says she has back pain in her lumbar radiating to both hips, pain in her shoulders, abdominal pain and weakness - Current Medications Current Medications: Active Medications Amlodipine Besylate (Norvasc -) 5 mg PO DAILY [facility] Last Admin: 06/09/16 09:02 Dose: 5 mg Sodium Chloride (Normal Saline -) 1,000 mls @ 75 mls/hr IV ASDIR [facility] Last Admin: 06/09/16 14:25 Dose: 75 mls/hr Non-Formulary Medication (Memantine Hcl/Donepezil Hcl [Namzaric 21 Mg-10 Mg Capsule]) 1 tab PO DAILY [facility] Last Admin: 06/09/16 14:18 Dose: 1 tab - Objective Vital Signs: Vital Signs Temperature 100.3 F H 06/10/16 08:12 Pulse Rate 85 06/10/16 08:12 Respiratory Rate 20 06/10/16 08:12 Blood Pressure 146/56 06/10/16 08:12 O2 Sat by Pulse Oximetry (%) 98 06/09/16 21:00 Constitutional: Yes: Well Nourished, No Distress, Calm Eyes: Yes: Conjunctiva Clear, EOM Intact Cardiovascular: Yes: WNL, Regular Rate and Rhythm, S1, S2 Respiratory: Yes: WNL, Regular, CTA Bilaterally Gastrointestinal: Yes: Normal Bowel Sounds, Soft, Tenderness Musculoskeletal: Yes: Back Pain Extremities: Yes: WNL Peripheral Pulses WNL: Yes Peripheral Pulses: Left Radial: 2+, Right Radial: 2+, Left Doralis Pedis: 2+, Right Dorsalis Pedis: 2+ Edema: No Neurological: Yes: Alert (oriented to place but not time ) Psychiatric: Yes: Alert (oriented to place but not time) Labs Lab Results: CBC, BMP 06/10/16 05:35 06/09/16 05:35 Assessment/Plan 5 yo female with pmhx of dementia, HTN, GI bleed, diverticulitis, graves, cva and chronic back pain presents with GI bleed since 06/05/16 GI bleed -GI consult-stable in H&H -surgery consulted -Clear liquids -d/c Protonix drip -H&H 9.6 and 28.5-stable since yesterday -Hold NSAIDs and ASA Altered mental status -Alert to name and date of and place-yesterday alert only to place and birthday -r/o UTI-negative UA -CXR report pending Hypokalemia -resolved Dementia -resume lexapro and aricept Hypothyroidism -Not on medication currently -TSH and T4 normal Hyperlipidemia -on a statin but not sure of medication and the dose DVT Prophylaxis -SCD's b/l F/E/N -clear liquids
[2016-06-10] MEDS: DONEPEZIL HCL PO SCH (09:23)
[2016-06-10] MEDS: [UNRECOGNIZED DRUG - OTHER] PO SCH (09:23)
[2016-06-10] MEDS: MEMANTINE HCL PO SCH (09:23)
[2016-06-10] MEDS: amLODIPine BESYLATE 5 MG TABLET (FP) PO SCH (09:23)
[2016-06-10 11:52] LABS: URINE APPEARANCE SLCLOUDY; URINE BILIRUBIN NEGATIVE (NEGATIVE); URINE BLOOD NEGATIVE (NEGATIVE); URINE COLOR LTYELLOW; URINE GLUCOSE (UA) NEGATIVE (NEGATIVE); URINE KETONE NEGATIVE (NEGATIVE); URINE LEUK ESTERASE NEGATIVE (NEGATIVE); URINE NITRITE NEGATIVE (NEGATIVE); URINE PROTEIN NEGATIVE (NEGATIVE); URINE UROBILINOGEN NEGATIVE E.U./dl (0.2-1.0)
[2016-06-10 13:02] LABS: MCHC 32.4 g/dl (32.0-36.0); MEAN CELL VOLUME 89.3 fl (80-96); MEAN PLT VOLUME 7.8 fl (7.5-11.1); PLATELET COUNT 144 K/MM3 (134-434); RDW 16.4 % (11.6-15.6); WHITE BLOOD COUNT 7.6 K/mm3 (4.0-10.0)
[2016-06-10] MEDS: SODIUM CHLORIDE 1,000 ML IV SCH (14:31)
[2016-06-10] MEDS: guaiFENesin 200 MG/10 ML 10 ML UNIT-DOSE CUPS PO PRN (15:38)
--- NOTE | 2016-06-10 17:19 | PN ---
Teaching Attending Note Name of Resident: Pavel Franco ATTENDING PHYSICIAN STATEMENT I saw and evaluated the patient. I reviewed the resident's note and discussed the case with the resident. I agree with the resident's findings and plan as documented. SUBJECTIVE:c/o productive cough of white sputum. denies CP, SOB, fever, chills, N/V/C/D OBJECTIVE: Last Vital Signs Temp Pulse Resp BP Pulse Ox 100.3 F H 82 20 128/68 93 L 06/10/16 08:12 06/10/16 14:49 06/10/16 14:49 06/10/16 14:49 06/10/16 08:00 General NAD A&Ox1 (self) CV S1 S2 RRR no murmur/rub/gallop Lungs CTA B/L no wheezing/rales/rhonchi Abdomen soft NT/ND Extremities no edema ASSESSMENT AND PLAN: A/P 75yo F with PMH Graves disease, HTn and dementia presented to the ER and was admitted for their emergent condition 1. Acute posthemorrhagic anemia in the setting of GI bleed-s/p 2 units PRBC. Hgb dropped yesterday with small amount of melena but FOBT negative. hgb now stable. no repeated episodes. 2. Fever- Tm 100.4 had leukocytosis which has resolved however with low grade fever and cough, check CXR and UA. 3. Acute encephalopathy-no repeated episodes of confusion noted by overnight. re -started on home dementia medications. at baseline 4. Hypokalemia- resolved 5. HTN- controlled. cont norvasc. hold other antihypertensive agents 6. Graves disease- TSH WNL. TSH monitoring as outpatient. 7. DVT ppx- SCD
[2016-06-10] MEDS: ACETAMINOPHEN 325 MG TABLET (FP) PO PRN (18:14)
--- NOTE | 2016-06-10 18:21 | PN ---
Physical Exam: SUBJECTIVE: Patient seen and examined at bed side. Patient reported to daughter light headedness and and cough. Orthostatics VS normal. CXR no acute Pathology. patient walked well with PT. no BM over night. H/H stable. fever 100.8 Denies any cp, sob, N/V/D/C. OBJECTIVE: Vital Signs Period Temp Pulse Resp BP Sys/Blanchard Pulse Ox Last 24 Hr 99.9 F-100.3 F 82-94 18-20 117-146/54-68 93-98 GENERAL: The patient is awake, alert, and oriented to person only, in no acute distress. HEAD: Normal with no signs of trauma. EYES: extraocular movements intact, sclera anicteric, conjunctiva clear. No ptosis. pink conjunctiva ENT: Ears normal, nares patent, oropharynx clear without exudates, moist mucous membranes. NECK: Trachea midline, full range of motion, supple. LUNGS: Breath sounds equal, clear to auscultation bilaterally, no wheezes, no crackles, no accessory muscle use. HEART: Regular rate and rhythm, S1, S2 without murmur, rub or gallop. ABDOMEN: Soft, tender LLQ and ULQ, nondistended, normoactive bowel sounds, no guarding, no rebound, no hepatosplenomegaly, no masses. EXTREMITIES: 2+ pulses, warm, well-perfused, +1 edema. NEUROLOGICAL: no signs of focal neurological def. Normal speech, gait not observed. PSYCH: Normal mood, normal affect. Laboratory Results - last 24 hr 06/09/16 06/09/16 06/10/16 05:35 19:30 05:35 WBC 10.6 H 8.8 RBC 3.27 L 3.20 L Hgb 9.5 L 9.6 L Hct 28.9 L 28.5 L MCV 88.4 88.9 MCHC 33.0 33.5 RDW 16.0 H 16.0 H Plt Count 159 145 MPV 8.3 8.1 Iron 30 TIBC 212 L Iron Saturation 14 L Urine Color Urine Appearance Urine pH Ur Specific Nelson Urine Protein Urine Glucose (UA) Urine Ketones Urine Blood Urine Nitrite Urine Bilirubin Urine Urobilinogen Ur Leukocyte Esterase 06/10/16 06/10/16 10:30 12:35 WBC 7.6 RBC 3.32 L Hgb 9.6 L Hct 29.7 L MCV 89.3 MCHC 32.4 RDW 16.4 H Plt Count 144 MPV 7.8 Iron TIBC Iron Saturation Urine Color Ltyellow Urine Appearance Slcloudy Urine pH 6.0 Ur Specific Nelson 1.012 Urine Protein Negative Urine Glucose (UA) Negative Urine Ketones Negative Urine Blood Negative Urine Nitrite Negative Urine Bilirubin Negative Urine Urobilinogen Negative Ur Leukocyte Esterase Negative Active Medications Generic Name Dose Route Start Last Admin Trade Name Freq PRN Reason Stop Dose Admin Acetaminophen 650 mg 06/10/16 17:58 Tylenol - PO Q6H PRN FEVER OR PAIN Amlodipine Besylate 5 mg 06/08/16 13:15 06/10/16 09:23 Norvasc - PO 5 mg DAILY PIETRO Administration Guaifenesin 10 ml 06/10/16 15:23 06/10/16 15:38 Robitussin - PO 10 ml Q4H PRN Administration COUGH Non-Formulary Medication 1 tab 06/08/16 13:45 06/10/16 09:23 Memantine Hcl/Donepezil Hcl [Namzaric 21 Mg-10 Mg Capsule] PO 1 tab DAILY PIETRO Administration ASSESSMENT/PLAN: 75 yo F w/ h/o dementia, HTN, chronic back pain on NSAID and asa admitted to the ICU for suspected lower GI bleed. fever, no leukocytosis, H/H stable, clinically stable GI: acute blood loss anemia 2/2 lower GI bleed like 2/2 diverticulosis-S/P EGD and colonoscopy possible diverticular source of bleeding. s/p 2 PRBC- NO BM over night, patient is slightly tachy cardic, and normal orthostatics. -d/c IVNS -transfuse for hgb <7 or active bleeding. -H/H in AM -advance diet per GI Fever: cough V GIi origin. no leukcosytosis, no sign of infection, UA neg, CXR neg, - Blood culture ordered -Tylenol AMS: Acute encephalopathy v possible delirium- resolved at this time. per daughter this is base line mental status. Hypokalemia- resolved HTN: controled -cont norvasc .Hold other antihypertensive agents -cont to monitor VS . light headedness: resolved, normal orthostatic BP Endo: Grave's disease (unconfirmed) - not on medication - TSH and free T4 WNL Neuro: dementia - at baseline FEN -oral hydration -replete electrolyte as needed -advance diet per GI (nurse discuss case with GI attending) Prophylaxis - DVT: SCD Disposition --If change in hemodynamics and signs of ongoing active GI bleeding, then would transfer to ICU and obtain CT angiogram to localize bleeding source Code status - Full code Visit type - Emergency Visit Emergency Visit: Yes ED Registration Date: 06/07/16 Care time: The patient presented to the Emergency Department on the above date and was hospitalized for further evaluation of their emergent condition. - New Patient This patient is new to me today: No - Critical Care Critical Care patient: No
--- NOTE | 2016-06-10 19:30 | PN ---
Progress Note (short form) - Note Progress Note: GI NOte: Ceclia denies pain. NO rectal bleeding. Hb 9.4 Abd: soft, nontender Impression: Bleeding resolved Plan: If Hct remains stable can consider discharge
[2016-06-11] MEDS ORDERED: PT OWN MED DRAWER 7, Y5N ONE (00:49)
[2016-06-11] MEDS: ACETAMINOPHEN 325 MG TABLET (FP) PO PRN ×2 (00:53→18:43)
[2016-06-11] MEDS: guaiFENesin 200 MG/10 ML 10 ML UNIT-DOSE CUPS PO PRN ×3 (00:53→18:40)
[2016-06-11 08:32] LABS: MCH 29.6 pg (25.7-33.7); MCHC 33.1 g/dl (32.0-36.0); MEAN CELL VOLUME 89.4 fl (80-96); MEAN PLT VOLUME 8.4 fl (7.5-11.1); PLATELET COUNT 151 K/MM3 (134-434); RDW 15.8 % (11.6-15.6); WHITE BLOOD COUNT 8.1 K/mm3 (4.0-10.0)
[2016-06-11 09:04] LABS: CALCIUM 8.3 mg/dL (8.5-10.1); CREATININE 0.6 mg/dL (0.55-1.02)
[2016-06-11] MEDS: MEMANTINE HCL PO SCH (09:41)
[2016-06-11] MEDS: [UNRECOGNIZED DRUG - OTHER] PO SCH (09:41)
[2016-06-11] MEDS: DONEPEZIL HCL PO SCH (09:41)
[2016-06-11] MEDS: amLODIPine BESYLATE 5 MG TABLET (FP) PO SCH (09:41)
[2016-06-11] MEDS ORDERED: POTASSIUM CHLORIDE 40 MEQ/30 ML UNIT DOSE CUP PO ONE (11:45)
--- NOTE | 2016-06-11 18:39 | PN ---
Progress Note (short form) - Note Progress Note: had 2 episdoes of BRBPR today. denies abdominal pain, N/V/C/D, fever, chills, melena Current Medications Generic Name Dose Route Start Last Admin Trade Name Freq PRN Reason Stop Dose Admin Acetaminophen 650 mg 06/10/16 17:58 06/11/16 00:53 Tylenol - PO 650 mg Q6H PRN Administration FEVER OR PAIN Amlodipine Besylate 5 mg 06/08/16 13:15 06/11/16 09:41 Norvasc - PO 5 mg DAILY PIETRO Administration Guaifenesin 10 ml 06/10/16 15:23 06/11/16 11:52 Robitussin - PO 10 ml Q4H PRN Administration COUGH Non-Formulary Medication 1 tab 06/08/16 13:45 06/11/16 09:41 Memantine Hcl/Donepezil Hcl [Namzaric 21 Mg-10 Mg Capsule] PO 1 tab DAILY PIETRO Administration Last Vital Signs Temp Pulse Resp BP Pulse Ox 99.3 F 90 18 139/78 96 06/11/16 18:00 06/11/16 18:00 06/11/16 18:00 06/11/16 18:00 06/11/16 11:23 General NAD A&Ox2 (self & location) CV S1 S2 RRR no murmur/rub/gallop Lungs CTA B/L no wheezing/rales/rhonchi Abdomen soft NT/ND Extremities no edema CBCD WBC 8.1 K/mm3 (4.0-10.0) 06/11/16 06:00 RBC 3.24 M/mm3 (3.60-5.2) L 06/11/16 06:00 Hgb 9.6 GM/dL (10.7-15.3) L 06/11/16 06:00 Hct 29.0 % (32.4-45.2) L 06/11/16 06:00 MCV 89.4 fl (80-96) 06/11/16 06:00 MCHC 33.1 g/dl (32.0-36.0) 06/11/16 06:00 RDW 15.8 % (11.6-15.6) H 06/11/16 06:00 Plt Count 151 K/MM3 (134-434) 06/11/16 06:00 MPV 8.4 fl (7.5-11.1) 06/11/16 06:00 CMP Sodium 148 mmol/L (136-145) H 06/11/16 06:00 Potassium 3.3 mmol/L (3.5-5.1) L 06/11/16 06:00 Chloride 110 mmol/L (98-107) H 06/11/16 06:00 Carbon Dioxide 29 mmol/L (21-32) 06/11/16 06:00 Anion Gap 9 (8-16) 06/11/16 06:00 BUN 7 mg/dL (7-18) D 06/11/16 06:00 Creatinine 0.6 mg/dL (0.55-1.02) 06/11/16 06:00 Creat Clearance w eGFR > 60 (>60) 06/08/16 05:20 Calcium 8.3 mg/dL (8.5-10.1) L 06/11/16 06:00 Total Bilirubin 0.5 mg/dL (0.2-1.0) 06/08/16 05:20 AST 13 U/L (15-37) L 06/08/16 05:20 ALT 14 U/L (12-78) 06/08/16 05:20 Alkaline Phosphatase 83 U/L (45-117) 06/08/16 05:20 Total Protein 6.0 g/dl (6.4-8.2) L 06/08/16 05:20 Albumin 3.0 g/dl (3.4-5.0) L 06/08/16 05:20 ASSESSMENT AND PLAN: A/P 75yo F with PMH Graves disease, HTn and dementia presented to the ER and was admitted for their emergent condition 1. Acute posthemorrhagic anemia in the setting of GI bleed-s/p 2 units PRBC. Hgb stable however continues to have BRBPR. will trend HGb. if continues to occur may need to consider resection. repeat cbc 2. Fever-afebrile, UA negative and CXR negative. awaiting on Bcx which are still pending. will hold on starting abx at this time 3. Acute encephalopathy-remains at baseline at this time. 4. Hypokalemia- Kcl 40meq 5. HTN- controlled. cont norvasc. hold other antihypertensive agents 6. Graves disease- TSH WNL. TSH monitoring as outpatient. 7. DVT ppx- SCD 8. spoke with family at great lengths present at bedside. concern for pt d/c home due to multiple floor walk up. re-assessed by PT and was able to take several steps very slowly. walked 100feet here without assistance and does not qualify for FR[facility]IS[facility]. will arrange for home PT and VNS which family agrees with. will monitor overnight if BCx result as negative and hgb remain stable will d/c with VNS and FRANCISCA. family verbalizes agreement with the plan Visit type - Emergency Visit Emergency Visit: Yes ED Registration Date: 06/07/16 Care time: The patient presented to the Emergency Department on the above date and was hospitalized for further evaluation of their emergent condition. - New Patient This patient is new to me today: No - Critical Care Critical Care patient: No - Discharge Referral Referred to [facility] Med [facility].C[facility] No
[2016-06-12 05:44] VITALS: TEMP 99.3
[2016-06-12] MEDS ORDERED: POTASSIUM CHLORIDE TABS 20 MEQ TABLET.ER (FP) PO ONE (09:36)
[2016-06-12 09:43] LABS: BASOPHIL 0.6 % (0-2.0); EOSINOPHIL 2.2 % (0-4.5); MCH 29.6 pg (25.7-33.7); MEAN CELL VOLUME 89.6 fl (80-96); MEAN PLT VOLUME 7.5 fl (7.5-11.1); NEUTROPHILS 71.7 % (42.8-82.8); PLATELET COUNT 167 K/MM3 (134-434); RDW 15.5 % (11.6-15.6); WHITE BLOOD COUNT 7.6 K/mm3 (4.0-10.0)
[2016-06-12] MEDS: amLODIPine BESYLATE 5 MG TABLET (FP) PO SCH (09:44)
[2016-06-12] MEDS: guaiFENesin 200 MG/10 ML 10 ML UNIT-DOSE CUPS PO PRN (09:45)
[2016-06-12] MEDS: ACETAMINOPHEN 325 MG TABLET (FP) PO PRN (09:45)
[2016-06-12 10:12] LABS: CALCIUM 7.9 mg/dL (8.5-10.1); CREATININE 0.8 mg/dL (0.55-1.02)
[2016-06-12 11:28] VITALS: BP 115/61; PULSE 85
[2016-06-12] MEDS ORDERED: KCL 10 MEQ IVPB 100 ML IVPB SCH (12:15)
--- NOTE | 2016-06-12 12:15 | PN ---
Teaching Attending Note Name of Resident: Pavel Franco ATTENDING PHYSICIAN STATEMENT I saw and evaluated the patient. I reviewed the resident's note and discussed the case with the resident. I agree with the resident's findings and plan as documented. SUBJECTIVE:c/o productive cough of green sputum, started today. denies SOB, fever, chills, N/V/C/D, no repeated episodes of BRBPR OBJECTIVE: Last Vital Signs Temp Pulse Resp BP Pulse Ox 99.3 F 85 20 115/61 98 06/12/16 10:00 06/12/16 10:00 06/12/16 10:06/12/16 10:00 06/11/16 20:48 General NAD CV S1 S2 RRR no murmur/rub/thakkar lungs CTA B/L no wheezing/rales/rhonchi abdomen soft NT/ND ASSESSMENT AND PLAN: 75yo F with PMH Graves disease, HTn and dementia presented to the ER and was admitted for their emergent condition 1. Acute posthemorrhagic anemia in the setting of GI bleed-s/p 2 units PRBC. no repeated episods of BRBPR. Hgb stable. will cont to hold asa. re-start at PMD discretion. 2. Fever-Tm 100.4 with productive cough. CXR repeated with no infiltrate. will d /c on zpack as having productive sputum. BCx negative. 3. Acute encephalopathy-remains at baseline at this time. 4. Hypokalemia- Kcl 40meq, will d/c kdur for 5 days. repeat K by PMD 5. HTN- controlled. cont norvasc. hold other antihypertensive agents 6. Graves disease- TSH WNL. TSH monitoring as outpatient. 7. DVT ppx- SCD 8. d/c home with VNS and home PT
[2016-06-12] MEDS: [UNRECOGNIZED DRUG - OTHER] PO SCH (12:19)
[2016-06-12] MEDS: MEMANTINE HCL PO SCH (12:19)
[2016-06-12] MEDS: DONEPEZIL HCL PO SCH (12:19)
[2016-06-12] MEDS ORDERED: AZITHROMYCIN 250 MG TABLET (FP) PO ONE (12:55)
--- NOTE | 2016-06-16 13:17 | DS ---
Physical Exam: SUBJECTIVE: this is a discharge summary for 06/12/16 retrospectively. OBJECTIVE: per medical chart c/o productive cough of green sputum, started today. denies SOB, fever, chills, N/V/C/D, no repeated episodes of BRBPR PHYSICAL EXAM: per medical chart General NAD CV S1 S2 RRR no murmur/rub/thakkar lungs CTA B/L no wheezing/rales/rhonchi abdomen soft NT/ND LABS HOSPITAL COURSE: Date of Admission:06/07/16 Date of Discharge: 06/12/16 75 yo F with sign PMHX of dementia, HTN and chronic back pain, who presents to the ED with BRBPR and dark stools 6x since 5PM 06/05/16. The patient denies any associated abdominal pain. The patient reports 3 episodes of dark stools this evening with bright red blood found in the toilet. Also complaining of diarrhea. NO recent abx use. She takes daily baby aspirin and naproxen TID for back pain. Last colonoscopy > 10 yrs ago. She denies chest pain, shortness of breath, headache and dizziness. She denies fever, chills, nausea, vomit, and constipation. She denies dysuria, frequency, urgency and hematuria. found to havd Stool occult blood (+), EKG- NSR no st or t wave abnormalities, admitted to the ICU for suspected lower GI bleed. GI: acute lower GI bleed like 2/2 diverticulosis--s/p 2 PRBC- HB 12.8 stable.-colonoscopy done showing diverticulae but no active bleeding. Residual blood found throughtout the colon with universal diverticulosis suggesting a resolved diverticular bleed. -Ceca; and transverse colon polyps removed. - Advised office followup in 1 year and repeat colonoscopy in 3 years. -surgery evaluated but no intervention required at this time. AMS: Acute encephalopathy v possible delirium- possibly metabolic encephalopathy v medication induced v CVA reported by will correct electrolytes. stable as patient is base line. Hypokalemia- resolved, HTN- slightly above goal, Cardiac: HTN - controlled off medication, Endo: Grave's disease (unconfirmed)- not on medication, - TSH and free T4 WNL. Neuro: dementia - at baseline 75yo F with PMH Graves disease, HTn and dementia presented to the ER and was admitted for their emergent condition Acute posthemorrhagic anemia in the setting of GI bleed-s/p 2 units PRBC. no repeated episods of BRBPR. Hgb stable. cont to hold asa. re-start at PMD discretion. Fever-Tm 100.4, with productive cough. CXR repeated with no infiltrate. will d/c on zpack as having productive sputum. BCx negative. Acute encephalopathy-remains at baseline at this time. Hypokalemia- Kcl 40meq, will d/ c kdur for 5 days. repeat K by PMD, HTN- controlled. cont norvasc. hold other antihypertensive agents OK to discharge by dr. Amanda Gi doctor on GI stand point. d/c home with VNS and home PT. patient is clinically stable per medical chart. . Minutes to complete discharge: 35 Discharge Summary Reason For Visit: RECTAL BLEEDING Condition: Stable - Instructions Diet, Activity, Other Instructions: You are being discharged home. Please call and follow up with your primary care provider in one week to assess your health. Please call and follow up with neurology DR. Burgos in 2 week. Please call and follow up with GI, Dr Chuck Amanda in 1 week. Please take over the counter Tylenol as directed for pain. Please hold your aspirin and blood thinners until it is cleared by your Primary care doctor, as it may increase you chance of bleeding Please take and complete a course of Zpack antibiotics for your cough. Please reports to the ER or the nearest ER if you have any persistent and worsening symptoms, chest pain, palpitation, fevers, chills, night sweats, Nausea, Vomiting, severe headache dizziness or loss of consciousness. Referrals: Dom Rodriguez MD [Primary Care Provider] - 1 Week Reuben Amanda MD [Staff Physician] - 1 Week Valentina Burgos MD [Staff Physician] - 2 Weeks Disposition: VNS/HOME HEALTH CARE - Home Medications Comprehensive Discharge Medication List: Ambulatory Orders Escitalopram Oxalate [Lexapro -] 20 mg PO DAILY 03/22/16 Vitamin E 400 unit PO DAILY 03/22/16 Memantine HCl/Donepezil HCl [Namzaric 21 mg-10 mg Capsule] 1 DAILY 06/08/16 Acetaminophen [Tylenol .Regular Strength -] 650 mg PO Q6H PRN #0 tablet Amlodipine Besylate [Norvasc -] 5 mg PO DAILY tablet 06/12/16 Azithromycin 250 mg PO DAILY #4 tablet 06/12/16 Guaifenesin [Robitussin -] 10 ml PO Q4H PRN #0 cup 06/12/16 Potassium Chloride [K-Dur -] 20 meq PO DAILY #5 tablet.er 06/12/16 This patient is new to me today: Yes Date on this admission: 06/16/16 Emergency Visit: No Critical Care patient: No - Discharge Referral Referred to [facility] Med [facility].: No
== END 2016-06-12 13:26 | disposition home health service (06) | DRG 377 ==
LOC: JER 20:26 → JERBED 06-07 00:32 → UNDOADMIN 06-07 01:28 → JERBED 06-07 01:28 → JICU 06-07 06:42 → JERBED 06-07 06:42 → J4W 06-08 06:23
PROVIDERS: ADMIT Internal Medicine; ATTEND Internal Medicine
PROC: 30233N1 Transfusion of Nonautologous Red Blood Cells into Peripheral Vein, Percutaneous Approach (ICD-10-PCS; 2016-06-07)
PROC: 0DJ08ZZ Inspection of Upper Intestinal Tract, Via Natural or Artificial Opening Endoscopic (ICD-10-PCS; principal; 2016-06-07 13:30)
PROC: 0DBH8ZX Excision of Cecum, Via Natural or Artificial Opening Endoscopic, Diagnostic (ICD-10-PCS; 2016-06-08)
PROC: 0DBL8ZX Excision of Transverse Colon, Via Natural or Artificial Opening Endoscopic, Diagnostic (ICD-10-PCS; 2016-06-08)
DX: K57.31 Diverticulosis of large intestine without perforation or abscess with bleeding (principal); G93.40 Encephalopathy, unspecified; D62 Acute posthemorrhagic anemia; E05.00 Thyrotoxicosis with diffuse goiter without thyrotoxic crisis or storm; I10 Essential (primary) hypertension; E87.6 Hypokalemia; F03.90 Unspecified dementia, unspecified severity, without behavioral disturbance, psychotic disturbance, mood disturbance, and anxiety; I95.9 Hypotension, unspecified; M54.9 Dorsalgia, unspecified; E03.9 Hypothyroidism, unspecified; R44.1 Visual hallucinations; D12.0 Benign neoplasm of cecum; D12.3 Benign neoplasm of transverse colon
CPT/HCPCS: 36415; 36430; 70450-TC; 71010-TC; 71020-TC; 80048; 80053; 81003; 82272; 82550; 82607; 82728; 83540; 83550; 83735; 84100; 84439; 84443; 84484; 85025; 85027; 85044; 85610; 86593; 86850; 86900; 86901; 86922; 87040; 88305-TC; 90670; 93005; 93010; 97116-GP; 97161-GP; 99283-25; P9038; P9058

== ENCOUNTER 2018-05-15 10:55 | Day surgery (SDC) | payer OTHER ==
[2018-05-14 13:08] VITALS: BMI 20.5
[2018-05-15 12:27] VITALS: TEMP 98.6
[2018-05-15 13:20] VITALS: BP 156/73; PULSE 59
--- NOTE | 2018-05-16 17:18 | PATH ---
Surgical Pathology Report Patient Name: LIAM VASQUEZ [facility]. Rec. #: [id number] /Age/Gender: 1940 (Age: 77) / F Account: [id number] Location: U-ENDOSCOPY Taken: 05/15/2018 Received: 05/15/2018 Reported: 05/16/2018 Physicians: Hayden Vasquez D.O. Specimen(s) Received A: ANTRUM B: BODY Clinical History Weight loss Postoperative diagnosis: Gastritis Final Diagnosis A. STOMACH, ANTRUM, BIOPSY: GASTRIC ANTRAL MUCOSA WITH MODERATE CHRONIC GASTRITIS AND INTESTINAL METAPLASIA. IMMUNOHISTOCHEMICAL STAIN FOR H. PYLORI IS NEGATIVE. B. STOMACH, BODY, BIOPSY: GASTRIC BODY MUCOSA WITH MILD CHRONIC GASTRITIS. IMMUNOHISTOCHEMICAL STAIN FOR H. PYLORI IS NEGATIVE. Electronically Signed Brenda Walton M.D. Gross Description A. Received in formalin, labeled "biopsy antrum" is a graham, irregular portion of soft tissue measuring 0.4 cm. in greatest dimension. The specimen is submitted in toto in one cassette. B. Received in formalin, labeled "biopsy body of stomach" are 3 graham, irregular portions of soft tissue ranging from 0.2-0.3 cm. in greatest dimension. The specimens are submitted in toto in one cassette. /05/15/201805/15/2018
== END 2018-05-15 13:35 | disposition home or self-care (01) ==
LOC: JASU-ENDO 10:55
PROVIDERS: ATTEND Internal Medicine Gastroenterology
PROC: 0DB68ZX Excision of Stomach, Via Natural or Artificial Opening Endoscopic, Diagnostic (ICD-10-PCS; principal; 2018-05-15 12:15)
DX: K29.70 Gastritis, unspecified, without bleeding (principal); R63.4 Abnormal weight loss
CPT/HCPCS: 88305-TC; 88342-TC

== ENCOUNTER 2020-01-29 09:46 | Inpatient (IN) | payer OTHER ==
[2020-01-29 11:16] LABS: BASO % 0.7 % (0-2.0); EOS % 1.6 % (0-4.5); HEMATOCRIT 39.9 % (32.4-45.2); HEMOGLOBIN 12.5 GM/dL (10.7-15.3); LYMPH % 12.9 % (8-40); MCH 28.9 pg (25.7-33.7); MCHC 31.4 g/dl (32.0-36.0); MEAN CELL VOLUME 92.1 fl (80-96); MEAN PLT VOLUME 9.1 fl (7.5-11.1); MONO % 3.1 % (3.8-10.2); NEUT % 81.7 % (42.8-82.8); PLATELET COUNT 168 K/MM3 (134-434); RBC 4.33 M/mm3 (3.60-5.2); RDW 15.2 % (11.6-15.6); WHITE BLOOD COUNT 13.5 K/mm3 (4.0-10.0)
[2020-01-29 11:44] LABS: ALBUMIN 2.4 g/dl (3.4-5.0); BILIRUBIN,TOTAL 0.4 mg/dL (0.2-1); BLOOD UREA NITROGEN 17.2 mg/dL (7-18); CALCIUM 8.9 mg/dL (8.5-10.1); CHLORIDE 131 mmol/L (98-107); CO2 28 mmol/L (21-32); CREATININE 0.8 mg/dL (0.55-1.3); GLUCOSE,RANDOM 96 mg/dL (74-106); LIPASE 27 U/L (73-393); N-TERMINAL BNP 218.1 pg/ml (5-450); POTASSIUM 3.8 mmol/L (3.5-5.1); SGOT/AST 8 U/L (15-37); SGPT/ALT 8 U/L (13-61); TOT PROT 6.7 g/dl (6.4-8.2)
[2020-01-29 11:45] LABS: INR 1.03 (0.83-1.09); PROTHROMBIN TIME (PATIENT) 12.6 SEC (9.7-13.0)
[2020-01-29 11:47] LABS: EPI CELLS 15 /uL (0-25.1); HYALINE CASTS 4 /uL (0-3.1); URINE APPEARANCE CLEAR; URINE BACTERIA 12 /uL (0-1359); URINE BILIRUBIN NEGATIVE (NEGATIVE); URINE COLOR DK YELLOW; URINE GLUCOSE (UA) NEGATIVE (NEGATIVE); URINE KETONE TRACE (NEGATIVE); URINE LEUK ESTERASE NEGATIVE (NEGATIVE); URINE NITRITE NEGATIVE (NEGATIVE); URINE PROTEIN 1+ (NEGATIVE); URINE WBC 10 /uL (0-25.8)
[2020-01-29 11:47] LABS: ACTIVATED PTT 31.9 SECONDS (25.2-36.5)
[2020-01-29 11:53] LABS: ALK PHOS 77 U/L (45-117); ANION GAP 2 MMOL/L (8-16)
[2020-01-29 12:05] LABS: SODIUM 162 mmol/L (136-145)
[2020-01-29] MEDS ORDERED: SODIUM CHLORIDE 1,000 ML IV STA (12:40)
[2020-01-29 13:12] LABS: URINE RBC 35.7 /uL (0-23.9)
[2020-01-30] MEDS ORDERED: DEXTROSE 5%-WATER 500 ML PVC-FREE INFUS.BAG IV SCH (10:00)
[2020-01-30] MEDS: SERTRALINE HCL 50 MG TABLET (FP) PO SCH (10:27)
[2020-01-30] MEDS: amLODIPine BESYLATE 5 MG TABLET (FP) PO SCH (10:27)
[2020-01-30] MEDS: PANTOPRAZOLE 40 MG TABLET PO SCH (10:27)
[2020-01-30] MEDS ORDERED: HEPARIN NA (PORCINE) 5,000 UNITS/ML 1ML VIAL ONE (10:28)
[2020-01-30] MEDS: HEPARIN NA (PORCINE) 5,000 UNITS/ML 1ML VIAL SQ SCH ×2 (10:36→21:09)
[2020-01-30 11:43] LABS: BASO % 0.5 % (0-2.0); EOS % 2.2 % (0-4.5); HEMATOCRIT 39.4 % (32.4-45.2); HEMOGLOBIN 12.6 GM/dL (10.7-15.3); MCH 29.5 pg (25.7-33.7); MCHC 31.9 g/dl (32.0-36.0); MEAN CELL VOLUME 92.5 fl (80-96); MEAN PLT VOLUME 9.1 fl (7.5-11.1); NEUT % 79.3 % (42.8-82.8); PLATELET COUNT 198 K/MM3 (134-434); RBC 4.26 M/mm3 (3.60-5.2); RDW 15.5 % (11.6-15.6); WHITE BLOOD COUNT 9.9 K/mm3 (4.0-10.0)
[2020-01-30 12:23] LABS: ALBUMIN 2.5 g/dl (3.4-5.0); BILIRUBIN,TOTAL 0.6 mg/dL (0.2-1); BLOOD UREA NITROGEN 12.6 mg/dL (7-18); CALCIUM 8.6 mg/dL (8.5-10.1); CREATININE 0.6 mg/dL (0.55-1.3); POTASSIUM 3.7 mmol/L (3.5-5.1); TOT PROT 6.7 g/dl (6.4-8.2)
[2020-01-30] MEDS ORDERED: CEFTRIAXONE 1 GM/50 ML BAG ONE (12:49)
[2020-01-30] MEDS: CEFTRIAXONE 1 GM in DEXTROSE 5%-WATER - 50 ML IVPB SCH (14:45)
[2020-01-30] MEDS ORDERED: DEXTROSE 5%-WATER - 1,000 ML IV SCH (17:00)
[2020-01-30] MEDS ORDERED: DEXTROSE 5%-WATER - 1,000 ML with POTASSIUM CHLORIDE 10 MEQ IV SCH ×2 (17:01→17:26)
[2020-01-30] MEDS: DEXTROSE 5%-WATER - 1,000 ML with POTASSIUM CHLORIDE 10 MEQ IV SCH (20:46)
[2020-01-31 00:39] VITALS: BMI 17.4
[2020-01-31 07:57] LABS: POTASSIUM 3.3 mmol/L (3.5-5.1)
[2020-01-31 08:12] LABS: ALBUMIN 2.4 g/dl (3.4-5.0); BILIRUBIN,TOTAL 0.6 mg/dL (0.2-1); BLOOD UREA NITROGEN 12.5 mg/dL (7-18); CALCIUM 8.6 mg/dL (8.5-10.1); CREATININE 0.7 mg/dL (0.55-1.3); TOT PROT 6.5 g/dl (6.4-8.2)
[2020-01-31 09:31] LABS: BASO % 0.7 % (0-2.0); EOS % 2.6 % (0-4.5); HEMATOCRIT 38.3 % (32.4-45.2); HEMOGLOBIN 12.6 GM/dL (10.7-15.3); LYMPH % 21.8 % (8-40); MCH 30.5 pg (25.7-33.7); MCHC 32.9 g/dl (32.0-36.0); MEAN CELL VOLUME 92.7 fl (80-96); MEAN PLT VOLUME 9.1 fl (7.5-11.1); MONO % 5.8 % (3.8-10.2); NEUT % 69.1 % (42.8-82.8); PLATELET COUNT 198 K/MM3 (134-434); RBC 4.14 M/mm3 (3.60-5.2); RDW 15.2 % (11.6-15.6); WHITE BLOOD COUNT 7.3 K/mm3 (4.0-10.0)
[2020-01-31] MEDS: SERTRALINE HCL 50 MG TABLET (FP) PO SCH (09:31)
[2020-01-31] MEDS: amLODIPine BESYLATE 5 MG TABLET (FP) PO SCH (09:31)
[2020-01-31] MEDS: PANTOPRAZOLE 40 MG TABLET PO SCH (09:31)
[2020-01-31] MEDS ORDERED: cefTRIAXone SODIUM 1 GM VIAL ONE (09:35)
[2020-01-31] MEDS ORDERED: DEXTROSE 5%-WATER - 50 ML IVPB ONE (09:36)
[2020-01-31] MEDS: HEPARIN NA (PORCINE) 5,000 UNITS/ML 1ML VIAL SQ SCH ×2 (09:53→21:18)
[2020-01-31] MEDS: DEXTROSE 5%-WATER - 1,000 ML with POTASSIUM CHLORIDE 10 MEQ IV SCH (09:53)
[2020-01-31] MEDS: CEFTRIAXONE 1 GM in DEXTROSE 5%-WATER - 50 ML IVPB SCH (09:53)
[2020-01-31] MEDS ORDERED: FLU VACCINE (FLULAVAL) PF 60 MCG/0.5 ML SYRINGE 2020-2021 IM ONE (10:00)
[2020-01-31] MEDS ORDERED: DEXTROSE 5%-WATER - 1,000 ML with POTASSIUM CHLORIDE 10 MEQ IV SCH (10:30)
[2020-01-31] MEDS ORDERED: POTASSIUM CHLORIDE 10 MEQ in DEXTROSE 5%-WATER - 1,000 ML IV SCH (11:00)
[2020-01-31] MEDS: KCL 10 MEQ IVPB 10 MEQ/100 ML INFUS.BAG IVPB SCH ×3 (11:28→16:07)
[2020-01-31] MEDS: POTASSIUM CHLORIDE 10 MEQ in DEXTROSE 5%-WATER - 1,000 ML IV SCH (14:46)
[2020-02-01] MEDS: POTASSIUM CHLORIDE 10 MEQ in DEXTROSE 5%-WATER - 1,000 ML IV SCH ×2 (00:55→05:20)
[2020-02-01 06:58] LABS: BASO % 0.7 % (0-2.0); EOS % 2.5 % (0-4.5); HEMATOCRIT 33.9 % (32.4-45.2); HEMOGLOBIN 11.6 GM/dL (10.7-15.3); LYMPH % 28.2 % (8-40); MCHC 34.3 g/dl (32.0-36.0); MEAN CELL VOLUME 90.3 fl (80-96); NEUT % 60.6 % (42.8-82.8); PLATELET COUNT 174 K/MM3 (134-434); RBC 3.76 M/mm3 (3.60-5.2); RDW 14.2 % (11.6-15.6); WHITE BLOOD COUNT 6.3 K/mm3 (4.0-10.0)
[2020-02-01 07:18] LABS: POTASSIUM 3.8 mmol/L (3.5-5.1)
[2020-02-01 07:25] LABS: CALCIUM 8.3 mg/dL (8.5-10.1)
[2020-02-01 07:26] LABS: ALBUMIN 2.2 g/dl (3.4-5.0); BLOOD UREA NITROGEN 6.8 mg/dL (7-18); MAGNESIUM 2.1 mg/dL (1.8-2.4)
[2020-02-01 07:27] LABS: BILIRUBIN,TOTAL 0.5 mg/dL (0.2-1)
[2020-02-01 07:29] LABS: CREATININE 0.5 mg/dL (0.55-1.3); PHOSPHOROUS 2.7 mg/dL (2.5-4.9)
[2020-02-01] MEDS ORDERED: DEXTROSE 5%-WATER - 50 ML IVPB ONE (10:01)
[2020-02-01] MEDS ORDERED: cefTRIAXone SODIUM 1 GM VIAL ONE (10:01)
[2020-02-01] MEDS: HEPARIN NA (PORCINE) 5,000 UNITS/ML 1ML VIAL SQ SCH ×2 (10:22→21:10)
[2020-02-01] MEDS: CEFTRIAXONE 1 GM in DEXTROSE 5%-WATER - 50 ML IVPB SCH (10:22)
[2020-02-01] MEDS: amLODIPine BESYLATE 5 MG TABLET (FP) PO SCH (10:36)
[2020-02-01] MEDS: PANTOPRAZOLE 40 MG TABLET PO SCH (10:36)
[2020-02-01] MEDS: SERTRALINE HCL 50 MG TABLET (FP) PO SCH (10:36)
[2020-02-01] MEDS: POTASSIUM CHLORIDE 20 MEQ in AMINO ACIDS 4.25%/D5W 1,000 ML IV SCH (17:22)
[2020-02-02] MEDS: POTASSIUM CHLORIDE 20 MEQ in AMINO ACIDS 4.25%/D5W 1,000 ML IV SCH ×2 (05:39→14:18)
[2020-02-02 07:16] LABS: BASO % 0.6 % (0-2.0); HEMATOCRIT 39.9 % (32.4-45.2); HEMOGLOBIN 13.4 GM/dL (10.7-15.3); LYMPH % 28.9 % (8-40); MCH 30.9 pg (25.7-33.7); MCHC 33.6 g/dl (32.0-36.0); MEAN CELL VOLUME 91.9 fl (80-96); MONO % 8.2 % (3.8-10.2); NEUT % 60.3 % (42.8-82.8); PLATELET COUNT 192 K/MM3 (134-434); RBC 4.34 M/mm3 (3.60-5.2); RDW 14.3 % (11.6-15.6); WHITE BLOOD COUNT 7.3 K/mm3 (4.0-10.0)
[2020-02-02 07:45] LABS: POTASSIUM 3.8 mmol/L (3.5-5.1)
[2020-02-02 07:48] LABS: CALCIUM 8.4 mg/dL (8.5-10.1)
[2020-02-02 07:49] LABS: ALBUMIN 2.3 g/dl (3.4-5.0); BLOOD UREA NITROGEN 11.3 mg/dL (7-18)
[2020-02-02 07:52] LABS: CREATININE 0.5 mg/dL (0.55-1.3)
[2020-02-02 07:53] LABS: BILIRUBIN,TOTAL 0.6 mg/dL (0.2-1); TOT PROT 6.6 g/dl (6.4-8.2)
[2020-02-02] MEDS: amLODIPine BESYLATE 5 MG TABLET (FP) PO SCH (09:12)
[2020-02-02] MEDS: PANTOPRAZOLE 40 MG TABLET PO SCH (09:12)
[2020-02-02] MEDS: SERTRALINE HCL 50 MG TABLET (FP) PO SCH (09:12)
[2020-02-02] MEDS: HEPARIN NA (PORCINE) 5,000 UNITS/ML 1ML VIAL SQ SCH ×2 (09:13→21:04)
[2020-02-03] MEDS: POTASSIUM CHLORIDE 20 MEQ in AMINO ACIDS 4.25%/D5W 1,000 ML IV SCH ×2 (02:57→14:39)
[2020-02-03 06:43] LABS: BASO % 0.3 % (0-2.0); EOS % 2.5 % (0-4.5); HEMATOCRIT 34.2 % (32.4-45.2); LYMPH % 19.2 % (8-40); MCH 27.3 pg (25.7-33.7); MCHC 32.2 g/dl (32.0-36.0); MEAN CELL VOLUME 84.8 fl (80-96); MEAN PLT VOLUME 7.6 fl (7.5-11.1); MONO % 14.5 % (3.8-10.2); NEUT % 63.5 % (42.8-82.8); PLATELET COUNT 195 K/MM3 (134-434); RBC 4.03 M/mm3 (3.60-5.2); RDW 14.5 % (11.6-15.6); WHITE BLOOD COUNT 4.3 K/mm3 (4.0-10.0)
[2020-02-03 07:03] LABS: POTASSIUM 4.8 mmol/L (3.5-5.1)
[2020-02-03 07:12] LABS: CALCIUM 8.5 mg/dL (8.5-10.1)
[2020-02-03 07:13] LABS: ALBUMIN 2.9 g/dl (3.4-5.0)
[2020-02-03 07:16] LABS: CREATININE 6.4 mg/dL (0.55-1.3)
[2020-02-03 07:17] LABS: BILIRUBIN,TOTAL 0.5 mg/dL (0.2-1)
[2020-02-03 07:21] LABS: BLOOD UREA NITROGEN 78.1 mg/dL (7-18)
[2020-02-03] MEDS: HEPARIN NA (PORCINE) 5,000 UNITS/ML 1ML VIAL SQ SCH ×2 (09:08→21:11)
[2020-02-03] MEDS: SERTRALINE HCL 50 MG TABLET (FP) PO SCH (11:12)
[2020-02-03] MEDS: amLODIPine BESYLATE 5 MG TABLET (FP) PO SCH (11:12)
[2020-02-03] MEDS: PANTOPRAZOLE 40 MG TABLET PO SCH (11:12)
[2020-02-03 12:10] LABS: BASO % 0.5 % (0-2.0); EOS % 1.9 % (0-4.5); HEMATOCRIT 35.8 % (32.4-45.2); HEMOGLOBIN 11.8 GM/dL (10.7-15.3); LYMPH % 26.7 % (8-40); MEAN CELL VOLUME 90.7 fl (80-96); MONO % 10.4 % (3.8-10.2); NEUT % 60.5 % (42.8-82.8); PLATELET COUNT 217 K/MM3 (134-434); RBC 3.95 M/mm3 (3.60-5.2); RDW 14.2 % (11.6-15.6)
[2020-02-03 12:34] LABS: POTASSIUM 3.6 mmol/L (3.5-5.1)
[2020-02-03 12:37] LABS: CALCIUM 8.4 mg/dL (8.5-10.1)
[2020-02-03 12:38] LABS: ALBUMIN 2.2 g/dl (3.4-5.0)
[2020-02-03 12:41] LABS: CREATININE 0.4 mg/dL (0.55-1.3)
[2020-02-03 12:43] LABS: BILIRUBIN,TOTAL 0.6 mg/dL (0.2-1); TOT PROT 6.3 g/dl (6.4-8.2)
[2020-02-03] MEDS: SCOPOLAMINE HYDROBROMIDE 1 PATCH PATCH.TD72 TD SCH (18:23)
[2020-02-03] MEDS ORDERED: PT OWN MED DRAWER 7, Y5N ONE (20:55)
[2020-02-04] MEDS: POTASSIUM CHLORIDE 20 MEQ in AMINO ACIDS 4.25%/D5W 1,000 ML IV SCH ×3 (01:57→15:35)
[2020-02-04] MEDS: amLODIPine BESYLATE 5 MG TABLET (FP) PO SCH (09:14)
[2020-02-04] MEDS: PANTOPRAZOLE 40 MG TABLET PO SCH (09:14)
[2020-02-04] MEDS: SERTRALINE HCL 50 MG TABLET (FP) PO SCH (09:14)
[2020-02-04] MEDS: HEPARIN NA (PORCINE) 5,000 UNITS/ML 1ML VIAL SQ SCH ×2 (09:16→21:46)
[2020-02-04] MEDS ORDERED: ACETAMINOPHEN 500 MG TABLET (FP) PO PRN (16:13)
[2020-02-04] MEDS: ACETAMINOPHEN 1000 MG/100 ML VIAL (NON FORMULARY) IVPB PRN (16:33)
[2020-02-05] MEDS: POTASSIUM CHLORIDE 20 MEQ in AMINO ACIDS 4.25%/D5W 1,000 ML IV SCH ×3 (06:13→21:40)
[2020-02-05 08:42] LABS: BLOOD UREA NITROGEN 17.9 mg/dL (7-18); CALCIUM 8.7 mg/dL (8.5-10.1)
[2020-02-05 08:44] LABS: CREATININE 0.4 mg/dL (0.55-1.3); PHOSPHOROUS 1.8 mg/dL (2.5-4.9)
[2020-02-05 08:46] LABS: BILIRUBIN,TOTAL 0.4 mg/dL (0.2-1); TOT PROT 5.8 g/dl (6.4-8.2)
[2020-02-05] MEDS: amLODIPine BESYLATE 5 MG TABLET (FP) PO SCH (11:09)
[2020-02-05] MEDS: PANTOPRAZOLE 40 MG TABLET PO SCH (11:10)
[2020-02-05] MEDS: SERTRALINE HCL 50 MG TABLET (FP) PO SCH (11:10)
[2020-02-05] MEDS: HEPARIN NA (PORCINE) 5,000 UNITS/ML 1ML VIAL SQ SCH ×2 (11:12→21:44)
[2020-02-06] MEDS: POTASSIUM CHLORIDE 20 MEQ in AMINO ACIDS 4.25%/D5W 1,000 ML IV SCH ×3 (02:19→15:11)
[2020-02-06] MEDS: FAT EMULSION/OLIVE/SOY/PHOSPHO 250 ML IV SCH (02:21)
[2020-02-06] MEDS: amLODIPine BESYLATE 5 MG TABLET (FP) PO SCH (11:44)
[2020-02-06] MEDS: PANTOPRAZOLE 40 MG TABLET PO SCH (11:44)
[2020-02-06] MEDS: SERTRALINE HCL 50 MG TABLET (FP) PO SCH (11:44)
[2020-02-06] MEDS ORDERED: SODIUM PHOSPHATE - 20 MM in DEXTROSE 5%-WATER - 250 ML IVPB ONE (13:55)
[2020-02-06] MEDS ORDERED: PT OWN MED DRAWER 7, Y5N ONE (15:36)
[2020-02-06] MEDS: SCOPOLAMINE HYDROBROMIDE 1 PATCH PATCH.TD72 TD SCH (17:31)
[2020-02-07] MEDS: FAT EMULSION/OLIVE/SOY/PHOSPHO 250 ML IV SCH ×2 (00:46→22:37)
[2020-02-07] MEDS: POTASSIUM CHLORIDE 20 MEQ in AMINO ACIDS 4.25%/D5W 1,000 ML IV SCH ×3 (01:52→13:45)
[2020-02-07 08:57] LABS: POTASSIUM 3.8 mmol/L (3.5-5.1)
[2020-02-07 09:10] LABS: ALBUMIN 2.2 g/dl (3.4-5.0); BLOOD UREA NITROGEN 17.9 mg/dL (7-18); CALCIUM 8.7 mg/dL (8.5-10.1)
[2020-02-07 09:11] LABS: MAGNESIUM 1.9 mg/dL (1.8-2.4)
[2020-02-07 09:13] LABS: CREATININE 0.4 mg/dL (0.55-1.3)
[2020-02-07 09:14] LABS: PHOSPHOROUS 2.8 mg/dL (2.5-4.9)
[2020-02-07 09:15] LABS: BILIRUBIN,TOTAL 0.3 mg/dL (0.2-1); TOT PROT 5.9 g/dl (6.4-8.2)
[2020-02-07] MEDS: PANTOPRAZOLE 40 MG TABLET PO SCH (09:41)
[2020-02-07] MEDS: amLODIPine BESYLATE 5 MG TABLET (FP) PO SCH (09:41)
[2020-02-07] MEDS: SERTRALINE HCL 50 MG TABLET (FP) PO SCH (09:41)
[2020-02-07] MEDS ORDERED: PT OWN MED DRAWER 7, Y5N ONE (22:30)
[2020-02-08] MEDS: POTASSIUM CHLORIDE 20 MEQ in AMINO ACIDS 4.25%/D5W 1,000 ML IV SCH (01:53)
[2020-02-08 07:32] LABS: CHOLESTEROL 127 mg/dL (50-200); TRIGLYCERIDES 109 mg/dL (0-150)
[2020-02-08 07:33] LABS: LDL CHOLESTEROL (ONLY SJRH) 78 mg/dL (5-100)
[2020-02-08 07:35] LABS: HDL CHOLESTEROL 40 mg/dL (40-60)
[2020-02-08] MEDS: ACETAMINOPHEN 1000 MG/100 ML VIAL (NON FORMULARY) IVPB PRN (10:59)
[2020-02-08] MEDS: SERTRALINE HCL 50 MG TABLET (FP) PO SCH (11:03)
[2020-02-08] MEDS: PANTOPRAZOLE 40 MG TABLET PO SCH (11:03)
[2020-02-08] MEDS: amLODIPine BESYLATE 5 MG TABLET (FP) PO SCH (11:03)
[2020-02-08] MEDS: FAT EMULSION/OLIVE/SOY/PHOSPHO 250 ML IV SCH (23:41)
[2020-02-09] MEDS: amLODIPine BESYLATE 5 MG TABLET (FP) PO SCH (09:39)
[2020-02-09] MEDS: PANTOPRAZOLE 40 MG TABLET PO SCH (09:39)
[2020-02-09] MEDS: SERTRALINE HCL 50 MG TABLET (FP) PO SCH (09:39)
[2020-02-09] MEDS: POTASSIUM CHLORIDE 20 MEQ in AMINO ACIDS 4.25%/D5W 1,000 ML IV SCH (12:19)
[2020-02-09] MEDS: ACETAMINOPHEN 1000 MG/100 ML VIAL (NON FORMULARY) IVPB PRN (12:20)
[2020-02-09] MEDS ORDERED: PT OWN MED DRAWER 7, Y5N ONE (18:01)
[2020-02-09] MEDS: SCOPOLAMINE HYDROBROMIDE 1 PATCH PATCH.TD72 TD SCH (18:03)
[2020-02-09] MEDS ORDERED: KETOROLAC TROMETHAMINE 30 MG/1 ML VIAL IVPUSH ONE (18:56)
[2020-02-09] MEDS ORDERED: METOCLOPRAMIDE HCL INJECTION 10 MG/2 ML VIAL IVPUSH ONE (18:56)
[2020-02-09] MEDS: FAT EMULSION/OLIVE/SOY/PHOSPHO 250 ML IV SCH (21:23)
[2020-02-10] MEDS: POTASSIUM CHLORIDE 20 MEQ in AMINO ACIDS 4.25%/D5W 1,000 ML IV SCH ×3 (00:31→22:51)
[2020-02-10 07:17] LABS: POTASSIUM 4.3 mmol/L (3.5-5.1)
[2020-02-10 07:24] LABS: ALBUMIN 2.5 g/dl (3.4-5.0)
[2020-02-10 07:25] LABS: BLOOD UREA NITROGEN 17.8 mg/dL (7-18)
[2020-02-10 07:28] LABS: CREATININE 0.4 mg/dL (0.55-1.3)
[2020-02-10 07:29] LABS: BILIRUBIN,TOTAL 0.5 mg/dL (0.2-1)
[2020-02-10] MEDS: amLODIPine BESYLATE 5 MG TABLET (FP) PO SCH (09:46)
[2020-02-10] MEDS: SERTRALINE HCL 50 MG TABLET (FP) PO SCH (09:46)
[2020-02-10] MEDS: PANTOPRAZOLE 40 MG TABLET PO SCH (09:46)
[2020-02-10 10:21] LABS: BASO % 1.1 % (0-2.0); EOS % 2.3 % (0-4.5); HEMATOCRIT 33.3 % (32.4-45.2); HEMOGLOBIN 11.3 GM/dL (10.7-15.3); LYMPH % 19.2 % (8-40); MCH 31.4 pg (25.7-33.7); MEAN CELL VOLUME 92.4 fl (80-96); MEAN PLT VOLUME 8.8 fl (7.5-11.1); MONO % 8.6 % (3.8-10.2); NEUT % 68.8 % (42.8-82.8); PLATELET COUNT 358 K/MM3 (134-434); RDW 15.8 % (11.6-15.6); WHITE BLOOD COUNT 8.8 K/mm3 (4.0-10.0)
[2020-02-10 12:12] LABS: PLATELET ESTIMATE NORMAL
[2020-02-10] MEDS ORDERED: PT OWN MED DRAWER 7, Y5N ONE ×2 (13:07→21:37)
[2020-02-10] MEDS: FAT EMULSION/OLIVE/SOY/PHOSPHO 250 ML IV SCH (22:50)
[2020-02-11] MEDS: amLODIPine BESYLATE 5 MG TABLET (FP) PO SCH (13:18)
[2020-02-11] MEDS: SERTRALINE HCL 50 MG TABLET (FP) PO SCH (13:18)
[2020-02-11] MEDS: PANTOPRAZOLE 40 MG TABLET PO SCH (13:18)
[2020-02-11] MEDS: POTASSIUM CHLORIDE 20 MEQ in AMINO ACIDS 4.25%/D5W 1,000 ML IV SCH (16:01)
[2020-02-11] MEDS: FAT EMULSION/OLIVE/SOY/PHOSPHO 250 ML IV SCH (21:38)
[2020-02-12] MEDS: POTASSIUM CHLORIDE 20 MEQ in AMINO ACIDS 4.25%/D5W 1,000 ML IV SCH ×2 (00:28→18:19)
[2020-02-12] MEDS: amLODIPine BESYLATE 5 MG TABLET (FP) PO SCH (10:55)
[2020-02-12] MEDS: SERTRALINE HCL 50 MG TABLET (FP) PO SCH (10:55)
[2020-02-12] MEDS: PANTOPRAZOLE 40 MG TABLET PO SCH (10:55)
[2020-02-12] MEDS ORDERED: PT OWN MED DRAWER 7, Y5N ONE (14:39)
[2020-02-12] MEDS: SCOPOLAMINE HYDROBROMIDE 1 PATCH PATCH.TD72 TD SCH (18:38)
[2020-02-12] MEDS: FAT EMULSION/OLIVE/SOY/PHOSPHO 250 ML IV SCH (22:19)
[2020-02-13] MEDS: POTASSIUM CHLORIDE 20 MEQ in AMINO ACIDS 4.25%/D5W 1,000 ML IV SCH ×2 (01:27→11:44)
[2020-02-13 08:59] LABS: BASO % 0.2 % (0-2.0); HEMATOCRIT 30.4 % (32.4-45.2); HEMOGLOBIN 9.9 GM/dL (10.7-15.3); MCH 29.9 pg (25.7-33.7); MCHC 32.7 g/dl (32.0-36.0); MEAN CELL VOLUME 91.6 fl (80-96); MEAN PLT VOLUME 7.7 fl (7.5-11.1); MONO % 6.6 % (3.8-10.2); NEUT % 88.2 % (42.8-82.8); PLATELET COUNT 351 K/MM3 (134-434); RBC 3.33 M/mm3 (3.60-5.2)
[2020-02-13 09:28] LABS: POTASSIUM 3.9 mmol/L (3.5-5.1)
[2020-02-13 09:30] LABS: CALCIUM 9.1 mg/dL (8.5-10.1)
[2020-02-13 09:31] LABS: ALBUMIN 2.5 g/dl (3.4-5.0); BLOOD UREA NITROGEN 18.7 mg/dL (7-18)
[2020-02-13 09:34] LABS: CREATININE 0.4 mg/dL (0.55-1.3)
[2020-02-13 09:36] LABS: BILIRUBIN,TOTAL 0.5 mg/dL (0.2-1); TOT PROT 6.2 g/dl (6.4-8.2)
[2020-02-13] MEDS: SERTRALINE HCL 50 MG TABLET (FP) PO SCH (11:44)
[2020-02-13] MEDS: PANTOPRAZOLE 40 MG TABLET PO SCH (11:44)
[2020-02-13] MEDS: amLODIPine BESYLATE 5 MG TABLET (FP) PO SCH (11:44)
[2020-02-13] MEDS ORDERED: ACETAMINOPHEN 650 MG/20.3 ML ORAL SOLUTION (CUPS) PEG PRN (11:51)
[2020-02-13] MEDS: SERTRALINE HCL 50 MG TABLET (FP) PEG SCH (14:39)
[2020-02-13] MEDS: amLODIPine BESYLATE 5 MG TABLET (FP) PEG SCH (14:39)
[2020-02-14 08:46] LABS: BASO % 0.1 % (0-2.0); EOS % 0.1 % (0-4.5); HEMATOCRIT 28.3 % (32.4-45.2); HEMOGLOBIN 9.5 GM/dL (10.7-15.3); LYMPH % 5.5 % (8-40); MCH 30.8 pg (25.7-33.7); MCHC 33.5 g/dl (32.0-36.0); MEAN PLT VOLUME 7.7 fl (7.5-11.1); MONO % 6.2 % (3.8-10.2); NEUT % 88.1 % (42.8-82.8); PLATELET COUNT 293 K/MM3 (134-434); RBC 3.08 M/mm3 (3.60-5.2); RDW 17.2 % (11.6-15.6); WHITE BLOOD COUNT 18.4 K/mm3 (4.0-10.0)
[2020-02-14 09:10] LABS: POTASSIUM 4.1 mmol/L (3.5-5.1)
[2020-02-14 09:23] LABS: CALCIUM 9.2 mg/dL (8.5-10.1)
[2020-02-14 09:24] LABS: ALBUMIN 2.2 g/dl (3.4-5.0)
[2020-02-14 09:25] LABS: BILIRUBIN,TOTAL 0.6 mg/dL (0.2-1); TOT PROT 5.9 g/dl (6.4-8.2)
[2020-02-14 09:27] LABS: CREATININE 0.4 mg/dL (0.55-1.3)
[2020-02-14] MEDS: amLODIPine BESYLATE 5 MG TABLET (FP) PEG SCH (10:49)
[2020-02-14] MEDS: SERTRALINE HCL 50 MG TABLET (FP) PEG SCH (10:49)
[2020-02-15 08:25] LABS: BASO % 0.3 % (0-2.0); EOS % 0.5 % (0-4.5); HEMATOCRIT 29.2 % (32.4-45.2); HEMOGLOBIN 9.6 GM/dL (10.7-15.3); LYMPH % 10.5 % (8-40); MCH 30.1 pg (25.7-33.7); MCHC 32.8 g/dl (32.0-36.0); MEAN CELL VOLUME 91.9 fl (80-96); MEAN PLT VOLUME 7.6 fl (7.5-11.1); MONO % 9.2 % (3.8-10.2); NEUT % 79.5 % (42.8-82.8); PLATELET COUNT 293 K/MM3 (134-434); RBC 3.17 M/mm3 (3.60-5.2); RDW 17.3 % (11.6-15.6); WHITE BLOOD COUNT 12.7 K/mm3 (4.0-10.0)
[2020-02-15 08:38] LABS: POTASSIUM 3.9 mmol/L (3.5-5.1)
[2020-02-15 08:41] LABS: ALBUMIN 2.1 g/dl (3.4-5.0); BLOOD UREA NITROGEN 10.1 mg/dL (7-18)
[2020-02-15 08:44] LABS: CREATININE 0.4 mg/dL (0.55-1.3)
[2020-02-15 08:45] LABS: BILIRUBIN,TOTAL 0.6 mg/dL (0.2-1); TOT PROT 5.9 g/dl (6.4-8.2)
[2020-02-15] MEDS: SERTRALINE HCL 50 MG TABLET (FP) PEG SCH (09:56)
[2020-02-15] MEDS: amLODIPine BESYLATE 5 MG TABLET (FP) PEG SCH (09:56)
[2020-02-15 11:08] LABS: MAGNESIUM 2.2 mg/dL (1.8-2.4)
[2020-02-15 11:11] LABS: PHOSPHOROUS 2.6 mg/dL (2.5-4.9)
[2020-02-15] MEDS ORDERED: PT OWN MED DRAWER 7, Y5N ONE (17:06)
[2020-02-15] MEDS: SCOPOLAMINE HYDROBROMIDE 1 PATCH PATCH.TD72 TD SCH (17:10)
[2020-02-16] MEDS: SERTRALINE HCL 50 MG TABLET (FP) PEG SCH (10:39)
[2020-02-16] MEDS: amLODIPine BESYLATE 5 MG TABLET (FP) PEG SCH (10:39)
[2020-02-17 08:21] LABS: BASO % 0.6 % (0-2.0); EOS % 1.9 % (0-4.5); HEMATOCRIT 30.2 % (32.4-45.2); HEMOGLOBIN 9.7 GM/dL (10.7-15.3); MCH 29.3 pg (25.7-33.7); MEAN CELL VOLUME 91.7 fl (80-96); MEAN PLT VOLUME 7.4 fl (7.5-11.1); MONO % 13.9 % (3.8-10.2); NEUT % 64.6 % (42.8-82.8); PLATELET COUNT 305 K/MM3 (134-434); RDW 16.5 % (11.6-15.6); WHITE BLOOD COUNT 8.5 K/mm3 (4.0-10.0)
[2020-02-17] MEDS: SERTRALINE HCL 50 MG TABLET (FP) PEG SCH (09:51)
[2020-02-17] MEDS: amLODIPine BESYLATE 5 MG TABLET (FP) PEG SCH (09:51)
[2020-02-18] MEDS: SERTRALINE HCL 50 MG TABLET (FP) PEG SCH (09:36)
[2020-02-18] MEDS: amLODIPine BESYLATE 5 MG TABLET (FP) PEG SCH (09:36)
[2020-02-18] MEDS ORDERED: PT OWN MED DRAWER 7, Y5N ONE (09:50)
[2020-02-18 11:21] VITALS: BP 120/74; PULSE 88; TEMP 98.2
== END 2020-02-18 14:20 | DRG 640 ==
LOC: JER 09:46 → JERBED 14:30 → J7W 01-30 20:16 → J8W 02-04 11:59
PROVIDERS: ADMIT Internal Medicine; ATTEND Internal Medicine
PROC: 0DH63UZ Insertion of Feeding Device into Stomach, Percutaneous Approach (ICD-10-PCS; principal; 2020-02-12)
PROC: BD12YZZ Fluoroscopy of Stomach using Other Contrast (ICD-10-PCS; 2020-02-12)
DX: E87.0 Hyperosmolality and hypernatremia (principal); E43 Unspecified severe protein-calorie malnutrition; R64 Cachexia; Z68.1 Body mass index [BMI] 19.9 or less, adult; R62.7 Adult failure to thrive; E05.00 Thyrotoxicosis with diffuse goiter without thyrotoxic crisis or storm; E86.0 Dehydration; I10 Essential (primary) hypertension; K57.90 Diverticulosis of intestine, part unspecified, without perforation or abscess without bleeding; F02.80 Dementia in other diseases classified elsewhere, unspecified severity, without behavioral disturbance, psychotic disturbance, mood disturbance, and anxiety; G30.9 Alzheimer's disease, unspecified; D72.829 Elevated white blood cell count, unspecified; E87.6 Hypokalemia
CPT/HCPCS: 36415; 49440; 70450-TC; 71045-TC-FY; 74018-TC-FY; 80053; 80061; 81003; 82550; 82962; 83605; 83690; 83721; 83735; 83880; 84100; 84443; 84484; 85025; 85610; 85730; 87086; 93005; 93010; 97116-GP; 97161-GP; 99285-25; C9803; G0008; J0131; J1644; Q2036; U0003

== ENCOUNTER 2020-04-05 08:13 | Emergency (ER) | payer OTHER ==
[2020-04-05 08:22] VITALS: TEMP 100; BMI 18.3
[2020-04-05] MEDS ORDERED: SODIUM CHLORIDE 1,361 ML IV ONE (09:29)
[2020-04-05 10:01] LABS: BASO % 0.2 % (0-2.0); EOS % 0.2 % (0-4.5); HEMATOCRIT 29.2 % (32.4-45.2); HEMOGLOBIN 9.1 GM/dL (10.7-15.3); LYMPH % 11.4 % (8-40); MCH 28.1 pg (25.7-33.7); MCHC 31.3 g/dl (32.0-36.0); MEAN CELL VOLUME 89.9 fl (80-96); MEAN PLT VOLUME 7.7 fl (7.5-11.1); MONO % 11.9 % (3.8-10.2); NEUT % 76.3 % (42.8-82.8); PLATELET COUNT 545 K/MM3 (134-434); RBC 3.25 M/mm3 (3.60-5.2); RDW 18.5 % (11.6-15.6); WHITE BLOOD COUNT 13.3 K/mm3 (4.0-10.0)
[2020-04-05 10:08] LABS: INR 1.25 (0.83-1.09)
[2020-04-05 10:10] LABS: ACTIVATED PTT 32.2 SECONDS (25.2-36.5)
[2020-04-05 10:22] LABS: ALBUMIN 1.4 g/dl (3.4-5.0); BLOOD UREA NITROGEN 11.4 mg/dL (7-18); CALCIUM 8.2 mg/dL (8.5-10.1)
[2020-04-05 10:25] LABS: CREATININE 0.4 mg/dL (0.55-1.3)
[2020-04-05 10:27] LABS: BILIRUBIN,TOTAL 0.5 mg/dL (0.2-1); TOT PROT 6.7 g/dl (6.4-8.2)
[2020-04-05 10:40] LABS: EPI CELLS >36 /uL (0-25.1); HYALINE CASTS 3 /uL (0-3.1); PH,URINE 8.5 (5.0-8.0); URINE APPEARANCE CLOUDY; URINE BACTERIA 409 /uL (0-1359); URINE BILIRUBIN NEGATIVE (NEGATIVE); URINE COLOR YELLOW; URINE GLUCOSE (UA) NEGATIVE (NEGATIVE); URINE KETONE NEGATIVE (NEGATIVE); URINE LEUK ESTERASE TRACE (NEGATIVE); URINE NITRITE NEGATIVE (NEGATIVE); URINE PROTEIN 1+ (NEGATIVE); URINE UROBILINOGEN 4.0 E.U/dl mg/dL (0.2-1.0); URINE WBC 16 /uL (0-25.8)
[2020-04-05 11:11] LABS: URINE RBC 113.2 /uL (0-23.9)
[2020-04-05 11:14] LABS: YEAST NON SEEN (NEGATIVE)
[2020-04-05] MEDS ORDERED: CEFTRIAXONE 1 GM in DEXTROSE 5%-WATER - 100 ML IVPB ONE (12:42)
[2020-04-05] MEDS ORDERED: cefTRIAXone SODIUM 1 GM VIAL ONE (14:28)
[2020-04-05 16:06] VITALS: BP 145/73; PULSE 87
== END 2020-04-05 16:06 ==
LOC: JER 08:13
PROC: 3E03329 Introduction of Other Anti-infective into Peripheral Vein, Percutaneous Approach (ICD-10-PCS; principal; 2020-04-05)
PROC: 3E0337Z Introduction of Electrolytic and Water Balance Substance into Peripheral Vein, Percutaneous Approach (ICD-10-PCS; 2020-04-05)
DX: K94.23 Gastrostomy malfunction (principal); N39.0 Urinary tract infection, site not specified
CPT/HCPCS: 36415; 71045-TC-FY; 74018-TC-FY; 80053; 81003; 83605; 84484; 85025; 85610; 85730; 87040; 87086; 93005; 93010; 99285-25

== ENCOUNTER 2020-04-28 12:41 | Inpatient (IN) | payer OTHER ==
[2020-04-28] MEDS ORDERED: LACTATED RINGERS SOLUTION 1000 ML INFUS.BAG IV ONE (13:38)
[2020-04-28] MEDS ORDERED: PANTOPRAZOLE SODIUM 40 MG VIAL IVPUSH ONE (13:56)
[2020-04-28] MEDS ORDERED: PANTOPRAZOLE SODIUM 40 MG VIAL ONE (14:23)
[2020-04-28 14:32] LABS: BASO % 0.2 % (0-2.0); EOS % 0.1 % (0-4.5); HEMATOCRIT 27.2 % (32.4-45.2); HEMOGLOBIN 8.7 GM/dL (10.7-15.3); LYMPH % 11.1 % (8-40); MCH 28.7 pg (25.7-33.7); MCHC 32.1 g/dl (32.0-36.0); MEAN CELL VOLUME 89.3 fl (80-96); MEAN PLT VOLUME 7.5 fl (7.5-11.1); NEUT % 79.6 % (42.8-82.8); PLATELET COUNT 324 K/MM3 (134-434); RBC 3.05 M/mm3 (3.60-5.2); RDW 19.6 % (11.6-15.6); WHITE BLOOD COUNT 15.4 K/mm3 (4.0-10.0)
[2020-04-28 14:40] LABS: INR 1.13 (0.83-1.09); PROTHROMBIN TIME (PATIENT) 13.8 SEC (9.7-13.0)
[2020-04-28 14:43] LABS: ACTIVATED PTT 29.7 SECONDS (25.2-36.5)
[2020-04-28 14:55] LABS: POTASSIUM 4.1 mmol/L (3.5-5.1)
[2020-04-28 14:56] LABS: CALCIUM 8.7 mg/dL (8.5-10.1)
[2020-04-28 14:57] LABS: ALBUMIN 2.1 g/dl (3.4-5.0); BLOOD UREA NITROGEN 23.9 mg/dL (7-18)
[2020-04-28 15:00] LABS: CREATININE 0.6 mg/dL (0.55-1.3)
[2020-04-28 15:02] LABS: BILIRUBIN,TOTAL 0.2 mg/dL (0.2-1); TOT PROT 6.8 g/dl (6.4-8.2)
[2020-04-28 18:40] LABS: URINE APPEARANCE Clear; URINE BILIRUBIN Negative (NEGATIVE); URINE COLOR Yellow; URINE GLUCOSE (UA) Negative (NEGATIVE); URINE KETONE Negative (NEGATIVE); URINE LEUK ESTERASE Trace (NEGATIVE); URINE NITRITE Negative (NEGATIVE); URINE PROTEIN Negative (NEGATIVE); URINE UROBILINOGEN 0.2 mg/dL (0.2-1.0)
[2020-04-28 20:03] LABS: BASO % 1.3 % (0-2.0); EOS % 0.1 % (0-4.5); HEMATOCRIT 25.4 % (32.4-45.2); LYMPH % 16.6 % (8-40); MCH 28.2 pg (25.7-33.7); MCHC 31.6 g/dl (32.0-36.0); MEAN CELL VOLUME 89.3 fl (80-96); MEAN PLT VOLUME 7.9 fl (7.5-11.1); MONO % 6.2 % (3.8-10.2); NEUT % 75.8 % (42.8-82.8); PLATELET COUNT 297 K/MM3 (134-434); RBC 2.85 M/mm3 (3.60-5.2); RDW 19.9 % (11.6-15.6)
[2020-04-28 20:04] LABS: EPI CELLS 0-3 /uL (0-25.1); URINE BACTERIA FEW /uL (0-1359); URINE RBC 0-3 /uL (0-23.9)
[2020-04-28 20:05] LABS: YEAST FEW (NEGATIVE)
[2020-04-28] MEDS: SODIUM CHLORIDE 1,000 ML IV SCH (22:23)
[2020-04-28 22:25] LABS: ANISOCYTOSIS 1+; MACROCYTOSIS 1+; PLATELET ESTIMATE NORMAL
[2020-04-28] MEDS ORDERED: VANCOMYCIN 1 GM in D5W (PRE-DOCKED) 1,000 MG/250 ML IVPB ONE (22:29)
[2020-04-28] MEDS ORDERED: CLINDAMYCIN 600MG PREMIX IVPB 600 MG/50 ML BAG IVPB ONE (22:41)
[2020-04-28] MEDS: PANTOPRAZOLE SODIUM 80 MG in SODIUM CHLORIDE 100 ML IVPB SCH (23:45)
[2020-04-29] MEDS ORDERED: VANCOMYCIN 1 GRAM (PRE-DOCKED) 1,000 MG/250 ML BAG IVPB ONE ×2 (01:20→10:00)
[2020-04-29] MEDS ORDERED: CLINDAMYCIN 600MG PREMIX IVPB 600 MG/50 ML BAG IVPB ONE (01:20)
[2020-04-29 02:15] LABS: HEMATOCRIT 24.9 % (32.4-45.2); HEMOGLOBIN 7.9 GM/dL (10.7-15.3); MCH 28.7 pg (25.7-33.7); MCHC 31.7 g/dl (32.0-36.0); MEAN CELL VOLUME 90.6 fl (80-96); MEAN PLT VOLUME 7.9 fl (7.5-11.1); PLATELET COUNT 268 K/MM3 (134-434); RBC 2.75 M/mm3 (3.60-5.2); RDW 20.1 % (11.6-15.6); WHITE BLOOD COUNT 11.6 K/mm3 (4.0-10.0)
[2020-04-29 02:38] LABS: POTASSIUM 4.2 mmol/L (3.5-5.1)
[2020-04-29 02:41] LABS: CALCIUM 8.8 mg/dL (8.5-10.1)
[2020-04-29 02:42] LABS: BLOOD UREA NITROGEN 16.8 mg/dL (7-18)
[2020-04-29 02:45] LABS: CREATININE 0.4 mg/dL (0.55-1.3)
[2020-04-29] MEDS ORDERED: VANCOMYCIN 1 GM in D5W (PRE-DOCKED) 1,000 MG/250 ML IVPB SCH (10:00)
[2020-04-29] MEDS ORDERED: ACETAMINOPHEN 325 MG TABLET (FP) PO PRN (11:10)
[2020-04-29] MEDS: PANTOPRAZOLE SODIUM 80 MG in SODIUM CHLORIDE 100 ML IVPB SCH ×3 (12:03→18:20)
[2020-04-29 12:04] LABS: POTASSIUM 3.7 mmol/L (3.5-5.1)
[2020-04-29 12:07] LABS: BLOOD UREA NITROGEN 13.9 mg/dL (7-18); CALCIUM 8.4 mg/dL (8.5-10.1)
[2020-04-29 12:09] LABS: CREATININE 0.4 mg/dL (0.55-1.3)
[2020-04-29 12:13] LABS: IRON SERUM 16 ug/dL (50-175)
[2020-04-29] MEDS: COLLAGENASE CLOSTRIDIUM HIST. 30 GRAMS TUBE TP SCH (12:13)
[2020-04-29 12:16] LABS: TOTAL IRON BINDING CAPACITY 182 ug/dL (250-450)
[2020-04-29] MEDS: SERTRALINE HCL 50 MG TABLET (FP) GT SCH (12:22)
[2020-04-29] MEDS ORDERED: FERRIC CARBOXYMALTOSE 750 MG in SODIUM CHLORIDE 250 ML IVPB ONE (18:21)
[2020-04-29] MEDS: FERROUS SO4 300 MG/5 ML ORAL SOLN UNIT DOSE CUPS GT SCH (19:02)
[2020-04-29] MEDS: SODIUM CHLORIDE 1,000 ML IV SCH (23:21)
[2020-04-30] MEDS: PANTOPRAZOLE SODIUM 80 MG in SODIUM CHLORIDE 100 ML IVPB SCH ×3 (02:33→22:49)
[2020-04-30 08:21] LABS: BASO % 0.7 % (0-2.0); EOS % 2.5 % (0-4.5); HEMATOCRIT 19.2 % (32.4-45.2); LYMPH % 23.4 % (8-40); MCH 29.4 pg (25.7-33.7); MCHC 33.1 g/dl (32.0-36.0); MEAN CELL VOLUME 88.9 fl (80-96); MONO % 8.7 % (3.8-10.2); NEUT % 64.7 % (42.8-82.8); PLATELET COUNT 216 K/MM3 (134-434); RBC 2.16 M/mm3 (3.60-5.2); RDW 19.6 % (11.6-15.6); WHITE BLOOD COUNT 6.6 K/mm3 (4.0-10.0)
[2020-04-30 08:40] LABS: POTASSIUM 3.7 mmol/L (3.5-5.1)
[2020-04-30 08:46] LABS: ALBUMIN 1.7 g/dl (3.4-5.0); BLOOD UREA NITROGEN 11.5 mg/dL (7-18); CALCIUM 8.2 mg/dL (8.5-10.1)
[2020-04-30 08:49] LABS: BILIRUBIN,TOTAL 0.2 mg/dL (0.2-1); TOT PROT 5.5 g/dl (6.4-8.2)
[2020-04-30 08:50] LABS: CREATININE 0.3 mg/dL (0.55-1.3)
[2020-04-30 10:40] LABS: HEMOGLOBIN 6.4 GM/dL (10.7-15.3)
[2020-04-30] MEDS ORDERED: PT OWN MED DRAWER 7, Y5N ONE (11:58)
[2020-04-30] MEDS: FERROUS SO4 300 MG/5 ML ORAL SOLN UNIT DOSE CUPS GT SCH (12:03)
[2020-04-30] MEDS: SERTRALINE HCL 50 MG TABLET (FP) GT SCH (12:03)
[2020-04-30] MEDS: COLLAGENASE CLOSTRIDIUM HIST. 30 GRAMS TUBE TP SCH (12:03)
[2020-04-30] MEDS: ACETAMINOPHEN 650 MG/20.3 ML ORAL SOLUTION (CUPS) GT PRN (12:03)
[2020-04-30 12:42] VITALS: BMI 17.9
[2020-04-30] MEDS: SODIUM CHLORIDE 1,000 ML IV SCH ×2 (13:13→22:35)
[2020-04-30] MEDS: AMINO ACIDS/PROTEIN HYDROLYS 30 ML LIQUID.PKT GT SCH (18:47)
[2020-05-01 09:04] LABS: BASO % 0.5 % (0-2.0); EOS % 2.8 % (0-4.5); HEMATOCRIT 27.2 % (32.4-45.2); HEMOGLOBIN 9.1 GM/dL (10.7-15.3); LYMPH % 17.2 % (8-40); MCH 30.2 pg (25.7-33.7); MCHC 33.6 g/dl (32.0-36.0); MEAN CELL VOLUME 89.8 fl (80-96); MEAN PLT VOLUME 7.7 fl (7.5-11.1); MONO % 8.7 % (3.8-10.2); NEUT % 70.8 % (42.8-82.8); PLATELET COUNT 251 K/MM3 (134-434); RBC 3.03 M/mm3 (3.60-5.2); RDW 17.2 % (11.6-15.6); WHITE BLOOD COUNT 10.7 K/mm3 (4.0-10.0)
[2020-05-01] MEDS ORDERED: PT OWN MED DRAWER 7, Y5N ONE (12:01)
[2020-05-01] MEDS: COLLAGENASE CLOSTRIDIUM HIST. 30 GRAMS TUBE TP SCH (12:08)
[2020-05-01] MEDS: PANTOPRAZOLE SODIUM 80 MG in SODIUM CHLORIDE 100 ML IVPB SCH (12:09)
[2020-05-01] MEDS: AMINO ACIDS/PROTEIN HYDROLYS 30 ML LIQUID.PKT GT SCH ×2 (12:09→18:42)
[2020-05-01] MEDS: SERTRALINE HCL 50 MG TABLET (FP) GT SCH (12:09)
[2020-05-01] MEDS: FERROUS SO4 300 MG/5 ML ORAL SOLN UNIT DOSE CUPS GT SCH (12:09)
[2020-05-01] MEDS: DEXTROSE 5%-NORMAL SALINE 1,000 ML IV SCH (18:42)
[2020-05-02] MEDS: DEXTROSE 5%-NORMAL SALINE 1,000 ML IV SCH (06:07)
[2020-05-02] MEDS ORDERED: PT OWN MED DRAWER 7, Y5N ONE (09:07)
[2020-05-02] MEDS: FERROUS SO4 300 MG/5 ML ORAL SOLN UNIT DOSE CUPS GT SCH (09:16)
[2020-05-02] MEDS: AMINO ACIDS/PROTEIN HYDROLYS 30 ML LIQUID.PKT GT SCH ×2 (09:16→17:47)
[2020-05-02] MEDS: SERTRALINE HCL 50 MG TABLET (FP) GT SCH (09:16)
[2020-05-02] MEDS: FAMOTIDINE 40 MG/5 ML ORAL SUSPENSION PEG SCH (09:35)
[2020-05-02] MEDS: COLLAGENASE CLOSTRIDIUM HIST. 30 GRAMS TUBE TP SCH (09:38)
[2020-05-02 10:49] LABS: BASO % 0.3 % (0-2.0); HEMOGLOBIN 8.3 GM/dL (10.7-15.3); MCH 29.3 pg (25.7-33.7); MCHC 32.1 g/dl (32.0-36.0); MEAN CELL VOLUME 91.3 fl (80-96); MEAN PLT VOLUME 8.3 fl (7.5-11.1); MONO % 6.2 % (3.8-10.2); NEUT % 86.5 % (42.8-82.8); PLATELET COUNT 236 K/MM3 (134-434); RBC 2.85 M/mm3 (3.60-5.2); RDW 17.2 % (11.6-15.6); WHITE BLOOD COUNT 18.9 K/mm3 (4.0-10.0)
[2020-05-02] MEDS: ACETAMINOPHEN 650 MG/20.3 ML ORAL SOLUTION (CUPS) GT PRN ×2 (11:42→23:28)
[2020-05-02 16:47] LABS: EPI CELLS 15 /uL (0-25.1); HYALINE CASTS 15 /uL (0-3.1); PH,URINE 5.5 (5.0-8.0); URINE APPEARANCE CLOUDY; URINE BACTERIA >9,000 /uL (0-1359); URINE BILIRUBIN NEGATIVE (NEGATIVE); URINE COLOR DK YELLOW; URINE GLUCOSE (UA) NEGATIVE (NEGATIVE); URINE KETONE NEGATIVE (NEGATIVE); URINE LEUK ESTERASE 2+ (NEGATIVE); URINE NITRITE POSITIVE (NEGATIVE); URINE PROTEIN TRACE (NEGATIVE); URINE RBC 19 /uL (0-23.9); URINE UROBILINOGEN 0.2 mg/dL (0.2-1.0); URINE WBC 285 /uL (0-25.8)
[2020-05-03] MEDS ORDERED: PT OWN MED DRAWER 7, Y5N ONE (09:23)
[2020-05-03] MEDS: SERTRALINE HCL 50 MG TABLET (FP) GT SCH (09:41)
[2020-05-03] MEDS: FERROUS SO4 300 MG/5 ML ORAL SOLN UNIT DOSE CUPS GT SCH (09:41)
[2020-05-03] MEDS: AMINO ACIDS/PROTEIN HYDROLYS 30 ML LIQUID.PKT GT SCH ×2 (09:41→17:07)
[2020-05-03] MEDS: COLLAGENASE CLOSTRIDIUM HIST. 30 GRAMS TUBE TP SCH (09:41)
[2020-05-03 10:09] LABS: HEMOGLOBIN 8.7 GM/dL (10.7-15.3); MCH 29.6 pg (25.7-33.7); MCHC 32.3 g/dl (32.0-36.0); MEAN CELL VOLUME 91.5 fl (80-96); MEAN PLT VOLUME 8.4 fl (7.5-11.1); PLATELET COUNT 260 K/MM3 (134-434); RBC 2.95 M/mm3 (3.60-5.2); RDW 17.6 % (11.6-15.6); WHITE BLOOD COUNT 28.2 K/mm3 (4.0-10.0)
[2020-05-03 10:10] LABS: BASO % 0.2 % (0-2.0); EOS % 0.6 % (0-4.5); HEMOGLOBIN 8.7 GM/dL (10.7-15.3); LYMPH % 4.7 % (8-40); MCH 29.3 pg (25.7-33.7); MEAN CELL VOLUME 91.6 fl (80-96); MEAN PLT VOLUME 8.3 fl (7.5-11.1); MONO % 5.1 % (3.8-10.2); NEUT % 89.4 % (42.8-82.8); PLATELET COUNT 259 K/MM3 (134-434); RBC 2.95 M/mm3 (3.60-5.2); RDW 17.6 % (11.6-15.6); WHITE BLOOD COUNT 29.1 K/mm3 (4.0-10.0)
[2020-05-03 10:24] LABS: ALBUMIN 1.7 g/dl (3.4-5.0); CALCIUM 8.1 mg/dL (8.5-10.1)
[2020-05-03 10:27] LABS: CREATININE 0.3 mg/dL (0.55-1.3)
[2020-05-03 10:29] LABS: BILIRUBIN,TOTAL 0.3 mg/dL (0.2-1); TOT PROT 5.8 g/dl (6.4-8.2)
[2020-05-03 10:32] LABS: BLOOD UREA NITROGEN 8.5 mg/dL (7-18)
[2020-05-03 11:24] LABS: POTASSIUM 2.8 mmol/L (3.5-5.1)
[2020-05-03 11:41] LABS: ANISOCYTOSIS 1+; PLATELET ESTIMATE NORMAL
[2020-05-03] MEDS ORDERED: DEXTROSE 5%-WATER 100 ML IVPB ONE ×2 (13:13→17:26)
[2020-05-03] MEDS ORDERED: CEFEPIME HCL 1 GM VIAL (RESTRICTED TO ID) ONE ×2 (13:13→17:26)
[2020-05-03] MEDS: CEFEPIME 1 GM in DEXTROSE 5%-WATER 100 ML IVPB SCH ×2 (13:26→17:43)
[2020-05-03] MEDS: KCL 10 MEQ IVPB 10 MEQ/100 ML INFUS.BAG IVPB SCH ×2 (13:26→17:07)
[2020-05-03] MEDS: FAMOTIDINE 40 MG/5 ML ORAL SUSPENSION PEG SCH (13:27)
[2020-05-03] MEDS: VANCOMYCIN 1 GRAM (PRE-DOCKED) 1,000 MG/250 ML BAG IVPB SCH ×2 (13:27→22:19)
[2020-05-03 16:52] LABS: CALCIUM 7.9 mg/dL (8.5-10.1)
[2020-05-03 16:53] LABS: ALBUMIN 1.8 g/dl (3.4-5.0); BLOOD UREA NITROGEN 10.2 mg/dL (7-18); MAGNESIUM 1.8 mg/dL (1.8-2.4)
[2020-05-03 16:56] LABS: CREATININE 0.4 mg/dL (0.55-1.3)
[2020-05-03 16:57] LABS: BILIRUBIN,TOTAL 0.3 mg/dL (0.2-1)
[2020-05-03] MEDS: ACETAMINOPHEN 650 MG/20.3 ML ORAL SOLUTION (CUPS) GT PRN (23:52)
[2020-05-04] MEDS ORDERED: DEXTROSE 5%-WATER 100 ML IVPB ONE ×2 (00:27→08:48)
[2020-05-04] MEDS ORDERED: CEFEPIME HCL 1 GM VIAL (RESTRICTED TO ID) ONE ×2 (00:27→08:48)
[2020-05-04] MEDS: CEFEPIME 1 GM in DEXTROSE 5%-WATER 100 ML IVPB SCH ×2 (01:59→09:00)
[2020-05-04] MEDS ORDERED: PT OWN MED DRAWER 7, Y5N ONE (08:47)
[2020-05-04] MEDS: AMINO ACIDS/PROTEIN HYDROLYS 30 ML LIQUID.PKT GT SCH (08:58)
[2020-05-04] MEDS: FERROUS SO4 300 MG/5 ML ORAL SOLN UNIT DOSE CUPS GT SCH (09:00)
[2020-05-04] MEDS: COLLAGENASE CLOSTRIDIUM HIST. 30 GRAMS TUBE TP SCH (09:00)
[2020-05-04] MEDS: SERTRALINE HCL 50 MG TABLET (FP) GT SCH (09:00)
[2020-05-04] MEDS: FAMOTIDINE 40 MG/5 ML ORAL SUSPENSION PEG SCH (09:18)
[2020-05-04 11:00] LABS: BASO % 0.1 % (0-2.0); HEMOGLOBIN 8.4 GM/dL (10.7-15.3); LYMPH % 6.4 % (8-40); MCH 29.2 pg (25.7-33.7); MCHC 32.4 g/dl (32.0-36.0); MEAN PLT VOLUME 7.5 fl (7.5-11.1); MONO % 6.3 % (3.8-10.2); NEUT % 86.2 % (42.8-82.8); PLATELET COUNT 262 K/MM3 (134-434); RBC 2.89 M/mm3 (3.60-5.2); RDW 18.1 % (11.6-15.6); WHITE BLOOD COUNT 23.8 K/mm3 (4.0-10.0)
[2020-05-04 11:18] LABS: ALBUMIN 1.5 g/dl (3.4-5.0); BLOOD UREA NITROGEN 10.8 mg/dL (7-18); CALCIUM 7.8 mg/dL (8.5-10.1)
[2020-05-04 11:21] LABS: CREATININE 0.3 mg/dL (0.55-1.3)
[2020-05-04 11:23] LABS: BILIRUBIN,TOTAL 0.3 mg/dL (0.2-1); TOT PROT 5.4 g/dl (6.4-8.2)
[2020-05-04 11:32] LABS: POTASSIUM 2.8 mmol/L (3.5-5.1)
[2020-05-04] MEDS: VANCOMYCIN 1 GRAM (PRE-DOCKED) 1,000 MG/250 ML BAG IVPB SCH (12:26)
[2020-05-04] MEDS: KCL 10 MEQ IVPB 10 MEQ/100 ML INFUS.BAG IVPB SCH ×3 (13:26→17:34)
[2020-05-04] MEDS: POTASSIUM CHLORIDE ORAL LIQUID 20 MEQ/15 ML PO SCH ×2 (13:26→22:02)
[2020-05-04 13:47] LABS: ANISOCYTOSIS 0; MACROCYTOSIS 0; PLATELET ESTIMATE NORMAL
[2020-05-04] MEDS ORDERED: DEXTROSE 5%-WATER - 50 ML IVPB ONE (17:44)
[2020-05-04] MEDS ORDERED: cefTRIAXone SODIUM 1 GM VIAL ONE (17:44)
[2020-05-04] MEDS: CEFTRIAXONE 1 GM in DEXTROSE 5%-WATER - 50 ML IVPB SCH (18:36)
[2020-05-04] MEDS: VANCOMYCIN 250 MG/5 ML ORAL SOLUTION PO SCH (19:10)
[2020-05-05] MEDS: VANCOMYCIN 250 MG/5 ML ORAL SOLUTION PO SCH ×4 (00:53→17:34)
[2020-05-05] MEDS: ACETAMINOPHEN 650 MG/20.3 ML ORAL SOLUTION (CUPS) GT PRN (03:00)
[2020-05-05 09:42] LABS: HEMOGLOBIN 9.1 GM/dL (10.7-15.3); MCH 29.7 pg (25.7-33.7); MCHC 32.4 g/dl (32.0-36.0); MEAN CELL VOLUME 91.5 fl (80-96); MEAN PLT VOLUME 8.1 fl (7.5-11.1); PLATELET COUNT 300 K/MM3 (134-434); RBC 3.06 M/mm3 (3.60-5.2); RDW 18.8 % (11.6-15.6); WHITE BLOOD COUNT 19.3 K/mm3 (4.0-10.0)
[2020-05-05] MEDS ORDERED: cefTRIAXone SODIUM 1 GM VIAL ONE (09:57)
[2020-05-05] MEDS ORDERED: DEXTROSE 5%-WATER - 50 ML IVPB ONE (09:57)
[2020-05-05] MEDS ORDERED: PT OWN MED DRAWER 7, Y5N ONE (09:57)
[2020-05-05 09:58] LABS: POTASSIUM 3.9 mmol/L (3.5-5.1)
[2020-05-05] MEDS: AMINO ACIDS/PROTEIN HYDROLYS 30 ML LIQUID.PKT GT SCH (10:24)
[2020-05-05 10:25] LABS: ALBUMIN 1.6 g/dl (3.4-5.0); BLOOD UREA NITROGEN 8.4 mg/dL (7-18)
[2020-05-05] MEDS: CEFTRIAXONE 1 GM in DEXTROSE 5%-WATER - 50 ML IVPB SCH (10:25)
[2020-05-05] MEDS: SERTRALINE HCL 50 MG TABLET (FP) GT SCH (10:25)
[2020-05-05] MEDS: COLLAGENASE CLOSTRIDIUM HIST. 30 GRAMS TUBE TP SCH (10:25)
[2020-05-05] MEDS: FAMOTIDINE 40 MG/5 ML ORAL SUSPENSION PEG SCH (10:25)
[2020-05-05] MEDS: POTASSIUM CHLORIDE ORAL LIQUID 20 MEQ/15 ML PO SCH (10:25)
[2020-05-05] MEDS: FERROUS SO4 300 MG/5 ML ORAL SOLN UNIT DOSE CUPS GT SCH (10:25)
[2020-05-05 10:28] LABS: CREATININE 0.3 mg/dL (0.55-1.3)
[2020-05-05 10:29] LABS: BILIRUBIN,TOTAL 0.8 mg/dL (0.2-1); TOT PROT 5.7 g/dl (6.4-8.2)
[2020-05-06] MEDS: VANCOMYCIN 250 MG/5 ML ORAL SOLUTION PO SCH ×5 (00:44→20:41)
[2020-05-06] MEDS ORDERED: cefTRIAXone SODIUM 1 GM VIAL ONE (08:56)
[2020-05-06] MEDS ORDERED: DEXTROSE 5%-WATER - 50 ML IVPB ONE (08:56)
[2020-05-06] MEDS: AMINO ACIDS/PROTEIN HYDROLYS 30 ML LIQUID.PKT GT SCH (08:58)
[2020-05-06] MEDS: SERTRALINE HCL 50 MG TABLET (FP) GT SCH (09:03)
[2020-05-06] MEDS: FERROUS SO4 300 MG/5 ML ORAL SOLN UNIT DOSE CUPS GT SCH (09:03)
[2020-05-06] MEDS: POTASSIUM CHLORIDE ORAL LIQUID 20 MEQ/15 ML PO SCH (09:03)
[2020-05-06] MEDS: CEFTRIAXONE 1 GM in DEXTROSE 5%-WATER - 50 ML IVPB SCH (09:03)
[2020-05-06] MEDS: COLLAGENASE CLOSTRIDIUM HIST. 30 GRAMS TUBE TP SCH (09:04)
[2020-05-06] MEDS: FAMOTIDINE 40 MG/5 ML ORAL SUSPENSION PEG SCH (09:04)
[2020-05-06 09:38] LABS: BASO % 0.2 % (0-2.0); EOS % 1.5 % (0-4.5); HEMATOCRIT 25.9 % (32.4-45.2); HEMOGLOBIN 8.4 GM/dL (10.7-15.3); MCH 29.6 pg (25.7-33.7); MCHC 32.5 g/dl (32.0-36.0); MEAN CELL VOLUME 90.9 fl (80-96); NEUT % 79.3 % (42.8-82.8); PLATELET COUNT 338 K/MM3 (134-434); RBC 2.85 M/mm3 (3.60-5.2); RDW 18.8 % (11.6-15.6); WHITE BLOOD COUNT 15.1 K/mm3 (4.0-10.0)
[2020-05-06 09:56] LABS: POTASSIUM 3.9 mmol/L (3.5-5.1)
[2020-05-06 10:09] LABS: CALCIUM 7.9 mg/dL (8.5-10.1)
[2020-05-06 10:10] LABS: ALBUMIN 1.5 g/dl (3.4-5.0); BLOOD UREA NITROGEN 8.3 mg/dL (7-18)
[2020-05-06 10:13] LABS: CREATININE 0.3 mg/dL (0.55-1.3)
[2020-05-06 10:14] LABS: TOT PROT 5.6 g/dl (6.4-8.2)
[2020-05-06] MEDS ORDERED: PT OWN MED DRAWER 7, Y5N ONE (20:46)
[2020-05-06] MEDS: BANATROL PLUS POWDER PACKET GT SCH (22:24)
[2020-05-07] MEDS: VANCOMYCIN 250 MG/5 ML ORAL SOLUTION PO SCH ×4 (00:35→17:52)
[2020-05-07] MEDS: BANATROL PLUS POWDER PACKET GT SCH ×3 (06:05→22:00)
[2020-05-07] MEDS ORDERED: DEXTROSE 5%-WATER - 50 ML IVPB ONE (08:44)
[2020-05-07] MEDS ORDERED: cefTRIAXone SODIUM 1 GM VIAL ONE (08:44)
[2020-05-07] MEDS: FERROUS SO4 300 MG/5 ML ORAL SOLN UNIT DOSE CUPS GT SCH (09:00)
[2020-05-07] MEDS: AMINO ACIDS/PROTEIN HYDROLYS 30 ML LIQUID.PKT GT SCH (09:00)
[2020-05-07] MEDS: CEFTRIAXONE 1 GM in DEXTROSE 5%-WATER - 50 ML IVPB SCH (09:00)
[2020-05-07] MEDS: POTASSIUM CHLORIDE ORAL LIQUID 20 MEQ/15 ML PO SCH (09:00)
[2020-05-07] MEDS: COLLAGENASE CLOSTRIDIUM HIST. 30 GRAMS TUBE TP SCH (09:01)
[2020-05-07] MEDS: SERTRALINE HCL 50 MG TABLET (FP) GT SCH (09:01)
[2020-05-07] MEDS: FAMOTIDINE 40 MG/5 ML ORAL SUSPENSION PEG SCH (10:24)
[2020-05-07 10:43] LABS: BASO % 0.4 % (0-2.0); EOS % 2.3 % (0-4.5); HEMOGLOBIN 8.2 GM/dL (10.7-15.3); LYMPH % 13.1 % (8-40); MCH 29.7 pg (25.7-33.7); MCHC 32.8 g/dl (32.0-36.0); MEAN CELL VOLUME 90.6 fl (80-96); MEAN PLT VOLUME 8.1 fl (7.5-11.1); MONO % 8.9 % (3.8-10.2); NEUT % 75.3 % (42.8-82.8); PLATELET COUNT 351 K/MM3 (134-434); RBC 2.76 M/mm3 (3.60-5.2); RDW 18.7 % (11.6-15.6); WHITE BLOOD COUNT 12.9 K/mm3 (4.0-10.0)
[2020-05-07 10:57] LABS: POTASSIUM 4.2 mmol/L (3.5-5.1)
[2020-05-07 10:59] LABS: ALBUMIN 1.6 g/dl (3.4-5.0); BLOOD UREA NITROGEN 7.4 mg/dL (7-18); CALCIUM 7.8 mg/dL (8.5-10.1)
[2020-05-07 11:03] LABS: CREATININE 0.3 mg/dL (0.55-1.3)
[2020-05-07 11:04] LABS: BILIRUBIN,TOTAL 0.3 mg/dL (0.2-1); TOT PROT 5.9 g/dl (6.4-8.2)
[2020-05-07] MEDS ORDERED: PT OWN MED DRAWER 7, Y5N ONE (14:41)
[2020-05-08] MEDS: VANCOMYCIN 250 MG/5 ML ORAL SOLUTION PO SCH ×4 (00:42→17:25)
[2020-05-08] MEDS: BANATROL PLUS POWDER PACKET GT SCH ×2 (06:21→14:02)
[2020-05-08 10:39] LABS: BASO % 0.8 % (0-2.0); EOS % 2.5 % (0-4.5); HEMATOCRIT 25.5 % (32.4-45.2); HEMOGLOBIN 8.4 GM/dL (10.7-15.3); MCHC 32.9 g/dl (32.0-36.0); MEAN CELL VOLUME 91.1 fl (80-96); MEAN PLT VOLUME 8.1 fl (7.5-11.1); MONO % 12.1 % (3.8-10.2); NEUT % 68.6 % (42.8-82.8); PLATELET COUNT 372 K/MM3 (134-434); RDW 18.4 % (11.6-15.6); WHITE BLOOD COUNT 10.9 K/mm3 (4.0-10.0)
[2020-05-08 10:59] LABS: POTASSIUM 4.8 mmol/L (3.5-5.1)
[2020-05-08 11:01] LABS: CALCIUM 7.7 mg/dL (8.5-10.1)
[2020-05-08 11:02] LABS: ALBUMIN 1.5 g/dl (3.4-5.0); BLOOD UREA NITROGEN 7.3 mg/dL (7-18)
[2020-05-08 11:05] LABS: CREATININE 0.3 mg/dL (0.55-1.3)
[2020-05-08 11:06] LABS: BILIRUBIN,TOTAL 0.3 mg/dL (0.2-1)
[2020-05-08] MEDS ORDERED: cefTRIAXone SODIUM 1 GM VIAL ONE (11:17)
[2020-05-08] MEDS ORDERED: DEXTROSE 5%-WATER - 50 ML IVPB ONE (11:18)
[2020-05-08] MEDS: AMINO ACIDS/PROTEIN HYDROLYS 30 ML LIQUID.PKT GT SCH (11:31)
[2020-05-08] MEDS: FERROUS SO4 300 MG/5 ML ORAL SOLN UNIT DOSE CUPS GT SCH (11:32)
[2020-05-08] MEDS: SERTRALINE HCL 50 MG TABLET (FP) GT SCH (11:32)
[2020-05-08] MEDS: CEFTRIAXONE 1 GM in DEXTROSE 5%-WATER - 50 ML IVPB SCH (11:32)
[2020-05-08] MEDS: POTASSIUM CHLORIDE ORAL LIQUID 20 MEQ/15 ML PO SCH (11:32)
[2020-05-08] MEDS: ACETAMINOPHEN 650 MG/20.3 ML ORAL SOLUTION (CUPS) GT PRN ×2 (11:36→17:25)
[2020-05-08] MEDS: COLLAGENASE CLOSTRIDIUM HIST. 30 GRAMS TUBE TP SCH (11:38)
[2020-05-08] MEDS: FAMOTIDINE 40 MG/5 ML ORAL SUSPENSION PEG SCH (11:38)
[2020-05-08 18:58] VITALS: BP 118/51; PULSE 86; TEMP 99
== END 2020-05-08 17:51 | DRG 377 ==
LOC: JER 12:41 → JERBED 21:00 → J8W 04-29 08:17 → J5S 05-01 12:47
PROVIDERS: ADMIT Hospitalist; ATTEND Family Medicine
PROC: 2W15X6Z Compression of Back using Pressure Dressing (ICD-10-PCS; principal; 2020-04-30)
PROC: 30233N1 Transfusion of Nonautologous Red Blood Cells into Peripheral Vein, Percutaneous Approach (ICD-10-PCS; 2020-04-30)
PROC: 0DJ08ZZ Inspection of Upper Intestinal Tract, Via Natural or Artificial Opening Endoscopic (ICD-10-PCS; 2020-05-01)
DX: K92.2 Gastrointestinal hemorrhage, unspecified (principal); L89.154 Pressure ulcer of sacral region, stage 4; R53.2 Functional quadriplegia; E43 Unspecified severe protein-calorie malnutrition; D62 Acute posthemorrhagic anemia; R64 Cachexia; Z68.1 Body mass index [BMI] 19.9 or less, adult; N39.0 Urinary tract infection, site not specified; E44.0 Moderate protein-calorie malnutrition; M46.28 Osteomyelitis of vertebra, sacral and sacrococcygeal region; J96.10 Chronic respiratory failure, unspecified whether with hypoxia or hypercapnia; A04.72 Enterocolitis due to Clostridium difficile, not specified as recurrent; I10 Essential (primary) hypertension; Z93.0 Tracheostomy status; E20.9 Hypoparathyroidism, unspecified; K57.90 Diverticulosis of intestine, part unspecified, without perforation or abscess without bleeding; G30.9 Alzheimer's disease, unspecified; F02.80 Dementia in other diseases classified elsewhere, unspecified severity, without behavioral disturbance, psychotic disturbance, mood disturbance, and anxiety; B96.20 Unspecified Escherichia coli [E. coli] as the cause of diseases classified elsewhere; E78.5 Hyperlipidemia, unspecified; Z86.73 Personal history of transient ischemic attack (TIA), and cerebral infarction without residual deficits; M54.5 Low back pain; R33.9 Retention of urine, unspecified; R19.7 Diarrhea, unspecified; D72.829 Elevated white blood cell count, unspecified; Z88.0 Allergy status to penicillin
CPT/HCPCS: 36415; 36430; 36511; 71045-TC-FY; 74018-TC-FY; 74174-TC; 74177-TC; 80048; 80053; 81003; 82272; 82550; 82962; 83540; 83550; 83605; 83735; 84484; 85025; 85027; 85610; 85651; 85730; 86140; 86850; 86900; 86901; 86922; 87040; 87086; 87186; 87324; 87449; 93005; 93010; 99285-25; C9803; J1439; P9038; P9058; Q9967; U0003

== ENCOUNTER 2020-11-16 18:37 | Emergency (ER) | payer OTHER ==
[2020-11-16 19:12] VITALS: TEMP 98.8; BMI 19.2
[2020-11-16 22:36] VITALS: BP 167/88; PULSE 88
== END 2020-11-16 22:36 | disposition home or self-care (01) ==
LOC: JER 18:37
DX: T85.528A Displacement of other gastrointestinal prosthetic devices, implants and grafts, initial encounter (principal)
CPT/HCPCS: 74018-TC-FY; 99283-25

== ENCOUNTER 2020-11-17 11:43 | Emergency (ER) | payer OTHER ==
[2020-11-17 12:01] VITALS: TEMP 97.8; BMI 19.1
[2020-11-17 21:44] VITALS: BP 178/83; PULSE 78
== END 2020-11-17 23:52 | disposition home or self-care (01) ==
LOC: JER 11:43
DX: T85.528A Displacement of other gastrointestinal prosthetic devices, implants and grafts, initial encounter (principal)
CPT/HCPCS: 49440; 99283-25; C1769

== ENCOUNTER 2020-12-03 02:15 | Emergency (ER) | payer OTHER ==
[2020-12-03 02:34] VITALS: BMI 18.8
[2020-12-03 05:23] VITALS: TEMP 98.6
[2020-12-03 08:36] VITALS: BP 161/99; PULSE 69
== END 2020-12-03 08:37 | disposition home or self-care (01) ==
LOC: JER 02:15
DX: K94.23 Gastrostomy malfunction (principal)
CPT/HCPCS: 99282-25

== ENCOUNTER 2020-12-12 13:53 | Emergency (ER) | payer OTHER ==
[2020-12-12 14:07] VITALS: BMI 18.8
[2020-12-12 19:14] VITALS: TEMP 98
[2020-12-12 19:15] VITALS: BP 166/88; PULSE 70
== END 2020-12-12 22:07 | disposition home or self-care (01) ==
LOC: JER 13:53
DX: K94.23 Gastrostomy malfunction (principal)
CPT/HCPCS: 74018-TC-FY; 99283-25

== ENCOUNTER 2021-01-26 23:50 | Inpatient (IN) | payer OTHER ==
[2021-01-27] MEDS ORDERED: SODIUM CHLORIDE 1,973 ML IV ONE (00:05)
[2021-01-27] MEDS ORDERED: VANCOMYCIN 1 GM in D5W (PRE-DOCKED) 1,000 MG/250 ML IVPB ONE (00:10)
[2021-01-27] MEDS ORDERED: MEROPENEM 1 GM in DEXTROSE 5%-WATER 100 ML IVPB ONE (00:12)
[2021-01-27] MEDS ORDERED: ACETAMINOPHEN 1000 MG/100 ML VIAL IVPB ONE (00:36)
[2021-01-27 00:37] LABS: MCH 31.4 pg (25.7-33.7); MCHC 33.4 g/dl (32.0-36.0); PLATELET COUNT 262 10^3/uL (134-434); RBC 4.79 M/mm3 (3.60-5.2); RDW 14.9 % (11.6-15.6); WHITE BLOOD COUNT 6.7 K/mm3 (4.0-10.0)
[2021-01-27] MEDS ORDERED: ACETAMINOPHEN INJECTION 100 ML IVPB ONE (00:44)
[2021-01-27 00:47] LABS: EPI CELLS >36 /uL (0-25.1); HYALINE CASTS 94 /uL (0-3.1); PH,URINE 5.5 (5.0-8.0); URINE APPEARANCE TURBID; URINE BACTERIA >9,000 /uL (0-1359); URINE BILIRUBIN 1+ (NEGATIVE); URINE COLOR ORANGE; URINE GLUCOSE (UA) NEGATIVE (NEGATIVE); URINE KETONE NEGATIVE (NEGATIVE); URINE LEUK ESTERASE 3+ (NEGATIVE); URINE NITRITE POSITIVE (NEGATIVE); URINE PROTEIN 2+ (NEGATIVE); URINE WBC 13619 /uL (0-25.8)
[2021-01-27 00:50] LABS: INR 1.09 (0.83-1.09); PROTHROMBIN TIME (PATIENT) 13.4 SEC (9.7-13.0)
[2021-01-27] MEDS ORDERED: MEROPENEM 500 MG VIAL (RESTRICTED TO ID) IVPB ONE (00:50)
[2021-01-27 00:52] LABS: ACTIVATED PTT 33.2 SECONDS (25.2-36.5)
[2021-01-27 01:02] LABS: CHLORIDE 103 mmol/L (98-107); SODIUM 141 mmol/L (136-145)
[2021-01-27 01:04] LABS: CALCIUM 9.5 mg/dL (8.5-10.1)
[2021-01-27 01:05] LABS: ALBUMIN 2.2 g/dl (3.4-5.0); ANION GAP 16 MMOL/L (8-16); CO2 22 mmol/L (21-32)
[2021-01-27 01:07] LABS: GLUCOSE,RANDOM 133 mg/dL (74-106)
[2021-01-27 01:08] LABS: CREATININE 2.1 mg/dL (0.55-1.3); SGOT/AST 32 U/L (15-37); SGPT/ALT 21 U/L (13-61)
[2021-01-27 01:10] LABS: BILIRUBIN,TOTAL 1.5 mg/dL (0.2-1); TOT PROT 6.8 g/dl (6.4-8.2)
[2021-01-27 01:11] LABS: ALK PHOS 118 U/L (45-117)
[2021-01-27] MEDS ORDERED: VANCOMYCIN 1 GRAM (PRE-DOCKED) 1,000 MG/250 ML BAG IVPB ONE (01:31)
[2021-01-27 01:38] LABS: VENOUS BASE EXCESS -3.4 mmol/L (-2-2); VENOUS O2 SATURATION 78.5 % (70-80); VENOUS PCO2 35.6 mmHg (38-52); VENOUS PH 7.384 (7.310-7.410)
[2021-01-27] MEDS ORDERED: LACTATED RINGERS SOLUTION 1000 ML INFUS.BAG IV ONE (02:10)
[2021-01-27] MEDS ORDERED: SODIUM CHLORIDE 1,000 ML IV SCH ×4 (02:15→04:36)
[2021-01-27 02:21] LABS: LACTIC ACID 8.4 mmol/L (0.4-2.0)
[2021-01-27] MEDS ORDERED: ACETAMINOPHEN 650 MG/20.3 ML ORAL SOLUTION (CUPS) GT PRN (04:28)
[2021-01-27 05:06] LABS: URINE RBC 193.8 /uL (0-23.9); YEAST NONE SEEN (NEGATIVE)
[2021-01-27 06:38] LABS: LACTIC ACID 6.6 mmol/L (0.4-2.0)
[2021-01-27] MEDS: SODIUM CHLORIDE 1,000 ML IV SCH (06:48)
[2021-01-27 07:13] LABS: ANISOCYTOSIS 1+; MACROCYTOSIS 0; PLATELET ESTIMATE NORMAL
[2021-01-27 07:21] LABS: HEMATOCRIT 39.9 % (32.4-45.2); HEMOGLOBIN 13.3 GM/dL (10.7-15.3); MCH 31.5 pg (25.7-33.7); MCHC 33.4 g/dl (32.0-36.0); MEAN CELL VOLUME 94.2 fl (80-96); MEAN PLT VOLUME 7.9 fl (7.5-11.1); PLATELET COUNT 182 10^3/uL (134-434); RBC 4.24 M/mm3 (3.60-5.2); RDW 14.7 % (11.6-15.6); WHITE BLOOD COUNT 5.7 K/mm3 (4.0-10.0)
[2021-01-27 07:59] LABS: CALCIUM 8.2 mg/dL (8.5-10.1); MAGNESIUM 1.8 mg/dL (1.8-2.4)
[2021-01-27 08:01] LABS: BLOOD UREA NITROGEN 28.2 mg/dL (7-18); LACTIC ACID 5.5 mmol/L (0.4-2.0)
[2021-01-27 08:02] LABS: CREATININE 1.2 mg/dL (0.55-1.3); PHOSPHOROUS 2.4 mg/dL (2.5-4.9)
[2021-01-27] MEDS: NOREPINEPHRINE D5W PREMIX 16,000 MCG/500 ML BAG IVPB SCH (09:40)
[2021-01-27] MEDS ORDERED: FAMOTIDINE 40 MG/5 ML ORAL SUSPENSION PEG SCH (10:00)
[2021-01-27] MEDS ORDERED: VANCOMYCIN 1 GM in D5W (PRE-DOCKED) 1,000 MG/250 ML IVPB SCH (10:00)
[2021-01-27] MEDS ORDERED: ASCORBIC ACID 500 MG/5 ML UNIT DOSE CUP GT SCH (10:00)
[2021-01-27] MEDS ORDERED: FERROUS SO4 300 MG/5 ML ORAL SOLN UNIT DOSE CUPS GT SCH (10:00)
[2021-01-27] MEDS ORDERED: ZINC SULFATE 220 MG CAPSULE (FP) GT SCH (10:00)
[2021-01-27] MEDS ORDERED: SENNOSIDES 8.8 MG/5 ML BULK BOTTLE GT SCH (10:00)
[2021-01-27] MEDS ORDERED: MULTIVIT-MINERALS ORAL LIQUID PO SCH (10:00)
[2021-01-27] MEDS ORDERED: SERTRALINE HCL 50 MG TABLET (FP) GT SCH (10:00)
[2021-01-27] MEDS ORDERED: DEXTROSE 5%-WATER 100 ML IVPB ONE (13:02)
[2021-01-27] MEDS ORDERED: MEROPENEM 1 GM VIAL (RESTRICTED TO ID) IVPB ONE (13:02)
[2021-01-27] MEDS: MEROPENEM 1 GM in DEXTROSE 5%-WATER 100 ML IVPB SCH (13:04)
[2021-01-27] MEDS: ENOXAPARIN NA (PORCINE) 30 MG/0.3 ML DISP.SYRIN SQ SCH (13:06)
[2021-01-27] MEDS ORDERED: POTASSIUM PHOSPHATE 30 MM in SODIUM CHLORIDE 250 ML IVPB ONE (15:00)
[2021-01-27] MEDS: MUPIROCIN 2% TOPICAL OINTMENT FOR DECOLONIZATION NS SCH ×2 (15:00→21:21)
[2021-01-27] MEDS ORDERED: ACETAMINOPHEN 1000 MG/100 ML VIAL IVPB PRN (16:32)
[2021-01-27] MEDS: CHLORHEXIDINE GLUCONATE 4% CLEANSER FOR DECOLONIZATION TP SCH (21:21)
[2021-01-28] MEDS ORDERED: MEROPENEM 1 GM VIAL (RESTRICTED TO ID) IVPB ONE ×3 (00:27→16:35)
[2021-01-28] MEDS ORDERED: DEXTROSE 5%-WATER 100 ML IVPB ONE ×3 (00:27→16:35)
[2021-01-28] MEDS: MEROPENEM 1 GM in DEXTROSE 5%-WATER 100 ML IVPB SCH ×3 (01:14→17:05)
[2021-01-28] MEDS ORDERED: VANCOMYCIN 1 GM in D5W (PRE-DOCKED) 1,000 MG/250 ML IVPB SCH (01:30)
[2021-01-28 07:16] LABS: HEMATOCRIT 34.7 % (32.4-45.2); HEMOGLOBIN 11.6 GM/dL (10.7-15.3); MCH 31.1 pg (25.7-33.7); MCHC 33.4 g/dl (32.0-36.0); MEAN CELL VOLUME 93.2 fl (80-96); MEAN PLT VOLUME 8.2 fl (7.5-11.1); PLATELET COUNT 199 10^3/uL (134-434); RBC 3.72 M/mm3 (3.60-5.2); RDW 15.1 % (11.6-15.6); WHITE BLOOD COUNT 15.6 K/mm3 (4.0-10.0)
[2021-01-28 07:41] LABS: LACTIC ACID 3.9 mmol/L (0.4-2.0)
[2021-01-28 07:43] LABS: MAGNESIUM 1.8 mg/dL (1.8-2.4)
[2021-01-28 07:44] LABS: BLOOD UREA NITROGEN 25.8 mg/dL (7-18)
[2021-01-28 07:46] LABS: CREATININE 0.8 mg/dL (0.55-1.3)
[2021-01-28 07:47] LABS: PHOSPHOROUS 3.9 mg/dL (2.5-4.9)
[2021-01-28 07:48] LABS: BILIRUBIN,TOTAL 0.6 mg/dL (0.2-1); TOT PROT 4.9 g/dl (6.4-8.2)
[2021-01-28] MEDS ORDERED: MAGNESIUM 1GM/D5W 100ML - 100 ML IVPB IVPB ONE (08:00)
[2021-01-28 08:01] LABS: ALBUMIN 1.5 g/dl (3.4-5.0)
[2021-01-28] MEDS: SODIUM CHLORIDE 1,000 ML IV SCH ×2 (08:01→08:45)
[2021-01-28] MEDS ORDERED: PT OWN MED DRAWER 7, Y5N ONE (08:54)
[2021-01-28] MEDS: NOREPINEPHRINE D5W PREMIX 16,000 MCG/500 ML BAG IVPB SCH (08:56)
[2021-01-28] MEDS: PANTOPRAZOLE SODIUM 40 MG VIAL IVPUSH SCH (09:00)
[2021-01-28] MEDS: MUPIROCIN 2% TOPICAL OINTMENT FOR DECOLONIZATION NS SCH ×2 (09:00→22:50)
[2021-01-28] MEDS: ENOXAPARIN NA (PORCINE) 30 MG/0.3 ML DISP.SYRIN SQ SCH (09:00)
[2021-01-28 09:51] LABS: ANISOCYTOSIS 0; HELMET CELLS 0; HOWELL-JOLLY BODIES 0; MACROCYTOSIS 0; OVALOCYTE 0; PLATELET ESTIMATE NORMAL; ROULEAU 0; SICKELED CELLS 0; TARGET CELLS 0; TEAR DROP CELLS 0; TOXIC GRANULATION 0
[2021-01-28] MEDS ORDERED: MULTIVIT INJ. ADULT COMBO WITH VIT K 1 COMBO 10 ML VIAL IV SCH (10:00)
[2021-01-28] MEDS: COLLAGENASE CLOSTRIDIUM HIST. 30 GRAMS TUBE TP SCH (10:05)
[2021-01-28] MEDS ORDERED: ACETAMINOPHEN 650 MG/20.3 ML ORAL SOLUTION (CUPS) GT PRN (10:44)
[2021-01-28] MEDS ORDERED: NOREPINEPHRINE D5W PREMIX 16,000 MCG/500 ML BAG IVPB SCH (10:44)
[2021-01-28] MEDS ORDERED: SODIUM CHLORIDE 500 ML IV STA (16:35)
[2021-01-28] MEDS ORDERED: LACTATED RINGERS SOLUTION 1000 ML INFUS.BAG IV ONE (16:38)
[2021-01-28] MEDS: LYTES/YERBA SANTA 60 ML SPRAY MM SCH (22:50)
[2021-01-28] MEDS: ZINC SULFATE 220 MG CAPSULE (FP) GT SCH (22:50)
[2021-01-28] MEDS: CHLORHEXIDINE GLUCONATE 4% CLEANSER FOR DECOLONIZATION TP SCH (22:50)
[2021-01-29] MEDS ORDERED: PT OWN MED DRAWER 7, Y5N ONE ×2 (00:05→09:45)
[2021-01-29] MEDS: MEROPENEM 1 GM in DEXTROSE 5%-WATER 100 ML IVPB SCH ×3 (02:35→17:17)
[2021-01-29] MEDS ORDERED: MEROPENEM 1 GM VIAL (RESTRICTED TO ID) IVPB ONE ×3 (03:16→17:15)
[2021-01-29] MEDS ORDERED: DEXTROSE 5%-WATER 100 ML IVPB ONE ×3 (03:17→17:15)
[2021-01-29 07:42] LABS: HEMATOCRIT 30.9 % (32.4-45.2); HEMOGLOBIN 10.7 GM/dL (10.7-15.3); MCH 32.2 pg (25.7-33.7); MCHC 34.6 g/dl (32.0-36.0); MEAN CELL VOLUME 93.3 fl (80-96); MEAN PLT VOLUME 9.1 fl (7.5-11.1); PLATELET COUNT 174 10^3/uL (134-434); RBC 3.32 M/mm3 (3.60-5.2); RDW 15.3 % (11.6-15.6)
[2021-01-29 07:43] LABS: CALCIUM 7.6 mg/dL (8.5-10.1)
[2021-01-29 07:44] LABS: BLOOD UREA NITROGEN 18.4 mg/dL (7-18); MAGNESIUM 2.3 mg/dL (1.8-2.4)
[2021-01-29 07:45] LABS: ALBUMIN 1.2 g/dl (3.4-5.0)
[2021-01-29 07:46] LABS: CREATININE 0.5 mg/dL (0.55-1.3); PHOSPHOROUS 2.3 mg/dL (2.5-4.9)
[2021-01-29 07:48] LABS: BILIRUBIN,TOTAL 0.4 mg/dL (0.2-1); TOT PROT 4.4 g/dl (6.4-8.2)
[2021-01-29] MEDS ORDERED: DEXTROSE 50%-WATER - 25 GM/50 ML VIAL IVPUSH ONE (08:01)
[2021-01-29] MEDS ORDERED: DEXTROSE 50%-WATER - 25 GM/50 ML VIAL ONE (08:18)
[2021-01-29] MEDS ORDERED: POTASSIUM PHOSPHATE 30 MM in DEXTROSE 5%-WATER - 250 ML IVPB ONE (09:00)
[2021-01-29 09:43] LABS: ANISOCYTOSIS 0; MACROCYTOSIS 0; PLATELET ESTIMATE NORMAL; TARGET CELLS 1+; TEAR DROP CELLS 1+
[2021-01-29] MEDS ORDERED: ENOXAPARIN NA (PORCINE) 30 MG/0.3 ML DISP.SYRIN SQ SCH (10:00)
[2021-01-29] MEDS: PANTOPRAZOLE SODIUM 40 MG VIAL IVPUSH SCH (10:04)
[2021-01-29] MEDS: ENOXAPARIN NA (PORCINE) 40 MG/0.4 ML DISP.SYRIN SQ SCH (10:04)
[2021-01-29] MEDS: LYTES/YERBA SANTA 60 ML SPRAY MM SCH ×2 (10:04→22:04)
[2021-01-29] MEDS: MUPIROCIN 2% TOPICAL OINTMENT FOR DECOLONIZATION NS SCH ×2 (10:04→22:04)
[2021-01-29] MEDS: COLLAGENASE CLOSTRIDIUM HIST. 30 GRAMS TUBE TP SCH (10:05)
[2021-01-29] MEDS ORDERED: LACTATED RINGERS SOLUTION 1,000 ML/1,000 ML INFUS.BAG IV ONE (10:19)
[2021-01-29] MEDS: FERROUS SO4 300 MG/5 ML ORAL SOLN UNIT DOSE CUPS GT SCH (11:01)
[2021-01-29] MEDS: ZINC SULFATE 220 MG CAPSULE (FP) GT SCH ×2 (11:01→22:05)
[2021-01-29] MEDS: ASCORBIC ACID 500 MG/5 ML UNIT DOSE CUP GT SCH (11:01)
[2021-01-29] MEDS: SENNOSIDES 8.8 MG/5 ML BULK BOTTLE GT SCH (11:01)
[2021-01-29] MEDS: SERTRALINE HCL 50 MG TABLET (FP) GT SCH (11:01)
[2021-01-29] MEDS: SODIUM CHLORIDE 1,000 ML IV SCH (11:02)
[2021-01-29] MEDS ORDERED: ACETAMINOPHEN 1000 MG/100 ML VIAL IVPB PRN (14:59)
[2021-01-29] MEDS ORDERED: morphine SULFATE 4 MG/ML VIAL ONE (15:06)
[2021-01-29] MEDS: morphine SULFATE 4 MG/ML VIAL IVPUSH PRN (15:19)
[2021-01-29] MEDS: POTASSIUM CHLORIDE 10 MEQ in SODIUM CHLORIDE 0.45% 1,000 ML IVPB SCH (16:56)
[2021-01-29] MEDS: CHLORHEXIDINE GLUCONATE 4% CLEANSER FOR DECOLONIZATION TP SCH (22:04)
[2021-01-30] MEDS: morphine SULFATE 4 MG/ML VIAL IVPUSH PRN ×2 (00:23→12:21)
[2021-01-30] MEDS ORDERED: DEXTROSE 5%-WATER 100 ML IVPB ONE ×3 (02:35→18:38)
[2021-01-30] MEDS ORDERED: MEROPENEM 1 GM VIAL (RESTRICTED TO ID) IVPB ONE ×3 (02:35→18:38)
[2021-01-30] MEDS: MEROPENEM 1 GM in DEXTROSE 5%-WATER 100 ML IVPB SCH ×3 (02:37→18:39)
[2021-01-30] MEDS: POTASSIUM CHLORIDE 10 MEQ in SODIUM CHLORIDE 0.45% 1,000 ML IVPB SCH ×2 (06:16→10:08)
[2021-01-30] MEDS: PANTOPRAZOLE SODIUM 40 MG VIAL IVPUSH SCH (09:26)
[2021-01-30] MEDS: FERROUS SO4 300 MG/5 ML ORAL SOLN UNIT DOSE CUPS GT SCH ×2 (09:26→10:08)
[2021-01-30] MEDS: ZINC SULFATE 220 MG CAPSULE (FP) GT SCH ×2 (09:26→09:38)
[2021-01-30] MEDS: SERTRALINE HCL 50 MG TABLET (FP) GT SCH ×2 (09:26→10:08)
[2021-01-30] MEDS: SENNOSIDES 8.8 MG/5 ML BULK BOTTLE GT SCH ×2 (09:26→10:08)
[2021-01-30] MEDS: ASCORBIC ACID 500 MG/5 ML UNIT DOSE CUP GT SCH ×2 (09:26→10:08)
[2021-01-30] MEDS: COLLAGENASE CLOSTRIDIUM HIST. 30 GRAMS TUBE TP SCH (09:27)
[2021-01-30] MEDS: ENOXAPARIN NA (PORCINE) 40 MG/0.4 ML DISP.SYRIN SQ SCH ×2 (09:27→09:40)
[2021-01-30] MEDS: MUPIROCIN 2% TOPICAL OINTMENT FOR DECOLONIZATION NS SCH ×2 (09:27→21:55)
[2021-01-30] MEDS: LYTES/YERBA SANTA 60 ML SPRAY MM SCH ×2 (10:09→21:56)
[2021-01-30] MEDS: POTASSIUM CHLORIDE 20 MEQ PREMIX IVPB 100 ML IVPB SCH ×2 (11:59→13:58)
[2021-01-30] MEDS ORDERED: MULTIVIT INJ. ADULT COMBO WITH VIT K 1 COMBO 10 ML VIAL IV SCH (12:30)
[2021-01-30] MEDS ORDERED: PT OWN MED DRAWER 7, Y5N ONE (13:55)
[2021-01-30] MEDS: POTASSIUM CHLORIDE 10 MEQ in AMINO ACIDS 4.25%/D5W 1,000 ML IV SCH (13:56)
[2021-01-30] MEDS: MULTIVIT INJ. ADULT COMBO WITH VIT K 1 COMBO 10 ML VIAL IV SCH (13:56)
[2021-01-30] MEDS ORDERED: LACTATED RINGERS SOLUTION 1,000 ML/1,000 ML INFUS.BAG IV STA (17:56)
[2021-01-30] MEDS: CHLORHEXIDINE GLUCONATE 4% CLEANSER FOR DECOLONIZATION TP SCH (21:56)
[2021-01-30] MEDS ORDERED: CEFTRIAXONE 1 GM in DEXTROSE 5%-WATER - 50 ML IVPB SCH (23:50)
[2021-01-31] MEDS ORDERED: MEROPENEM 1 GM VIAL (RESTRICTED TO ID) IVPB ONE ×3 (01:53→16:52)
[2021-01-31] MEDS ORDERED: DEXTROSE 5%-WATER 100 ML IVPB ONE ×3 (01:53→16:52)
[2021-01-31] MEDS: MEROPENEM 1 GM in DEXTROSE 5%-WATER 100 ML IVPB SCH ×3 (01:56→17:20)
[2021-01-31] MEDS: POTASSIUM CHLORIDE 10 MEQ in AMINO ACIDS 4.25%/D5W 1,000 ML IV SCH ×2 (03:13→13:00)
[2021-01-31 07:04] LABS: CALCIUM 7.5 mg/dL (8.5-10.1)
[2021-01-31 07:08] LABS: CREATININE 0.3 mg/dL (0.55-1.3)
[2021-01-31 07:09] LABS: BILIRUBIN,TOTAL 0.4 mg/dL (0.2-1); TOT PROT 4.1 g/dl (6.4-8.2)
[2021-01-31 07:13] LABS: ALBUMIN 0.9 g/dl (3.4-5.0)
[2021-01-31 07:44] LABS: HEMATOCRIT 32.3 % (32.4-45.2); HEMOGLOBIN 10.8 GM/dL (10.7-15.3); MCH 31.2 pg (25.7-33.7); MCHC 33.5 g/dl (32.0-36.0); MEAN CELL VOLUME 93.1 fl (80-96); MEAN PLT VOLUME 8.9 fl (7.5-11.1); PLATELET COUNT 171 10^3/uL (134-434); RBC 3.47 M/mm3 (3.60-5.2); RDW 15.4 % (11.6-15.6); WHITE BLOOD COUNT 12.2 K/mm3 (4.0-10.0)
[2021-01-31] MEDS: COLLAGENASE CLOSTRIDIUM HIST. 30 GRAMS TUBE TP SCH (09:26)
[2021-01-31] MEDS: PANTOPRAZOLE SODIUM 40 MG VIAL IVPUSH SCH (09:26)
[2021-01-31] MEDS: MUPIROCIN 2% TOPICAL OINTMENT FOR DECOLONIZATION NS SCH ×2 (09:27→22:42)
[2021-01-31] MEDS: ENOXAPARIN NA (PORCINE) 40 MG/0.4 ML DISP.SYRIN SQ SCH (09:27)
[2021-01-31] MEDS: MULTIVIT INJ. ADULT COMBO WITH VIT K 1 COMBO 10 ML VIAL IV SCH (09:54)
[2021-01-31] MEDS: SERTRALINE HCL 50 MG TABLET (FP) GT SCH (09:55)
[2021-01-31] MEDS: LYTES/YERBA SANTA 60 ML SPRAY MM SCH ×2 (09:55→22:42)
[2021-01-31 10:50] LABS: ANISOCYTOSIS 0; HELMET CELLS 0; HOWELL-JOLLY BODIES 0; MACROCYTOSIS 0; OVALOCYTE 0; PLATELET ESTIMATE NORMAL; ROULEAU 0; SICKELED CELLS 0; TARGET CELLS 0; TEAR DROP CELLS 0; TOXIC GRANULATION 0
[2021-01-31] MEDS ORDERED: PT OWN MED DRAWER 7, Y5N ONE ×3 (15:34→16:15)
[2021-01-31] MEDS: CHLORHEXIDINE GLUCONATE 4% CLEANSER FOR DECOLONIZATION TP SCH (22:42)
[2021-02-01] MEDS: POTASSIUM CHLORIDE 10 MEQ in AMINO ACIDS 4.25%/D5W 1,000 ML IV SCH ×4 (00:32→21:25)
[2021-02-01] MEDS ORDERED: MEROPENEM 1 GM VIAL (RESTRICTED TO ID) IVPB ONE ×3 (01:55→16:53)
[2021-02-01] MEDS ORDERED: DEXTROSE 5%-WATER 100 ML IVPB ONE ×3 (01:56→16:54)
[2021-02-01] MEDS: MEROPENEM 1 GM in DEXTROSE 5%-WATER 100 ML IVPB SCH ×3 (01:57→17:45)
[2021-02-01 07:32] LABS: ALBUMIN 0.9 g/dl (3.4-5.0); BLOOD UREA NITROGEN 23.1 mg/dL (7-18)
[2021-02-01 07:34] LABS: BILIRUBIN,TOTAL 0.4 mg/dL (0.2-1); CALCIUM 7.2 mg/dL (8.5-10.1); TOT PROT 4.3 g/dl (6.4-8.2)
[2021-02-01 07:35] LABS: CREATININE 0.3 mg/dL (0.55-1.3); MAGNESIUM 1.7 mg/dL (1.8-2.4); PHOSPHOROUS 1.7 mg/dL (2.5-4.9)
[2021-02-01 07:40] LABS: HEMOGLOBIN 10.8 GM/dL (10.7-15.3); MCHC 33.7 g/dl (32.0-36.0); MEAN CELL VOLUME 91.8 fl (80-96); MEAN PLT VOLUME 8.2 fl (7.5-11.1); PLATELET COUNT 197 10^3/uL (134-434); RBC 3.48 M/mm3 (3.60-5.2); RDW 15.2 % (11.6-15.6); WHITE BLOOD COUNT 20.4 K/mm3 (4.0-10.0)
[2021-02-01] MEDS: MUPIROCIN 2% TOPICAL OINTMENT FOR DECOLONIZATION NS SCH (09:11)
[2021-02-01] MEDS: ENOXAPARIN NA (PORCINE) 40 MG/0.4 ML DISP.SYRIN SQ SCH (09:11)
[2021-02-01] MEDS: COLLAGENASE CLOSTRIDIUM HIST. 30 GRAMS TUBE TP SCH (09:11)
[2021-02-01] MEDS: LYTES/YERBA SANTA 60 ML SPRAY MM SCH ×2 (09:11→21:25)
[2021-02-01] MEDS: PANTOPRAZOLE SODIUM 40 MG VIAL IVPUSH SCH (09:11)
[2021-02-01] MEDS: morphine SULFATE 4 MG/ML VIAL IVPUSH PRN (09:27)
[2021-02-01] MEDS: MULTIVIT INJ. ADULT COMBO WITH VIT K 1 COMBO 10 ML VIAL IV SCH ×2 (10:17→21:25)
[2021-02-01 11:11] LABS: ANISOCYTOSIS 1+; MACROCYTOSIS 0; OVALOCYTE 1+; PLATELET ESTIMATE NORMAL; TARGET CELLS 1+
[2021-02-01] MEDS: SERTRALINE HCL 50 MG TABLET (FP) GT SCH (12:28)
[2021-02-01] MEDS ORDERED: MAGNESIUM SULF 50% (8.12 MEQ/2 ML-1 GM VIAL) IVPB ONE (14:26)
[2021-02-01] MEDS ORDERED: POTASSIUM PHOSPHATE 15 MM in SODIUM CHLORIDE 100 ML IVPB ONE (15:00)
[2021-02-01] MEDS ORDERED: PT OWN MED DRAWER 7, Y5N ONE (20:41)
[2021-02-01] MEDS: CHLORHEXIDINE GLUCONATE 4% CLEANSER FOR DECOLONIZATION TP SCH (21:25)
[2021-02-02] MEDS ORDERED: MEROPENEM 1 GM VIAL (RESTRICTED TO ID) IVPB ONE ×4 (01:13→21:30)
[2021-02-02] MEDS ORDERED: DEXTROSE 5%-WATER 100 ML IVPB ONE ×4 (01:14→21:30)
[2021-02-02] MEDS: MEROPENEM 1 GM in DEXTROSE 5%-WATER 100 ML IVPB SCH ×3 (01:37→17:33)
[2021-02-02] MEDS: POTASSIUM CHLORIDE 10 MEQ in AMINO ACIDS 4.25%/D5W 1,000 ML IV SCH ×3 (01:37→17:41)
[2021-02-02 06:42] LABS: HEMATOCRIT 31.3 % (32.4-45.2); HEMOGLOBIN 10.3 GM/dL (10.7-15.3); MCH 31.1 pg (25.7-33.7); MCHC 33.1 g/dl (32.0-36.0); MEAN PLT VOLUME 8.4 fl (7.5-11.1); PLATELET COUNT 226 10^3/uL (134-434); RBC 3.33 M/mm3 (3.60-5.2); RDW 15.3 % (11.6-15.6); WHITE BLOOD COUNT 24.5 K/mm3 (4.0-10.0)
[2021-02-02 06:59] LABS: BLOOD UREA NITROGEN 22.8 mg/dL (7-18); CALCIUM 7.7 mg/dL (8.5-10.1); MAGNESIUM 2.1 mg/dL (1.8-2.4)
[2021-02-02 07:02] LABS: CREATININE 0.3 mg/dL (0.55-1.3)
[2021-02-02 07:03] LABS: PHOSPHOROUS 2.5 mg/dL (2.5-4.9)
[2021-02-02 07:04] LABS: BILIRUBIN,TOTAL 0.4 mg/dL (0.2-1); TOT PROT 4.5 g/dl (6.4-8.2)
[2021-02-02 09:35] LABS: ANISOCYTOSIS 1+; MACROCYTOSIS 1+; PLATELET ESTIMATE NORMAL
[2021-02-02] MEDS: PANTOPRAZOLE SODIUM 40 MG VIAL IVPUSH SCH (09:44)
[2021-02-02] MEDS: ENOXAPARIN NA (PORCINE) 40 MG/0.4 ML DISP.SYRIN SQ SCH (09:45)
[2021-02-02] MEDS: COLLAGENASE CLOSTRIDIUM HIST. 30 GRAMS TUBE TP SCH (09:45)
[2021-02-02] MEDS: LYTES/YERBA SANTA 60 ML SPRAY MM SCH ×2 (09:56→21:40)
[2021-02-02] MEDS: SERTRALINE HCL 50 MG TABLET (FP) GT SCH (10:00)
[2021-02-02] MEDS: MULTIVIT INJ. ADULT COMBO WITH VIT K 1 COMBO 10 ML VIAL IV SCH (10:00)
[2021-02-02] MEDS ORDERED: PT OWN MED DRAWER 7, Y5N ONE (15:32)
[2021-02-02] MEDS: CHLORHEXIDINE GLUCONATE 4% CLEANSER FOR DECOLONIZATION TP SCH (21:40)
[2021-02-03] MEDS: POTASSIUM CHLORIDE 10 MEQ in AMINO ACIDS 4.25%/D5W 1,000 ML IV SCH ×3 (01:08→22:01)
[2021-02-03] MEDS: MEROPENEM 1 GM in DEXTROSE 5%-WATER 100 ML IVPB SCH ×3 (01:10→17:01)
[2021-02-03 06:44] LABS: HEMATOCRIT 29.7 % (32.4-45.2); HEMOGLOBIN 9.8 GM/dL (10.7-15.3); MEAN CELL VOLUME 93.9 fl (80-96); MEAN PLT VOLUME 8.8 fl (7.5-11.1); PLATELET COUNT 276 10^3/uL (134-434); RBC 3.17 M/mm3 (3.60-5.2); RDW 15.5 % (11.6-15.6)
[2021-02-03 07:13] LABS: CALCIUM 7.8 mg/dL (8.5-10.1)
[2021-02-03 07:14] LABS: MAGNESIUM 1.6 mg/dL (1.8-2.4)
[2021-02-03 07:15] LABS: BLOOD UREA NITROGEN 18.9 mg/dL (7-18)
[2021-02-03 07:16] LABS: ALBUMIN 0.9 g/dl (3.4-5.0)
[2021-02-03 07:17] LABS: CREATININE 0.3 mg/dL (0.55-1.3)
[2021-02-03 07:18] LABS: PHOSPHOROUS 2.2 mg/dL (2.5-4.9)
[2021-02-03 07:19] LABS: TOT PROT 4.6 g/dl (6.4-8.2)
[2021-02-03 07:20] LABS: BILIRUBIN,TOTAL 0.4 mg/dL (0.2-1)
[2021-02-03 08:42] LABS: ANISOCYTOSIS 0; MACROCYTOSIS 0; PLATELET ESTIMATE NORMAL; ROULEAU 1+; TARGET CELLS 1+
[2021-02-03] MEDS ORDERED: MEROPENEM 1 GM VIAL (RESTRICTED TO ID) IVPB ONE ×3 (09:09→21:00)
[2021-02-03] MEDS ORDERED: DEXTROSE 5%-WATER 100 ML IVPB ONE ×3 (09:10→21:00)
[2021-02-03] MEDS: LYTES/YERBA SANTA 60 ML SPRAY MM SCH ×2 (09:14→22:01)
[2021-02-03] MEDS: ENOXAPARIN NA (PORCINE) 40 MG/0.4 ML DISP.SYRIN SQ SCH (09:14)
[2021-02-03] MEDS: PANTOPRAZOLE SODIUM 40 MG VIAL IVPUSH SCH (09:14)
[2021-02-03] MEDS: SERTRALINE HCL 50 MG TABLET (FP) GT SCH (09:15)
[2021-02-03] MEDS: COLLAGENASE CLOSTRIDIUM HIST. 30 GRAMS TUBE TP SCH (09:15)
[2021-02-03] MEDS: MULTIVIT INJ. ADULT COMBO WITH VIT K 1 COMBO 10 ML VIAL IV SCH (09:29)
[2021-02-03] MEDS ORDERED: morphine CARPU-JECT 2 MG/1 ML DISP.SYRIN IVPUSH PRN (10:24)
[2021-02-03] MEDS ORDERED: morphine SULFATE 4 MG/ML VIAL ONE (10:27)
[2021-02-03] MEDS ORDERED: MAGNESIUM SULF 50% (8.12 MEQ/2 ML-1 GM VIAL) IVPB ONE (12:58)
[2021-02-03] MEDS ORDERED: POTASSIUM PHOSPHATE 15 MM in DEXTROSE 5%-WATER - 100 ML IVPB ONE (12:58)
[2021-02-03] MEDS ORDERED: PT OWN MED DRAWER 7, Y5N ONE ×2 (16:34→21:00)
[2021-02-03] MEDS: morphine SULFATE 4 MG/ML VIAL IVPUSH PRN (17:24)
[2021-02-03] MEDS: CHLORHEXIDINE GLUCONATE 4% CLEANSER FOR DECOLONIZATION TP SCH (22:01)
[2021-02-04] MEDS: MEROPENEM 1 GM in DEXTROSE 5%-WATER 100 ML IVPB SCH ×4 (01:46→18:10)
[2021-02-04] MEDS: POTASSIUM CHLORIDE 10 MEQ in AMINO ACIDS 4.25%/D5W 1,000 ML IV SCH ×3 (02:31→13:29)
[2021-02-04] MEDS ORDERED: MEROPENEM 1 GM VIAL (RESTRICTED TO ID) IVPB ONE ×2 (08:54→17:59)
[2021-02-04] MEDS ORDERED: DEXTROSE 5%-WATER 100 ML IVPB ONE ×2 (08:54→18:00)
[2021-02-04] MEDS: morphine SULFATE 4 MG/ML VIAL IVPUSH PRN (09:11)
[2021-02-04] MEDS: PANTOPRAZOLE SODIUM 40 MG VIAL IVPUSH SCH ×2 (09:12→10:19)
[2021-02-04] MEDS: ENOXAPARIN NA (PORCINE) 40 MG/0.4 ML DISP.SYRIN SQ SCH ×2 (09:13→10:19)
[2021-02-04] MEDS: LYTES/YERBA SANTA 60 ML SPRAY MM SCH ×3 (09:13→23:09)
[2021-02-04] MEDS: COLLAGENASE CLOSTRIDIUM HIST. 30 GRAMS TUBE TP SCH ×2 (09:14→10:20)
[2021-02-04] MEDS: SERTRALINE HCL 50 MG TABLET (FP) GT SCH ×2 (09:15→10:20)
[2021-02-04] MEDS: MULTIVIT INJ. ADULT COMBO WITH VIT K 1 COMBO 10 ML VIAL IV SCH ×2 (09:54→10:19)
[2021-02-04 15:45] VITALS: BMI 21.0
[2021-02-04] MEDS ORDERED: FAT EMULSION/OLIVE/SOY (CLINOLIPID) 250 ML EMULSION IV SCH (22:00)
[2021-02-04] MEDS ORDERED: ACETAMINOPHEN 1000 MG/100 ML VIAL IVPB ONE (22:58)
[2021-02-04] MEDS: CHLORHEXIDINE GLUCONATE 4% CLEANSER FOR DECOLONIZATION TP SCH (23:09)
[2021-02-04] MEDS ORDERED: PT OWN MED DRAWER 7, Y5N ONE (23:12)
[2021-02-05] MEDS ORDERED: MEROPENEM 1 GM VIAL (RESTRICTED TO ID) IVPB ONE ×3 (01:07→17:09)
[2021-02-05] MEDS ORDERED: DEXTROSE 5%-WATER 100 ML IVPB ONE ×3 (01:08→17:10)
[2021-02-05] MEDS: MEROPENEM 1 GM in DEXTROSE 5%-WATER 100 ML IVPB SCH ×3 (01:12→17:18)
[2021-02-05] MEDS: POTASSIUM CHLORIDE 10 MEQ in AMINO ACIDS 4.25%/D5W 1,000 ML IV SCH ×3 (01:12→12:49)
[2021-02-05] MEDS: PANTOPRAZOLE SODIUM 40 MG VIAL IVPUSH SCH (09:18)
[2021-02-05] MEDS: ENOXAPARIN NA (PORCINE) 40 MG/0.4 ML DISP.SYRIN SQ SCH (09:18)
[2021-02-05] MEDS: LYTES/YERBA SANTA 60 ML SPRAY MM SCH ×2 (09:19→21:36)
[2021-02-05] MEDS: COLLAGENASE CLOSTRIDIUM HIST. 30 GRAMS TUBE TP SCH ×2 (09:19→09:21)
[2021-02-05] MEDS: SERTRALINE HCL 50 MG TABLET (FP) GT SCH (09:22)
[2021-02-05 09:25] LABS: CALCIUM 8.4 mg/dL (8.5-10.1)
[2021-02-05 09:26] LABS: ALBUMIN 0.8 g/dl (3.4-5.0); BLOOD UREA NITROGEN 17.6 mg/dL (7-18)
[2021-02-05 09:29] LABS: CREATININE 0.4 mg/dL (0.55-1.3)
[2021-02-05 09:30] LABS: BILIRUBIN,TOTAL 0.3 mg/dL (0.2-1); TOT PROT 5.1 g/dl (6.4-8.2)
[2021-02-05] MEDS: FAT EMUL/SOY/MCT/OLIV/FISH OIL 250 ML IV SCH ×2 (09:44→22:08)
[2021-02-05] MEDS: MULTIVIT INJ. ADULT COMBO WITH VIT K 1 COMBO 10 ML VIAL IV SCH (11:00)
[2021-02-05] MEDS: FLUCONAZOLE 400 MG/NS 200 ML IVPB SCH (11:43)
[2021-02-05] MEDS ORDERED: PT OWN MED DRAWER 7, Y5N ONE (12:00)
[2021-02-05] MEDS: ACETAMINOPHEN 1000 MG/100 ML VIAL IVPB PRN ×2 (12:03→18:31)
[2021-02-05] MEDS: morphine SULFATE 4 MG/ML VIAL IVPUSH PRN (12:10)
[2021-02-05] MEDS: CHLORHEXIDINE GLUCONATE 4% CLEANSER FOR DECOLONIZATION TP SCH (21:36)
[2021-02-06] MEDS: POTASSIUM CHLORIDE 10 MEQ in AMINO ACIDS 4.25%/D5W 1,000 ML IV SCH ×4 (01:21→15:21)
[2021-02-06] MEDS ORDERED: DEXTROSE 5%-WATER 100 ML IVPB ONE ×3 (01:22→16:46)
[2021-02-06] MEDS ORDERED: MEROPENEM 1 GM VIAL (RESTRICTED TO ID) IVPB ONE ×3 (01:22→16:46)
[2021-02-06] MEDS: MEROPENEM 1 GM in DEXTROSE 5%-WATER 100 ML IVPB SCH ×3 (01:28→17:05)
[2021-02-06] MEDS: FAT EMUL/SOY/MCT/OLIV/FISH OIL 250 ML IV SCH ×2 (03:53→23:05)
[2021-02-06] MEDS ORDERED: PT OWN MED DRAWER 7, Y5N ONE ×2 (03:54→09:48)
[2021-02-06] MEDS: ENOXAPARIN NA (PORCINE) 40 MG/0.4 ML DISP.SYRIN SQ SCH (10:03)
[2021-02-06] MEDS: PANTOPRAZOLE SODIUM 40 MG VIAL IVPUSH SCH (10:03)
[2021-02-06] MEDS: COLLAGENASE CLOSTRIDIUM HIST. 30 GRAMS TUBE TP SCH (10:59)
[2021-02-06] MEDS: MULTIVIT INJ. ADULT COMBO WITH VIT K 1 COMBO 10 ML VIAL IV SCH ×2 (10:59→15:21)
[2021-02-06] MEDS: SERTRALINE HCL 50 MG TABLET (FP) GT SCH (11:01)
[2021-02-06] MEDS: LYTES/YERBA SANTA 60 ML SPRAY MM SCH ×2 (11:22→21:20)
[2021-02-06] MEDS: FLUCONAZOLE 400 MG/NS 200 ML IVPB SCH (12:02)
[2021-02-06] MEDS ORDERED: ACETAMINOPHEN 1000 MG/100 ML VIAL IVPB PRN (13:46)
[2021-02-06 16:11] LABS: BASO % 1.1 % (0-2.0); EOS % 0.3 % (0-4.5); HEMATOCRIT 28.1 % (32.4-45.2); HEMOGLOBIN 9.3 GM/dL (10.7-15.3); LYMPH % 4.3 % (8-40); MCH 30.5 pg (25.7-33.7); MCHC 33.1 g/dl (32.0-36.0); MEAN CELL VOLUME 92.1 fl (80-96); NEUT % 88.3 % (42.8-82.8); PLATELET COUNT 529 10^3/uL (134-434); RBC 3.05 M/mm3 (3.60-5.2); RDW 15.4 % (11.6-15.6); WHITE BLOOD COUNT 22.4 K/mm3 (4.0-10.0)
[2021-02-06 16:30] LABS: ALBUMIN 0.9 g/dl (3.4-5.0); CALCIUM 7.7 mg/dL (8.5-10.1)
[2021-02-06 16:31] LABS: BLOOD UREA NITROGEN 15.6 mg/dL (7-18)
[2021-02-06 16:34] LABS: CREATININE 0.3 mg/dL (0.55-1.3)
[2021-02-06 16:35] LABS: BILIRUBIN,TOTAL 0.1 mg/dL (0.2-1); TOT PROT 5.1 g/dl (6.4-8.2)
[2021-02-06 17:10] LABS: PLATELET ESTIMATE INCREASED
[2021-02-06] MEDS ORDERED: IBUPROFEN 800 MG/8 ML IJ IVPB ONE (17:23)
[2021-02-07] MEDS: POTASSIUM CHLORIDE 10 MEQ in AMINO ACIDS 4.25%/D5W 1,000 ML IV SCH ×3 (00:27→17:38)
[2021-02-07] MEDS ORDERED: MEROPENEM 1 GM VIAL (RESTRICTED TO ID) IVPB ONE ×3 (01:08→16:20)
[2021-02-07] MEDS ORDERED: DEXTROSE 5%-WATER 100 ML IVPB ONE ×3 (01:08→16:20)
[2021-02-07] MEDS: MEROPENEM 1 GM in DEXTROSE 5%-WATER 100 ML IVPB SCH ×3 (01:17→17:08)
[2021-02-07 07:29] LABS: CALCIUM 7.9 mg/dL (8.5-10.1)
[2021-02-07 07:30] LABS: BLOOD UREA NITROGEN 15.8 mg/dL (7-18)
[2021-02-07 07:33] LABS: CREATININE 0.4 mg/dL (0.55-1.3)
[2021-02-07 07:43] LABS: HEMOGLOBIN 9.5 GM/dL (10.7-15.3); MCH 31.5 pg (25.7-33.7); MEAN CELL VOLUME 92.6 fl (80-96); MEAN PLT VOLUME 8.4 fl (7.5-11.1); PLATELET COUNT 601 10^3/uL (134-434); RBC 3.03 M/mm3 (3.60-5.2); RDW 15.6 % (11.6-15.6); WHITE BLOOD COUNT 18.7 K/mm3 (4.0-10.0)
[2021-02-07] MEDS: MULTIVIT INJ. ADULT COMBO WITH VIT K 1 COMBO 10 ML VIAL IV SCH ×2 (10:19→17:37)
[2021-02-07] MEDS: FLUCONAZOLE 400 MG/NS 200 ML IVPB SCH (10:19)
[2021-02-07] MEDS: PANTOPRAZOLE SODIUM 40 MG VIAL IVPUSH SCH (10:19)
[2021-02-07] MEDS: LYTES/YERBA SANTA 60 ML SPRAY MM SCH ×2 (10:20→22:00)
[2021-02-07] MEDS: ENOXAPARIN NA (PORCINE) 40 MG/0.4 ML DISP.SYRIN SQ SCH (10:20)
[2021-02-07] MEDS: SERTRALINE HCL 50 MG TABLET (FP) GT SCH (10:21)
[2021-02-07] MEDS: COLLAGENASE CLOSTRIDIUM HIST. 30 GRAMS TUBE TP SCH (10:30)
[2021-02-07 13:26] LABS: ANISOCYTOSIS 1+; MACROCYTOSIS 0; PLATELET ESTIMATE INCREASED; TARGET CELLS 1+; TEAR DROP CELLS 1+
[2021-02-07] MEDS ORDERED: ACETAMINOPHEN 1000 MG/100 ML VIAL IVPB PRN (15:59)
[2021-02-07] MEDS: FAT EMUL/SOY/MCT/OLIV/FISH OIL 250 ML IV SCH (21:59)
[2021-02-08] MEDS ORDERED: MEROPENEM 1 GM VIAL (RESTRICTED TO ID) IVPB ONE ×3 (01:04→17:24)
[2021-02-08] MEDS ORDERED: DEXTROSE 5%-WATER 100 ML IVPB ONE ×3 (01:04→17:24)
[2021-02-08] MEDS: POTASSIUM CHLORIDE 10 MEQ in AMINO ACIDS 4.25%/D5W 1,000 ML IV SCH ×3 (01:15→12:02)
[2021-02-08] MEDS: MEROPENEM 1 GM in DEXTROSE 5%-WATER 100 ML IVPB SCH ×3 (01:19→17:31)
[2021-02-08] MEDS: PANTOPRAZOLE SODIUM 40 MG VIAL IVPUSH SCH (09:08)
[2021-02-08] MEDS: ENOXAPARIN NA (PORCINE) 40 MG/0.4 ML DISP.SYRIN SQ SCH (09:08)
[2021-02-08] MEDS: LYTES/YERBA SANTA 60 ML SPRAY MM SCH ×2 (09:09→21:36)
[2021-02-08] MEDS: COLLAGENASE CLOSTRIDIUM HIST. 30 GRAMS TUBE TP SCH (09:09)
[2021-02-08] MEDS: SERTRALINE HCL 50 MG TABLET (FP) GT SCH (09:09)
[2021-02-08] MEDS: MULTIVIT INJ. ADULT COMBO WITH VIT K 1 COMBO 10 ML VIAL IV SCH ×2 (10:14→20:40)
[2021-02-08 11:08] LABS: BASO % 0.4 % (0-2.0); EOS % 0.6 % (0-4.5); HEMATOCRIT 23.7 % (32.4-45.2); HEMOGLOBIN 7.8 GM/dL (10.7-15.3); MCH 31.5 pg (25.7-33.7); MEAN CELL VOLUME 95.5 fl (80-96); MEAN PLT VOLUME 8.4 fl (7.5-11.1); MONO % 8.5 % (3.8-10.2); NEUT % 83.5 % (42.8-82.8); PLATELET COUNT 574 10^3/uL (134-434); RBC 2.48 M/mm3 (3.60-5.2); RDW 16.3 % (11.6-15.6); WHITE BLOOD COUNT 14.2 K/mm3 (4.0-10.0)
[2021-02-08] MEDS: FLUCONAZOLE 400 MG/NS 200 ML IVPB SCH (11:13)
[2021-02-08 11:24] LABS: CHLORIDE 102 mmol/L (98-107); SODIUM 130 mmol/L (136-145)
[2021-02-08 11:26] LABS: CALCIUM 7.3 mg/dL (8.5-10.1)
[2021-02-08 11:27] LABS: ANION GAP 4 MMOL/L (8-16); BLOOD UREA NITROGEN 13.7 mg/dL (7-18); CO2 24 mmol/L (21-32)
[2021-02-08 11:30] LABS: CREATININE 0.5 mg/dL (0.55-1.3)
[2021-02-08 11:32] LABS: GLUCOSE,RANDOM 452 mg/dL (74-106)
[2021-02-08] MEDS ORDERED: PT OWN MED DRAWER 7, Y5N ONE ×2 (17:37→20:38)
[2021-02-08] MEDS: POTASSIUM CHLORIDE 20 MEQ in AMINO ACIDS 4.25%/D5W 2,000 ML IV SCH (20:39)
[2021-02-08] MEDS: FAT EMUL/SOY/MCT/OLIV/FISH OIL 250 ML IV SCH (21:35)
[2021-02-09] MEDS ORDERED: DEXTROSE 5%-WATER 100 ML IVPB ONE ×3 (01:16→16:55)
[2021-02-09] MEDS ORDERED: MEROPENEM 1 GM VIAL (RESTRICTED TO ID) IVPB ONE ×3 (01:16→16:55)
[2021-02-09] MEDS: MEROPENEM 1 GM in DEXTROSE 5%-WATER 100 ML IVPB SCH ×3 (01:22→17:04)
[2021-02-09 07:41] LABS: BASO % 0.8 % (0-2.0); EOS % 0.5 % (0-4.5); HEMATOCRIT 26.8 % (32.4-45.2); HEMOGLOBIN 9.2 GM/dL (10.7-15.3); LYMPH % 9.7 % (8-40); MCH 31.3 pg (25.7-33.7); MCHC 34.3 g/dl (32.0-36.0); MEAN CELL VOLUME 91.3 fl (80-96); MEAN PLT VOLUME 8.2 fl (7.5-11.1); MONO % 9.9 % (3.8-10.2); NEUT % 79.1 % (42.8-82.8); PLATELET COUNT 670 10^3/uL (134-434); RBC 2.94 M/mm3 (3.60-5.2); RDW 15.5 % (11.6-15.6); WHITE BLOOD COUNT 13.1 K/mm3 (4.0-10.0)
[2021-02-09 08:09] LABS: BLOOD UREA NITROGEN 13.6 mg/dL (7-18)
[2021-02-09 08:12] LABS: BILIRUBIN,TOTAL 0.2 mg/dL (0.2-1); CREATININE 0.3 mg/dL (0.55-1.3)
[2021-02-09 08:13] LABS: TOT PROT 5.8 g/dl (6.4-8.2)
[2021-02-09 08:38] LABS: CALCIUM 8.4 mg/dL (8.5-10.1)
[2021-02-09] MEDS ORDERED: PT OWN MED DRAWER 7, Y5N ONE ×2 (10:44→20:22)
[2021-02-09] MEDS: FLUCONAZOLE 400 MG/NS 200 ML IVPB SCH (10:49)
[2021-02-09] MEDS: ENOXAPARIN NA (PORCINE) 40 MG/0.4 ML DISP.SYRIN SQ SCH (10:55)
[2021-02-09] MEDS: PANTOPRAZOLE SODIUM 40 MG VIAL IVPUSH SCH (10:55)
[2021-02-09] MEDS: COLLAGENASE CLOSTRIDIUM HIST. 30 GRAMS TUBE TP SCH (11:01)
[2021-02-09] MEDS: LYTES/YERBA SANTA 60 ML SPRAY MM SCH ×2 (11:01→22:12)
[2021-02-09] MEDS: SERTRALINE HCL 50 MG TABLET (FP) GT SCH (11:02)
[2021-02-09] MEDS: KCL 10 MEQ IVPB 10 MEQ/100 ML INFUS.BAG IVPB SCH ×4 (15:23→22:11)
[2021-02-09] MEDS: POTASSIUM CHLORIDE 20 MEQ in AMINO ACIDS 4.25%/D5W 2,000 ML IV SCH ×2 (16:51→22:10)
[2021-02-09] MEDS: MULTIVIT INJ. ADULT COMBO WITH VIT K 1 COMBO 10 ML VIAL IV SCH ×2 (16:51→22:11)
[2021-02-09] MEDS ORDERED: KCL 10 MEQ IVPB 10 MEQ/100 ML INFUS.BAG IVPB SCH (20:30)
[2021-02-09] MEDS: FAT EMULSION/OLIVE/SOY/PHOSPHO 250 ML IV SCH (21:36)
[2021-02-10] MEDS ORDERED: MEROPENEM 1 GM VIAL (RESTRICTED TO ID) IVPB ONE ×3 (01:25→16:59)
[2021-02-10] MEDS ORDERED: DEXTROSE 5%-WATER 100 ML IVPB ONE ×3 (01:25→16:59)
[2021-02-10] MEDS: MEROPENEM 1 GM in DEXTROSE 5%-WATER 100 ML IVPB SCH ×3 (01:26→17:32)
[2021-02-10 07:09] LABS: BASO % 0.6 % (0-2.0); EOS % 0.4 % (0-4.5); HEMOGLOBIN 9.8 GM/dL (10.7-15.3); LYMPH % 11.2 % (8-40); MCH 30.6 pg (25.7-33.7); MCHC 33.8 g/dl (32.0-36.0); MEAN CELL VOLUME 90.7 fl (80-96); MEAN PLT VOLUME 7.6 fl (7.5-11.1); MONO % 12.5 % (3.8-10.2); NEUT % 75.3 % (42.8-82.8); PLATELET COUNT 645 10^3/uL (134-434); RDW 15.6 % (11.6-15.6); WHITE BLOOD COUNT 11.2 K/mm3 (4.0-10.0)
[2021-02-10 07:17] LABS: CALCIUM 8.1 mg/dL (8.5-10.1)
[2021-02-10 07:18] LABS: ALBUMIN 1.1 g/dl (3.4-5.0); BLOOD UREA NITROGEN 13.8 mg/dL (7-18); MAGNESIUM 1.7 mg/dL (1.8-2.4)
[2021-02-10 07:21] LABS: CREATININE 0.4 mg/dL (0.55-1.3)
[2021-02-10 07:22] LABS: BILIRUBIN,TOTAL 0.2 mg/dL (0.2-1)
[2021-02-10] MEDS: COLLAGENASE CLOSTRIDIUM HIST. 30 GRAMS TUBE TP SCH (09:02)
[2021-02-10] MEDS: PANTOPRAZOLE SODIUM 40 MG VIAL IVPUSH SCH (09:08)
[2021-02-10] MEDS: ENOXAPARIN NA (PORCINE) 40 MG/0.4 ML DISP.SYRIN SQ SCH (09:10)
[2021-02-10] MEDS: FLUCONAZOLE 400 MG/NS 200 ML IVPB SCH (09:57)
[2021-02-10] MEDS: LYTES/YERBA SANTA 60 ML SPRAY MM SCH ×2 (10:39→22:44)
[2021-02-10] MEDS ORDERED: MAGNESIUM SULF 50% (8.12 MEQ/2 ML-1 GM VIAL) IVPB ONE (10:50)
[2021-02-10] MEDS: SERTRALINE HCL 50 MG TABLET (FP) GT SCH (11:02)
[2021-02-10] MEDS ORDERED: PT OWN MED DRAWER 7, Y5N ONE ×2 (13:07→17:53)
[2021-02-10] MEDS: MULTIVIT INJ. ADULT COMBO WITH VIT K 1 COMBO 10 ML VIAL IV SCH (22:27)
[2021-02-10] MEDS: POTASSIUM CHLORIDE 20 MEQ in AMINO ACIDS 4.25%/D5W 2,000 ML IV SCH (22:27)
[2021-02-10] MEDS: FAT EMULSION/OLIVE/SOY/PHOSPHO 250 ML IV SCH (22:40)
[2021-02-11] MEDS ORDERED: MEROPENEM 1 GM VIAL (RESTRICTED TO ID) IVPB ONE ×4 (02:03→20:34)
[2021-02-11] MEDS ORDERED: DEXTROSE 5%-WATER 100 ML IVPB ONE ×4 (02:03→20:34)
[2021-02-11] MEDS: MEROPENEM 1 GM in DEXTROSE 5%-WATER 100 ML IVPB SCH ×3 (02:09→17:24)
[2021-02-11] MEDS ORDERED: PT OWN MED DRAWER 7, Y5N ONE ×2 (09:38→20:35)
[2021-02-11] MEDS: PANTOPRAZOLE SODIUM 40 MG VIAL IVPUSH SCH (09:53)
[2021-02-11] MEDS: COLLAGENASE CLOSTRIDIUM HIST. 30 GRAMS TUBE TP SCH (09:54)
[2021-02-11] MEDS: SERTRALINE HCL 50 MG TABLET (FP) GT SCH (09:54)
[2021-02-11] MEDS: LYTES/YERBA SANTA 60 ML SPRAY MM SCH ×2 (09:54→22:13)
[2021-02-11] MEDS: FLUCONAZOLE 400 MG/NS 200 ML IVPB SCH (11:11)
[2021-02-11] MEDS: ENOXAPARIN NA (PORCINE) 40 MG/0.4 ML DISP.SYRIN SQ SCH (11:11)
[2021-02-11] MEDS ORDERED: ACETAMINOPHEN 650 MG/20.3 ML ORAL SOLUTION (CUPS) GT PRN (15:40)
[2021-02-11] MEDS: POTASSIUM CHLORIDE 20 MEQ in AMINO ACIDS 4.25%/D5W 2,000 ML IV SCH (18:34)
[2021-02-11] MEDS: MULTIVIT INJ. ADULT COMBO WITH VIT K 1 COMBO 10 ML VIAL IV SCH (18:35)
[2021-02-11] MEDS: FAT EMULSION/OLIVE/SOY/PHOSPHO 250 ML IV SCH (22:13)
[2021-02-11] MEDS ORDERED: ACETAMINOPHEN 1000 MG/100 ML VIAL IVPB ONE (23:40)
[2021-02-12] MEDS: MEROPENEM 1 GM in DEXTROSE 5%-WATER 100 ML IVPB SCH ×3 (01:33→17:21)
[2021-02-12] MEDS ORDERED: MEROPENEM 1 GM VIAL (RESTRICTED TO ID) IVPB ONE ×2 (10:10→17:04)
[2021-02-12] MEDS ORDERED: PT OWN MED DRAWER 7, Y5N ONE ×2 (10:11→21:14)
[2021-02-12] MEDS ORDERED: DEXTROSE 5%-WATER 100 ML IVPB ONE ×2 (10:11→17:04)
[2021-02-12] MEDS: FLUCONAZOLE 400 MG/NS 200 ML IVPB SCH (10:39)
[2021-02-12] MEDS: ENOXAPARIN NA (PORCINE) 40 MG/0.4 ML DISP.SYRIN SQ SCH (10:41)
[2021-02-12] MEDS: SERTRALINE HCL 50 MG TABLET (FP) GT SCH (10:42)
[2021-02-12] MEDS: LYTES/YERBA SANTA 60 ML SPRAY MM SCH ×2 (10:42→21:24)
[2021-02-12] MEDS: PANTOPRAZOLE SODIUM 40 MG VIAL IVPUSH SCH (10:42)
[2021-02-12] MEDS: COLLAGENASE CLOSTRIDIUM HIST. 30 GRAMS TUBE TP SCH (10:42)
[2021-02-12 12:50] LABS: ALBUMIN 1.1 g/dl (3.4-5.0); BLOOD UREA NITROGEN 11.8 mg/dL (7-18)
[2021-02-12 12:54] LABS: CREATININE 0.4 mg/dL (0.55-1.3)
[2021-02-12 12:55] LABS: BILIRUBIN,TOTAL 0.2 mg/dL (0.2-1); TOT PROT 6.3 g/dl (6.4-8.2)
[2021-02-12] MEDS: ACETAMINOPHEN 1000 MG/100 ML VIAL IVPB PRN (17:21)
[2021-02-12] MEDS: MULTIVIT INJ. ADULT COMBO WITH VIT K 1 COMBO 10 ML VIAL IV SCH (17:49)
[2021-02-12] MEDS: POTASSIUM CHLORIDE 20 MEQ in AMINO ACIDS 4.25%/D5W 2,000 ML IV SCH (17:50)
[2021-02-12] MEDS: FAT EMULSION/OLIVE/SOY/PHOSPHO 250 ML IV SCH (21:23)
[2021-02-13] MEDS ORDERED: MEROPENEM 1 GM VIAL (RESTRICTED TO ID) IVPB ONE ×3 (00:57→18:17)
[2021-02-13] MEDS ORDERED: DEXTROSE 5%-WATER 100 ML IVPB ONE ×3 (00:57→18:17)
[2021-02-13] MEDS: MEROPENEM 1 GM in DEXTROSE 5%-WATER 100 ML IVPB SCH ×3 (01:11→18:32)
[2021-02-13] MEDS: ACETAMINOPHEN 1000 MG/100 ML VIAL IVPB PRN ×2 (06:24→21:19)
[2021-02-13 07:37] LABS: BASO % 0.4 % (0-2.0); CALCIUM 7.8 mg/dL (8.5-10.1); EOS % 0.7 % (0-4.5); HEMATOCRIT 28.4 % (32.4-45.2); HEMOGLOBIN 9.6 GM/dL (10.7-15.3); LYMPH % 12.9 % (8-40); MCH 30.7 pg (25.7-33.7); MCHC 33.7 g/dl (32.0-36.0); MEAN CELL VOLUME 90.9 fl (80-96); MEAN PLT VOLUME 7.5 fl (7.5-11.1); MONO % 12.8 % (3.8-10.2); NEUT % 73.2 % (42.8-82.8); PLATELET COUNT 665 10^3/uL (134-434); RBC 3.12 M/mm3 (3.60-5.2); RDW 15.7 % (11.6-15.6); WHITE BLOOD COUNT 9.3 K/mm3 (4.0-10.0)
[2021-02-13 07:38] LABS: BLOOD UREA NITROGEN 11.5 mg/dL (7-18)
[2021-02-13 07:41] LABS: CREATININE 0.3 mg/dL (0.55-1.3)
[2021-02-13 07:42] LABS: BILIRUBIN,TOTAL 0.2 mg/dL (0.2-1)
[2021-02-13 07:43] LABS: TOT PROT 6.2 g/dl (6.4-8.2)
[2021-02-13] MEDS ORDERED: PT OWN MED DRAWER 7, Y5N ONE ×2 (10:37→21:13)
[2021-02-13] MEDS: ENOXAPARIN NA (PORCINE) 40 MG/0.4 ML DISP.SYRIN SQ SCH (10:56)
[2021-02-13] MEDS: PANTOPRAZOLE SODIUM 40 MG VIAL IVPUSH SCH (10:56)
[2021-02-13] MEDS: LYTES/YERBA SANTA 60 ML SPRAY MM SCH ×2 (10:56→21:19)
[2021-02-13] MEDS: COLLAGENASE CLOSTRIDIUM HIST. 30 GRAMS TUBE TP SCH (10:56)
[2021-02-13] MEDS: FLUCONAZOLE 400 MG/NS 200 ML IVPB SCH (10:56)
[2021-02-13] MEDS: SERTRALINE HCL 50 MG TABLET (FP) GT SCH (10:57)
[2021-02-13] MEDS: POTASSIUM CHLORIDE 20 MEQ in AMINO ACIDS 4.25%/D5W 2,000 ML IV SCH (19:46)
[2021-02-13] MEDS: MULTIVIT INJ. ADULT COMBO WITH VIT K 1 COMBO 10 ML VIAL IV SCH (19:46)
[2021-02-13] MEDS: FAT EMULSION/OLIVE/SOY/PHOSPHO 250 ML IV SCH (21:19)
[2021-02-14] MEDS ORDERED: MEROPENEM 1 GM VIAL (RESTRICTED TO ID) IVPB ONE ×3 (01:01→18:03)
[2021-02-14] MEDS ORDERED: DEXTROSE 5%-WATER 100 ML IVPB ONE ×3 (01:01→18:03)
[2021-02-14] MEDS: MEROPENEM 1 GM in DEXTROSE 5%-WATER 100 ML IVPB SCH ×3 (01:10→18:08)
[2021-02-14] MEDS ORDERED: PT OWN MED DRAWER 7, Y5N ONE ×5 (08:54→21:57)
[2021-02-14] MEDS: PANTOPRAZOLE SODIUM 40 MG VIAL IVPUSH SCH (09:02)
[2021-02-14] MEDS: LYTES/YERBA SANTA 60 ML SPRAY MM SCH ×2 (09:03→22:43)
[2021-02-14] MEDS: ENOXAPARIN NA (PORCINE) 40 MG/0.4 ML DISP.SYRIN SQ SCH (09:03)
[2021-02-14] MEDS: SERTRALINE HCL 50 MG TABLET (FP) GT SCH (09:04)
[2021-02-14] MEDS: COLLAGENASE CLOSTRIDIUM HIST. 30 GRAMS TUBE TP SCH (09:04)
[2021-02-14 10:46] LABS: BLOOD UREA NITROGEN 11.6 mg/dL (7-18)
[2021-02-14 10:47] LABS: MAGNESIUM 1.8 mg/dL (1.8-2.4)
[2021-02-14 10:49] LABS: CREATININE 0.3 mg/dL (0.55-1.3)
[2021-02-14 10:50] LABS: PHOSPHOROUS 1.8 mg/dL (2.5-4.9)
[2021-02-14] MEDS ORDERED: SODIUM PHOSPHATE - 15 MM in DEXTROSE 5%-WATER - 250 ML IVPB ONE (10:54)
[2021-02-14] MEDS: FLUCONAZOLE 400 MG/NS 200 ML IVPB SCH (11:03)
[2021-02-14] MEDS: ACETAMINOPHEN 1000 MG/100 ML VIAL IVPB PRN (11:10)
[2021-02-14] MEDS ORDERED: ACETAMINOPHEN 1000 MG/100 ML VIAL IVPB PRN (14:18)
[2021-02-14] MEDS: POTASSIUM CHLORIDE 20 MEQ in AMINO ACIDS 4.25%/D5W 2,000 ML IV SCH (16:52)
[2021-02-14] MEDS: MULTIVIT INJ. ADULT COMBO WITH VIT K 1 COMBO 10 ML VIAL IV SCH (16:52)
[2021-02-14] MEDS: FAT EMULSION/OLIVE/SOY/PHOSPHO 250 ML IV SCH (22:31)
[2021-02-15] MEDS ORDERED: DEXTROSE 5%-WATER 100 ML IVPB ONE ×3 (01:04→17:24)
[2021-02-15] MEDS ORDERED: MEROPENEM 1 GM VIAL (RESTRICTED TO ID) IVPB ONE ×3 (01:04→17:23)
[2021-02-15] MEDS: MEROPENEM 1 GM in DEXTROSE 5%-WATER 100 ML IVPB SCH ×3 (02:25→17:27)
[2021-02-15 08:17] LABS: CALCIUM 8.1 mg/dL (8.5-10.1)
[2021-02-15 08:18] LABS: BLOOD UREA NITROGEN 13.1 mg/dL (7-18)
[2021-02-15 08:20] LABS: CREATININE 0.3 mg/dL (0.55-1.3)
[2021-02-15 08:45] LABS: MAGNESIUM 1.7 mg/dL (1.8-2.4)
[2021-02-15] MEDS ORDERED: MAGNESIUM 2GM/50ML STERILE WATER IVPB IVPB ONE (08:53)
[2021-02-15] MEDS: KCL 10 MEQ IVPB 10 MEQ/100 ML INFUS.BAG IVPB SCH ×3 (09:43→12:05)
[2021-02-15] MEDS: PANTOPRAZOLE SODIUM 40 MG VIAL IVPUSH SCH (09:44)
[2021-02-15] MEDS: SERTRALINE HCL 50 MG TABLET (FP) GT SCH (10:40)
[2021-02-15] MEDS: ENOXAPARIN NA (PORCINE) 40 MG/0.4 ML DISP.SYRIN SQ SCH (10:49)
[2021-02-15] MEDS: LYTES/YERBA SANTA 60 ML SPRAY MM SCH ×2 (10:50→21:46)
[2021-02-15] MEDS ORDERED: PT OWN MED DRAWER 7, Y5N ONE ×3 (11:29→20:12)
[2021-02-15] MEDS: COLLAGENASE CLOSTRIDIUM HIST. 30 GRAMS TUBE TP SCH (13:31)
[2021-02-15] MEDS: FLUCONAZOLE 400 MG/NS 200 ML IVPB SCH (13:31)
[2021-02-15] MEDS: POTASSIUM CHLORIDE 20 MEQ in AMINO ACIDS 4.25%/D5W 2,000 ML IV SCH (20:08)
[2021-02-15] MEDS: MULTIVIT INJ. ADULT COMBO WITH VIT K 1 COMBO 10 ML VIAL IV SCH (20:08)
[2021-02-15] MEDS: FAT EMULSION/OLIVE/SOY/PHOSPHO 250 ML IV SCH (21:46)
[2021-02-16] MEDS ORDERED: MEROPENEM 1 GM VIAL (RESTRICTED TO ID) IVPB ONE ×3 (01:27→16:46)
[2021-02-16] MEDS ORDERED: DEXTROSE 5%-WATER 100 ML IVPB ONE ×3 (01:27→16:46)
[2021-02-16] MEDS: MEROPENEM 1 GM in DEXTROSE 5%-WATER 100 ML IVPB SCH ×3 (02:43→17:21)
[2021-02-16 07:14] LABS: ALBUMIN 1.1 g/dl (3.4-5.0); BLOOD UREA NITROGEN 12.9 mg/dL (7-18)
[2021-02-16 07:17] LABS: CREATININE 0.4 mg/dL (0.55-1.3)
[2021-02-16 07:19] LABS: BILIRUBIN,TOTAL 0.2 mg/dL (0.2-1); TOT PROT 6.8 g/dl (6.4-8.2)
[2021-02-16 07:22] LABS: BASO % 0.9 % (0-2.0); EOS % 1.5 % (0-4.5); HEMATOCRIT 28.1 % (32.4-45.2); HEMOGLOBIN 9.5 GM/dL (10.7-15.3); LYMPH % 12.7 % (8-40); MCH 30.5 pg (25.7-33.7); MCHC 33.9 g/dl (32.0-36.0); MEAN PLT VOLUME 8.4 fl (7.5-11.1); NEUT % 73.9 % (42.8-82.8); PLATELET COUNT 393 10^3/uL (134-434); RBC 3.12 M/mm3 (3.60-5.2); RDW 15.9 % (11.6-15.6); WHITE BLOOD COUNT 10.6 K/mm3 (4.0-10.0)
[2021-02-16] MEDS: FLUCONAZOLE 400 MG/NS 200 ML IVPB SCH (09:58)
[2021-02-16] MEDS: PANTOPRAZOLE SODIUM 40 MG VIAL IVPUSH SCH (09:59)
[2021-02-16] MEDS: SERTRALINE HCL 50 MG TABLET (FP) GT SCH ×2 (09:59→13:58)
[2021-02-16] MEDS: LYTES/YERBA SANTA 60 ML SPRAY MM SCH ×2 (10:00→21:35)
[2021-02-16] MEDS: COLLAGENASE CLOSTRIDIUM HIST. 30 GRAMS TUBE TP SCH (10:00)
[2021-02-16] MEDS: ENOXAPARIN NA (PORCINE) 40 MG/0.4 ML DISP.SYRIN SQ SCH (10:00)
[2021-02-16 10:48] LABS: CHOLESTEROL 68 mg/dL (50-200); HDL CHOLESTEROL 12 mg/dL (40-60); LDL CHOLESTEROL (ONLY DFH) 31 mg/dl (5-100); TRIGLYCERIDES 125 mg/dL (0-150)
[2021-02-16] MEDS ORDERED: SODIUM PHOSPHATE - 20 MM in SODIUM CHLORIDE 250 ML IVPB ONE (11:00)
[2021-02-16] MEDS ORDERED: ACETAMINOPHEN 1000 MG/100 ML VIAL IVPB ONE (17:37)
[2021-02-16] MEDS ORDERED: PT OWN MED DRAWER 7, Y5N ONE ×2 (18:19→21:18)
[2021-02-16] MEDS: FAT EMULSION/OLIVE/SOY/PHOSPHO 250 ML IV SCH (21:36)
[2021-02-16] MEDS: POTASSIUM CHLORIDE 20 MEQ in AMINO ACIDS 4.25%/D5W 2,000 ML IV SCH (23:54)
[2021-02-16] MEDS: MULTIVIT INJ. ADULT COMBO WITH VIT K 1 COMBO 10 ML VIAL IV SCH (23:55)
[2021-02-17] MEDS ORDERED: MEROPENEM 1 GM VIAL (RESTRICTED TO ID) IVPB ONE ×3 (01:12→17:11)
[2021-02-17] MEDS ORDERED: DEXTROSE 5%-WATER 100 ML IVPB ONE ×3 (01:12→17:11)
[2021-02-17] MEDS: MEROPENEM 1 GM in DEXTROSE 5%-WATER 100 ML IVPB SCH ×3 (01:17→17:13)
[2021-02-17 07:23] LABS: BLOOD UREA NITROGEN 12.3 mg/dL (7-18); CALCIUM 7.7 mg/dL (8.5-10.1); MAGNESIUM 1.9 mg/dL (1.8-2.4)
[2021-02-17 07:26] LABS: CREATININE 0.3 mg/dL (0.55-1.3); PHOSPHOROUS 2.3 mg/dL (2.5-4.9)
[2021-02-17 07:28] LABS: BILIRUBIN,TOTAL 0.4 mg/dL (0.2-1); TOT PROT 6.1 g/dl (6.4-8.2)
[2021-02-17] MEDS ORDERED: PT OWN MED DRAWER 7, Y5N ONE ×2 (08:55→21:11)
[2021-02-17] MEDS: LYTES/YERBA SANTA 60 ML SPRAY MM SCH ×2 (09:02→21:25)
[2021-02-17] MEDS: SERTRALINE HCL 50 MG TABLET (FP) GT SCH (09:02)
[2021-02-17] MEDS: COLLAGENASE CLOSTRIDIUM HIST. 30 GRAMS TUBE TP SCH (09:02)
[2021-02-17] MEDS: ENOXAPARIN NA (PORCINE) 40 MG/0.4 ML DISP.SYRIN SQ SCH (09:02)
[2021-02-17] MEDS: PANTOPRAZOLE SODIUM 40 MG VIAL IVPUSH SCH (09:02)
[2021-02-17] MEDS: FLUCONAZOLE 400 MG/NS 200 ML IVPB SCH (10:45)
[2021-02-17] MEDS: MULTIVIT INJ. ADULT COMBO WITH VIT K 1 COMBO 10 ML VIAL IV SCH (17:50)
[2021-02-17] MEDS: POTASSIUM CHLORIDE 20 MEQ in AMINO ACIDS 4.25%/D5W 2,000 ML IV SCH (18:06)
[2021-02-17] MEDS: FAT EMULSION/OLIVE/SOY/PHOSPHO 250 ML IV SCH (21:25)
[2021-02-18] MEDS: POTASSIUM CHLORIDE 20 MEQ in AMINO ACIDS 4.25%/D5W 2,000 ML IV SCH ×2 (00:35→22:24)
[2021-02-18] MEDS ORDERED: MEROPENEM 1 GM VIAL (RESTRICTED TO ID) IVPB ONE ×3 (00:55→18:05)
[2021-02-18] MEDS ORDERED: DEXTROSE 5%-WATER 100 ML IVPB ONE ×3 (00:55→18:05)
[2021-02-18] MEDS: MEROPENEM 1 GM in DEXTROSE 5%-WATER 100 ML IVPB SCH ×3 (01:00→18:10)
[2021-02-18] MEDS ORDERED: PT OWN MED DRAWER 7, Y5N ONE ×4 (10:06→21:33)
[2021-02-18] MEDS: PANTOPRAZOLE SODIUM 40 MG VIAL IVPUSH SCH (10:11)
[2021-02-18] MEDS: ENOXAPARIN NA (PORCINE) 40 MG/0.4 ML DISP.SYRIN SQ SCH (10:11)
[2021-02-18] MEDS: SERTRALINE HCL 50 MG TABLET (FP) GT SCH ×2 (10:12→10:20)
[2021-02-18] MEDS: LYTES/YERBA SANTA 60 ML SPRAY MM SCH ×2 (10:13→22:25)
[2021-02-18] MEDS: COLLAGENASE CLOSTRIDIUM HIST. 30 GRAMS TUBE TP SCH (10:13)
[2021-02-18] MEDS: FLUCONAZOLE 400 MG/NS 200 ML IVPB SCH (10:30)
[2021-02-18] MEDS: MULTIVIT INJ. ADULT COMBO WITH VIT K 1 COMBO 10 ML VIAL IV SCH (22:24)
[2021-02-18] MEDS: FAT EMULSION/OLIVE/SOY/PHOSPHO 250 ML IV SCH (22:24)
[2021-02-19] MEDS ORDERED: MEROPENEM 1 GM VIAL (RESTRICTED TO ID) IVPB ONE ×2 (01:18→10:23)
[2021-02-19] MEDS ORDERED: DEXTROSE 5%-WATER 100 ML IVPB ONE ×2 (01:19→10:24)
[2021-02-19] MEDS: MEROPENEM 1 GM in DEXTROSE 5%-WATER 100 ML IVPB SCH ×2 (01:31→10:26)
[2021-02-19 09:51] LABS: CALCIUM 8.1 mg/dL (8.5-10.1)
[2021-02-19 09:52] LABS: ALBUMIN 1.2 g/dl (3.4-5.0); BLOOD UREA NITROGEN 12.8 mg/dL (7-18); MAGNESIUM 1.8 mg/dL (1.8-2.4)
[2021-02-19 09:54] LABS: CREATININE 0.3 mg/dL (0.55-1.3); PHOSPHOROUS 1.9 mg/dL (2.5-4.9)
[2021-02-19 09:56] LABS: BILIRUBIN,TOTAL 0.2 mg/dL (0.2-1); TOT PROT 7.3 g/dl (6.4-8.2)
[2021-02-19] MEDS: PANTOPRAZOLE SODIUM 40 MG VIAL IVPUSH SCH (10:28)
[2021-02-19] MEDS: SERTRALINE HCL 50 MG TABLET (FP) GT SCH (10:30)
[2021-02-19] MEDS ORDERED: PT OWN MED DRAWER 7, Y5N ONE (10:39)
[2021-02-19] MEDS: LYTES/YERBA SANTA 60 ML SPRAY MM SCH ×2 (10:40→21:59)
[2021-02-19] MEDS: FLUCONAZOLE 400 MG/NS 200 ML IVPB SCH (10:40)
[2021-02-19] MEDS: COLLAGENASE CLOSTRIDIUM HIST. 30 GRAMS TUBE TP SCH (11:40)
[2021-02-19] MEDS ORDERED: POTASSIUM PHOSPHATE 30 MM in SODIUM CHLORIDE 500 ML IVPB ONE (12:15)
[2021-02-19] MEDS: CEFTAZIDIME/AVIBACTAM 2.5 GM in DEXTROSE 5%-WATER - 250 ML IVPB SCH (17:13)
[2021-02-19] MEDS: POTASSIUM CHLORIDE 20 MEQ in AMINO ACIDS 4.25%/D5W 2,000 ML IV SCH ×2 (18:21→21:59)
[2021-02-19] MEDS: MULTIVIT INJ. ADULT COMBO WITH VIT K 1 COMBO 10 ML VIAL IV SCH (21:58)
[2021-02-19] MEDS: FAT EMULSION/OLIVE/SOY/PHOSPHO 250 ML IV SCH (21:58)
[2021-02-20] MEDS: CEFTAZIDIME/AVIBACTAM 2.5 GM in DEXTROSE 5%-WATER - 250 ML IVPB SCH ×3 (02:36→18:31)
[2021-02-20] MEDS: FLUCONAZOLE 100 MG/NS 50 ML IVPB SCH (09:33)
[2021-02-20] MEDS: PANTOPRAZOLE SODIUM 40 MG VIAL IVPUSH SCH (09:34)
[2021-02-20] MEDS: LYTES/YERBA SANTA 60 ML SPRAY MM SCH ×2 (09:34→21:58)
[2021-02-20] MEDS ORDERED: FLUCONAZOLE 100 MG/D5W 50 ML IVPB SCH (10:00)
[2021-02-20] MEDS: SERTRALINE HCL 50 MG TABLET (FP) GT SCH (10:53)
[2021-02-20] MEDS: COLLAGENASE CLOSTRIDIUM HIST. 30 GRAMS TUBE TP SCH (11:32)
[2021-02-20] MEDS ORDERED: PT OWN MED DRAWER 7, Y5N ONE ×2 (18:21→21:44)
[2021-02-20] MEDS: POTASSIUM CHLORIDE 20 MEQ in AMINO ACIDS 4.25%/D5W 2,000 ML IV SCH (18:31)
[2021-02-20] MEDS: MULTIVIT INJ. ADULT COMBO WITH VIT K 1 COMBO 10 ML VIAL IV SCH (18:32)
[2021-02-20] MEDS: FAT EMULSION/OLIVE/SOY/PHOSPHO 250 ML IV SCH (22:56)
[2021-02-21] MEDS: POTASSIUM CHLORIDE 20 MEQ in AMINO ACIDS 4.25%/D5W 2,000 ML IV SCH ×2 (01:00→17:40)
[2021-02-21] MEDS ORDERED: PT OWN MED DRAWER 7, Y5N ONE ×4 (02:01→16:42)
[2021-02-21] MEDS: CEFTAZIDIME/AVIBACTAM 2.5 GM in DEXTROSE 5%-WATER - 250 ML IVPB SCH ×3 (02:04→17:40)
[2021-02-21] MEDS: COLLAGENASE CLOSTRIDIUM HIST. 30 GRAMS TUBE TP SCH (09:55)
[2021-02-21] MEDS: LYTES/YERBA SANTA 60 ML SPRAY MM SCH ×2 (09:55→21:58)
[2021-02-21] MEDS: SERTRALINE HCL 50 MG TABLET (FP) GT SCH (09:55)
[2021-02-21] MEDS: PANTOPRAZOLE SODIUM 40 MG VIAL IVPUSH SCH (09:55)
[2021-02-21] MEDS: FLUCONAZOLE 100 MG/NS 50 ML IVPB SCH (11:39)
[2021-02-21] MEDS: MULTIVIT INJ. ADULT COMBO WITH VIT K 1 COMBO 10 ML VIAL IV SCH (17:40)
[2021-02-21] MEDS: FAT EMULSION/OLIVE/SOY/PHOSPHO 250 ML IV SCH (22:01)
[2021-02-22] MEDS ORDERED: PT OWN MED DRAWER 7, Y5N ONE ×4 (01:44→20:12)
[2021-02-22] MEDS: CEFTAZIDIME/AVIBACTAM 2.5 GM in DEXTROSE 5%-WATER - 250 ML IVPB SCH ×3 (02:52→20:04)
[2021-02-22] MEDS: FLUCONAZOLE 100 MG/NS 50 ML IVPB SCH (10:36)
[2021-02-22] MEDS: PANTOPRAZOLE SODIUM 40 MG VIAL IVPUSH SCH (10:37)
[2021-02-22] MEDS: LYTES/YERBA SANTA 60 ML SPRAY MM SCH ×2 (10:38→22:18)
[2021-02-22] MEDS: COLLAGENASE CLOSTRIDIUM HIST. 30 GRAMS TUBE TP SCH (10:38)
[2021-02-22] MEDS: SERTRALINE HCL 50 MG TABLET (FP) GT SCH (11:37)
[2021-02-22] MEDS ORDERED: AMINO ACIDS 4.25%/D5W 1,000 ML IV SCH (18:00)
[2021-02-22] MEDS: MULTIVIT INJ. ADULT COMBO WITH VIT K 1 COMBO 10 ML VIAL IV SCH (22:16)
[2021-02-22] MEDS: FAT EMULSION/OLIVE/SOY/PHOSPHO 250 ML IV SCH (22:17)
[2021-02-22] MEDS: POTASSIUM CHLORIDE 20 MEQ in AMINO ACIDS 4.25%/D5W 1,000 ML IV SCH (22:18)
[2021-02-23] MEDS ORDERED: PT OWN MED DRAWER 7, Y5N ONE ×6 (01:28→22:52)
[2021-02-23] MEDS: CEFTAZIDIME/AVIBACTAM 2.5 GM in DEXTROSE 5%-WATER - 250 ML IVPB SCH ×3 (02:51→18:29)
[2021-02-23] MEDS: POTASSIUM CHLORIDE 20 MEQ in AMINO ACIDS 4.25%/D5W 1,000 ML IV SCH (05:32)
[2021-02-23 09:26] LABS: BLOOD UREA NITROGEN 30.6 mg/dL (7-18)
[2021-02-23 09:29] LABS: CREATININE 1.3 mg/dL (0.55-1.3); PHOSPHOROUS 2.1 mg/dL (2.5-4.9)
[2021-02-23 09:30] LABS: BILIRUBIN,TOTAL 0.3 mg/dL (0.2-1)
[2021-02-23 09:31] LABS: TOT PROT 5.7 g/dl (6.4-8.2)
[2021-02-23 09:32] LABS: ALBUMIN 2.5 g/dl (3.4-5.0)
[2021-02-23] MEDS: PANTOPRAZOLE SODIUM 40 MG VIAL IVPUSH SCH (10:52)
[2021-02-23] MEDS: LYTES/YERBA SANTA 60 ML SPRAY MM SCH ×2 (10:52→22:55)
[2021-02-23] MEDS: COLLAGENASE CLOSTRIDIUM HIST. 30 GRAMS TUBE TP SCH (10:53)
[2021-02-23] MEDS: FLUCONAZOLE 100 MG/NS 50 ML IVPB SCH (10:53)
[2021-02-23] MEDS: SERTRALINE HCL 50 MG TABLET (FP) GT SCH (10:57)
[2021-02-23] MEDS ORDERED: SODIUM CHLORIDE 0.45% 1,000 ML IV SCH (12:45)
[2021-02-23] MEDS: POTASSIUM CHLORIDE 40 MEQ in AMINO ACIDS 4.25%/D5W 2,000 ML IV SCH (12:52)
[2021-02-23] MEDS ORDERED: POTASSIUM PHOSPHATE 15 MM in DEXTROSE 5%-WATER - 250 ML IVPB ONE (13:00)
[2021-02-23] MEDS: MULTIVIT INJ. ADULT COMBO WITH VIT K 1 COMBO 10 ML VIAL IV SCH (17:46)
[2021-02-23] MEDS: FAT EMULSION/OLIVE/SOY/PHOSPHO 250 ML IV SCH (22:55)
[2021-02-24] MEDS: CEFTAZIDIME/AVIBACTAM 2.5 GM in DEXTROSE 5%-WATER - 250 ML IVPB SCH ×3 (03:10→17:06)
[2021-02-24 07:45] LABS: HEMATOCRIT 27.7 % (32.4-45.2); HEMOGLOBIN 9.3 GM/dL (10.7-15.3); MCHC 33.5 g/dl (32.0-36.0); MEAN CELL VOLUME 89.5 fl (80-96); MEAN PLT VOLUME 7.4 fl (7.5-11.1); PLATELET COUNT 484 10^3/uL (134-434); RBC 3.09 M/mm3 (3.60-5.2); RDW 16.3 % (11.6-15.6); WHITE BLOOD COUNT 12.7 K/mm3 (4.0-10.0)
[2021-02-24 08:01] LABS: CALCIUM 8.3 mg/dL (8.5-10.1)
[2021-02-24 08:02] LABS: BLOOD UREA NITROGEN 12.7 mg/dL (7-18)
[2021-02-24 08:05] LABS: CREATININE 0.4 mg/dL (0.55-1.3); PHOSPHOROUS 2.6 mg/dL (2.5-4.9)
[2021-02-24 08:06] LABS: BILIRUBIN,TOTAL 0.2 mg/dL (0.2-1); TOT PROT 7.2 g/dl (6.4-8.2)
[2021-02-24 08:23] LABS: ALBUMIN 1.2 g/dl (3.4-5.0)
[2021-02-24] MEDS: PANTOPRAZOLE SODIUM 40 MG VIAL IVPUSH SCH (09:18)
[2021-02-24] MEDS ORDERED: PT OWN MED DRAWER 7, Y5N ONE ×3 (09:53→21:27)
[2021-02-24] MEDS: LYTES/YERBA SANTA 60 ML SPRAY MM SCH ×2 (10:48→21:28)
[2021-02-24] MEDS: COLLAGENASE CLOSTRIDIUM HIST. 30 GRAMS TUBE TP SCH (10:48)
[2021-02-24] MEDS: FLUCONAZOLE 100 MG/NS 50 ML IVPB SCH (10:48)
[2021-02-24] MEDS: SERTRALINE HCL 50 MG TABLET (FP) GT SCH (10:49)
[2021-02-24] MEDS: POTASSIUM CHLORIDE 40 MEQ in AMINO ACIDS 4.25%/D5W 2,000 ML IV SCH (14:22)
[2021-02-24] MEDS: MULTIVIT INJ. ADULT COMBO WITH VIT K 1 COMBO 10 ML VIAL IV SCH (17:06)
[2021-02-24] MEDS: FAT EMULSION/OLIVE/SOY/PHOSPHO 250 ML IV SCH (21:28)
[2021-02-25] MEDS: CEFTAZIDIME/AVIBACTAM 2.5 GM in DEXTROSE 5%-WATER - 250 ML IVPB SCH ×3 (01:54→17:33)
[2021-02-25 08:37] LABS: BLOOD UREA NITROGEN 14.4 mg/dL (7-18); CALCIUM 8.6 mg/dL (8.5-10.1)
[2021-02-25 08:38] LABS: ALBUMIN 1.3 g/dl (3.4-5.0)
[2021-02-25 08:41] LABS: CREATININE 0.4 mg/dL (0.55-1.3)
[2021-02-25 08:42] LABS: BILIRUBIN,TOTAL 0.2 mg/dL (0.2-1); TOT PROT 7.4 g/dl (6.4-8.2)
[2021-02-25] MEDS ORDERED: PT OWN MED DRAWER 7, Y5N ONE ×3 (09:14→20:48)
[2021-02-25] MEDS: PANTOPRAZOLE SODIUM 40 MG VIAL IVPUSH SCH (10:00)
[2021-02-25] MEDS: SERTRALINE HCL 50 MG TABLET (FP) GT SCH (10:01)
[2021-02-25] MEDS: COLLAGENASE CLOSTRIDIUM HIST. 30 GRAMS TUBE TP SCH (10:01)
[2021-02-25] MEDS: LYTES/YERBA SANTA 60 ML SPRAY MM SCH ×2 (10:01→21:48)
[2021-02-25] MEDS: FLUCONAZOLE 100 MG/NS 50 ML IVPB SCH (11:35)
[2021-02-25] MEDS: FAT EMULSION/OLIVE/SOY/PHOSPHO 250 ML IV SCH (21:47)
[2021-02-25] MEDS: POTASSIUM CHLORIDE 40 MEQ in AMINO ACIDS 4.25%/D5W 2,000 ML IV SCH (21:51)
[2021-02-25] MEDS: MULTIVIT INJ. ADULT COMBO WITH VIT K 1 COMBO 10 ML VIAL IV SCH (21:52)
[2021-02-26] MEDS ORDERED: PT OWN MED DRAWER 7, Y5N ONE ×4 (01:46→22:48)
[2021-02-26] MEDS: CEFTAZIDIME/AVIBACTAM 2.5 GM in DEXTROSE 5%-WATER - 250 ML IVPB SCH ×3 (02:03→17:06)
[2021-02-26] MEDS: PANTOPRAZOLE SODIUM 40 MG VIAL IVPUSH SCH (10:05)
[2021-02-26] MEDS: FLUCONAZOLE 100 MG/NS 50 ML IVPB SCH (11:05)
[2021-02-26] MEDS: COLLAGENASE CLOSTRIDIUM HIST. 30 GRAMS TUBE TP SCH (12:05)
[2021-02-26] MEDS: SERTRALINE HCL 50 MG TABLET (FP) GT SCH (12:06)
[2021-02-26] MEDS: LYTES/YERBA SANTA 60 ML SPRAY MM SCH ×2 (12:06→23:00)
[2021-02-26] MEDS: FAT EMULSION/OLIVE/SOY/PHOSPHO 250 ML IV SCH (23:00)
[2021-02-27] MEDS: POTASSIUM CHLORIDE 40 MEQ in AMINO ACIDS 4.25%/D5W 2,000 ML IV SCH ×3 (01:11→10:05)
[2021-02-27] MEDS: MULTIVIT INJ. ADULT COMBO WITH VIT K 1 COMBO 10 ML VIAL IV SCH ×2 (01:12→01:28)
[2021-02-27] MEDS ORDERED: PT OWN MED DRAWER 7, Y5N ONE ×4 (02:01→17:10)
[2021-02-27] MEDS: CEFTAZIDIME/AVIBACTAM 2.5 GM in DEXTROSE 5%-WATER - 250 ML IVPB SCH ×3 (02:10→18:04)
[2021-02-27 07:36] LABS: ALBUMIN 1.4 g/dl (3.4-5.0); CALCIUM 8.4 mg/dL (8.5-10.1)
[2021-02-27 07:38] LABS: BLOOD UREA NITROGEN 13.7 mg/dL (7-18)
[2021-02-27 07:41] LABS: PHOSPHOROUS 2.8 mg/dL (2.5-4.9); TOT PROT 8.1 g/dl (6.4-8.2)
[2021-02-27 07:42] LABS: BILIRUBIN,TOTAL 0.2 mg/dL (0.2-1)
[2021-02-27 07:52] LABS: CREATININE 0.4 mg/dL (0.55-1.3)
[2021-02-27] MEDS: LYTES/YERBA SANTA 60 ML SPRAY MM SCH ×2 (09:45→21:21)
[2021-02-27] MEDS: PANTOPRAZOLE SODIUM 40 MG VIAL IVPUSH SCH (09:45)
[2021-02-27] MEDS: COLLAGENASE CLOSTRIDIUM HIST. 30 GRAMS TUBE TP SCH (09:45)
[2021-02-27] MEDS: SERTRALINE HCL 50 MG TABLET (FP) GT SCH (09:46)
[2021-02-27] MEDS: [UNRECOGNIZED DRUG - OTHER] IV SCH ×2 (16:34→18:14)
[2021-02-27] MEDS: MULTIVIT IV SCH ×2 (16:34→18:14)
[2021-02-27] MEDS: POTASSIUM CHLORIDE IV SCH ×2 (16:34→18:14)
[2021-02-27] MEDS ORDERED: AMINO ACIDS 4.25%/D5W 1,000 ML IV SCH (17:30)
[2021-02-27 21:23] VITALS: BP 141/77; PULSE 98; TEMP 98.3
== END 2021-02-27 21:45 | disposition hospice, inpatient (51) | DRG 871 ==
LOC: JER 23:50 → JERBED 01-27 00:34 → JICU 01-27 12:58 → J4S 02-06 04:57
PROVIDERS: ADMIT Internal Medicine; ATTEND Family Medicine
PROC: 3E0G76Z Introduction of Nutritional Substance into Upper GI, Via Natural or Artificial Opening (ICD-10-PCS; principal; 2021-01-27)
PROC: 06HM33Z Insertion of Infusion Device into Right Femoral Vein, Percutaneous Approach (ICD-10-PCS; 2021-01-27)
PROC: 06HN33Z Insertion of Infusion Device into Left Femoral Vein, Percutaneous Approach (ICD-10-PCS; 2021-01-29)
PROC: B54CZZA Ultrasonography of Left Lower Extremity Veins, Guidance (ICD-10-PCS; 2021-01-29)
PROC: 05HB33Z Insertion of Infusion Device into Right Basilic Vein, Percutaneous Approach (ICD-10-PCS; 2021-02-09)
PROC: B54MZZA Ultrasonography of Right Upper Extremity Veins, Guidance (ICD-10-PCS; 2021-02-09)
PROC: 0W9G30Z Drainage of Peritoneal Cavity with Drainage Device, Percutaneous Approach (ICD-10-PCS; 2021-02-16)
PROC: 02HV33Z Insertion of Infusion Device into Superior Vena Cava, Percutaneous Approach (ICD-10-PCS; 2021-02-25)
PROC: B548ZZA Ultrasonography of Superior Vena Cava, Guidance (ICD-10-PCS; 2021-02-25)
PROC: 0W9G30Z Drainage of Peritoneal Cavity with Drainage Device, Percutaneous Approach (ICD-10-PCS; 2021-02-26)
DX: A41.9 Sepsis, unspecified organism (principal); L89.154 Pressure ulcer of sacral region, stage 4; J96.21 Acute and chronic respiratory failure with hypoxia; R53.2 Functional quadriplegia; R65.21 Severe sepsis with septic shock; K65.1 Peritoneal abscess; N17.9 Acute kidney failure, unspecified; N39.0 Urinary tract infection, site not specified; R64 Cachexia; E87.0 Hyperosmolality and hypernatremia; E46 Unspecified protein-calorie malnutrition; E20.9 Hypoparathyroidism, unspecified; E86.0 Dehydration; Z93.1 Gastrostomy status; Z93.0 Tracheostomy status; Z86.73 Personal history of transient ischemic attack (TIA), and cerebral infarction without residual deficits; K66.8 Other specified disorders of peritoneum; G30.9 Alzheimer's disease, unspecified; F02.80 Dementia in other diseases classified elsewhere, unspecified severity, without behavioral disturbance, psychotic disturbance, mood disturbance, and anxiety; Z68.21 Body mass index [BMI] 21.0-21.9, adult; E87.6 Hypokalemia
CPT/HCPCS: 36415; 36569; 49406; 71045-TC-FY; 74018-TC-FY; 74176-TC; 74178-TC; 75820-TC-FY; 80048; 80053; 80061; 81003; 82803; 82962; 83605; 83735; 84100; 84484; 85025; 85027; 85610; 85730; 86140; 87040; 87070; 87075; 87076; 87077; 87086; 87102; 87116; 87184; 87186; 87205; 87206; 87210; 87804; 93005; 93010; 99285-25; C1729; C1769; C9803; J0131; Q9967; U0003; U0005

== ENCOUNTER 2021-12-03 12:30 | Inpatient (IN) | payer OTHER ==
[2021-12-03 12:42] VITALS: BMI 23.5
[2021-12-03] MEDS ORDERED: ACETAMINOPHEN 1000 MG/100 ML BAG IVPB ONE (13:09)
[2021-12-03] MEDS ORDERED: ACETAMINOPHEN INJECTION 100 ML IVPB ONE (13:26)
[2021-12-03 14:10] LABS: BASO % 0.9 % (0-2.0); EOS % 2.1 % (0-4.5); HEMATOCRIT 40.7 % (32.4-45.2); HEMOGLOBIN 12.8 GM/dL (10.7-15.3); LYMPH % 42.5 % (8-40); MCH 24.8 pg (25.7-33.7); MCHC 31.4 g/dl (32.0-36.0); MEAN CELL VOLUME 79.1 fl (80-96); MEAN PLT VOLUME 7.3 fl (7.5-11.1); MONO % 11.7 % (3.8-10.2); NEUT % 42.8 % (42.8-82.8); PLATELET COUNT 368 10^3/uL (134-434); RBC 5.14 M/mm3 (3.60-5.2); RDW 19.4 % (11.6-15.6)
[2021-12-03 14:18] LABS: INR 1.04 (0.83-1.09)
[2021-12-03 14:21] LABS: ACTIVATED PTT 28.9 SECONDS (25.2-36.5)
[2021-12-03 14:26] LABS: ALBUMIN 2.6 g/dl (3.4-5.0); BLOOD UREA NITROGEN 14.4 mg/dL (7-18); CALCIUM 9.2 mg/dL (8.5-10.1)
[2021-12-03 14:29] LABS: CREATININE 0.4 mg/dL (0.55-1.3)
[2021-12-03 14:31] LABS: BILIRUBIN,TOTAL 0.3 mg/dL (0.2-1); TOT PROT 7.9 g/dl (6.4-8.2)
[2021-12-03 14:38] LABS: EPI CELLS 11 /uL (0-25.1); HYALINE CASTS 2 /uL (0-3.1); PH,URINE 7.5 (5.0-8.0); URINE APPEARANCE TURBID; URINE BACTERIA >9,000 /uL (0-1359); URINE BILIRUBIN NEGATIVE (NEGATIVE); URINE COLOR YELLOW; URINE GLUCOSE (UA) NEGATIVE (NEGATIVE); URINE KETONE NEGATIVE (NEGATIVE); URINE LEUK ESTERASE 3+ (NEGATIVE); URINE NITRITE POSITIVE (NEGATIVE); URINE PROTEIN NEGATIVE (NEGATIVE); URINE UROBILINOGEN 0.2 mg/dL (0.2-1.0); URINE WBC 2525 /uL (0-25.8)
[2021-12-03 14:41] LABS: URINE RBC 245.8 /uL (0-23.9)
[2021-12-03] MEDS ORDERED: PIPERACILLIN/TAZOB 4.5 GM 4.5 GM in DEXTROSE 5%-WATER 100 ML IVPB ONE (14:43)
[2021-12-03 15:10] LABS: YEAST NONE SEEN (NEGATIVE)
[2021-12-03] MEDS ORDERED: PIPERACILLIN/TAZOB 4.5 GM 4.5 GM/100 ML BAG IVPB ONE (15:22)
[2021-12-03] MEDS ORDERED: VANCOMYCIN 1 GM in D5W (PRE-DOCKED) 1,000 MG/250 ML IVPB ONE (18:08)
[2021-12-03] MEDS ORDERED: VANCOMYCIN/WATER FOR INJ (PEG) 1,000 MG/200 ML BAG IVPB ONE (18:29)
[2021-12-03] MEDS ORDERED: PIPERACILLIN/TAZOB 3.375 GM 3.375 GM/50 ML BAG IVPB ONE (20:53)
[2021-12-03] MEDS ORDERED: PIPERACILLIN/TAZOB 3.375 GM 3.375 GM in DEXTROSE 5%-WATER - 50 ML IVPB SCH (21:00)
[2021-12-03] MEDS: DEXTROSE 5%-NORMAL SALINE 1,000 ML IV SCH (21:10)
[2021-12-03] MEDS: PIPERACILLIN/TAZOB 3.375 GM 3.375 GM in DEXTROSE 5%-WATER - 50 ML IVPB SCH (21:10)
[2021-12-04] MEDS: PIPERACILLIN/TAZOB 3.375 GM 3.375 GM in DEXTROSE 5%-WATER - 50 ML IVPB SCH ×2 (02:42→09:52)
[2021-12-04] MEDS: FENTANYL PATCH WASTE TD PRN (05:30)
[2021-12-04] MEDS: fentaNYL 25mcg/hr PATCH.TD72 TD SCH (05:34)
[2021-12-04] MEDS: ARTIFICIAL TEARS (POLYVINYL ALCOHOL) OPTH DROPS OU SCH ×3 (05:35→17:05)
[2021-12-04] MEDS ORDERED: VANCOMYCIN 1 GM/200 ML PREMIX BAG IVPB ONE (06:00)
[2021-12-04] MEDS ORDERED: VANCOMYCIN 1 GM in D5W (PRE-DOCKED) 1,000 MG/250 ML IVPB SCH (06:00)
[2021-12-04 08:30] LABS: BASO % 0.8 % (0-2.0); LYMPH % 33.3 % (8-40); MCH 24.8 pg (25.7-33.7); MCHC 31.4 g/dl (32.0-36.0); MEAN CELL VOLUME 78.9 fl (80-96); MONO % 14.5 % (3.8-10.2); NEUT % 47.4 % (42.8-82.8); PLATELET COUNT 330 10^3/uL (134-434); RBC 4.44 M/mm3 (3.60-5.2); RDW 19.5 % (11.6-15.6); WHITE BLOOD COUNT 5.4 K/mm3 (4.0-10.0)
[2021-12-04 08:45] LABS: CALCIUM 8.7 mg/dL (8.5-10.1)
[2021-12-04 08:48] LABS: CREATININE 0.4 mg/dL (0.55-1.3)
[2021-12-04 08:49] LABS: PHOSPHOROUS 3.2 mg/dL (2.5-4.9)
[2021-12-04] MEDS: FAMOTIDINE 20 MG/50 ML IVPB 20 MG/50 ML MG IVPB SCH (09:52)
[2021-12-04] MEDS: SCOPOLAMINE HYDROBROMIDE 1 PATCH PATCH.TD72 TD SCH (09:54)
[2021-12-04] MEDS: ASCORBIC ACID 500 MG/5 ML UNIT DOSE CUP GT SCH (09:55)
[2021-12-04] MEDS: MULTIVIT-MINERALS ORAL LIQUID GT SCH (09:55)
[2021-12-04] MEDS: ZINC SULFATE 220 MG CAPSULE (FP) GT SCH (09:55)
[2021-12-04] MEDS ORDERED: ACETAMINOPHEN 1000 MG/100 ML BAG IVPB PRN (10:38)
[2021-12-04] MEDS: SENNOSIDES 8.8 MG/5 ML BULK BOTTLE GT SCH ×3 (21:36→22:38)
[2021-12-04] MEDS: DEXTROSE 5%-NORMAL SALINE 1,000 ML IV SCH (21:49)
[2021-12-05] MEDS: ARTIFICIAL TEARS (POLYVINYL ALCOHOL) OPTH DROPS OU SCH ×5 (00:16→23:32)
[2021-12-05] MEDS ORDERED: MAGNESIUM CITRATE 300 ML BOTTLE PO ONE ×2 (08:42→22:40)
[2021-12-05] MEDS ORDERED: SODIUM PHOSPHATE/NA BIPHOS 133 ML ENEMA RC ONE (08:43)
[2021-12-05] MEDS: FAMOTIDINE 20 MG/50 ML IVPB 20 MG/50 ML MG IVPB SCH (09:22)
[2021-12-05] MEDS: ASCORBIC ACID 500 MG/5 ML UNIT DOSE CUP GT SCH (09:23)
[2021-12-05] MEDS: ZINC SULFATE 220 MG CAPSULE (FP) GT SCH (09:23)
[2021-12-05] MEDS: MULTIVIT-MINERALS ORAL LIQUID GT SCH (09:23)
[2021-12-05] MEDS: SODIUM PHOSPHATE/NA BIPHOS 133 ML ENEMA RC SCH ×3 (13:32→22:34)
[2021-12-05] MEDS: CEPHALEXIN MONOHYDRATE 500 MG CAPSULE (UD) PEG SCH ×2 (19:34→23:32)
[2021-12-05] MEDS ORDERED: MAGNESIUM CITRATE 300 ML BOTTLE GT ONE (22:00)
[2021-12-05] MEDS: SENNOSIDES 8.8 MG/5 ML BULK BOTTLE GT SCH (22:35)
[2021-12-05] MEDS: DEXTROSE 5%-NORMAL SALINE 1,000 ML IV SCH (23:13)
[2021-12-06] MEDS: ARTIFICIAL TEARS (POLYVINYL ALCOHOL) OPTH DROPS OU SCH ×4 (06:47→23:06)
[2021-12-06] MEDS: CEPHALEXIN MONOHYDRATE 500 MG CAPSULE (UD) PEG SCH ×4 (06:47→23:06)
[2021-12-06] MEDS: ZINC SULFATE 220 MG CAPSULE (FP) GT SCH (09:39)
[2021-12-06] MEDS: ASCORBIC ACID 500 MG/5 ML UNIT DOSE CUP GT SCH (09:39)
[2021-12-06] MEDS: FAMOTIDINE 20 MG/50 ML IVPB 20 MG/50 ML MG IVPB SCH (09:39)
[2021-12-06] MEDS: MULTIVIT-MINERALS ORAL LIQUID GT SCH (09:39)
[2021-12-06] MEDS: DEXTROSE 5%-NORMAL SALINE 1,000 ML IV SCH ×2 (10:03→23:05)
[2021-12-06] MEDS: SENNOSIDES 8.8 MG/5 ML BULK BOTTLE GT SCH (22:01)
[2021-12-07] MEDS: fentaNYL 25mcg/hr PATCH.TD72 TD SCH (02:35)
[2021-12-07] MEDS: FENTANYL PATCH WASTE TD PRN (02:40)
[2021-12-07 07:18] VITALS: RESP 19
[2021-12-07] MEDS: CEPHALEXIN MONOHYDRATE 500 MG CAPSULE (UD) PEG SCH ×3 (07:43→18:06)
[2021-12-07] MEDS: ARTIFICIAL TEARS (POLYVINYL ALCOHOL) OPTH DROPS OU SCH ×3 (07:43→18:06)
[2021-12-07] MEDS ORDERED: COLLAGENASE CLOSTRIDIUM HIST. 30 GRAMS TUBE TP SCH (10:00)
[2021-12-07] MEDS ORDERED: POLYETHYLENE GLYCOL (HEALTHYLAX) 3350 17 GM PACKET GT SCH (10:00)
[2021-12-07] MEDS: FAMOTIDINE 20 MG/50 ML IVPB 20 MG/50 ML MG IVPB SCH (10:30)
[2021-12-07] MEDS: ZINC SULFATE 220 MG CAPSULE (FP) GT SCH (10:30)
[2021-12-07] MEDS: SCOPOLAMINE HYDROBROMIDE 1 PATCH PATCH.TD72 TD SCH (10:30)
[2021-12-07] MEDS: ASCORBIC ACID 500 MG/5 ML UNIT DOSE CUP GT SCH (10:31)
[2021-12-07] MEDS: MULTIVIT-MINERALS ORAL LIQUID GT SCH (10:32)
[2021-12-07 13:29] LABS: ALBUMIN 2.4 g/dl (3.4-5.0); BLOOD UREA NITROGEN 4.8 mg/dL (7-18); CALCIUM 8.7 mg/dL (8.5-10.1)
[2021-12-07 13:32] LABS: CREATININE 0.4 mg/dL (0.55-1.3)
[2021-12-07 13:34] LABS: BILIRUBIN,TOTAL 0.4 mg/dL (0.2-1); TOT PROT 6.7 g/dl (6.4-8.2)
[2021-12-07 18:25] VITALS: PULSE 72; TEMP 98.8
[2021-12-07 18:42] VITALS: BP 157/100
== END 2021-12-07 18:00 | DRG 689 ==
LOC: JER 12:30 → JERBED 18:10 → J4S 12-04 01:25
PROVIDERS: ADMIT Internal Medicine; ATTEND Family Medicine
DX: N39.0 Urinary tract infection, site not specified (principal); L89.154 Pressure ulcer of sacral region, stage 4; R53.2 Functional quadriplegia; J96.10 Chronic respiratory failure, unspecified whether with hypoxia or hypercapnia; M46.28 Osteomyelitis of vertebra, sacral and sacrococcygeal region; T85.528A Displacement of other gastrointestinal prosthetic devices, implants and grafts, initial encounter; B96.20 Unspecified Escherichia coli [E. coli] as the cause of diseases classified elsewhere; G30.9 Alzheimer's disease, unspecified; F02.80 Dementia in other diseases classified elsewhere, unspecified severity, without behavioral disturbance, psychotic disturbance, mood disturbance, and anxiety; K57.90 Diverticulosis of intestine, part unspecified, without perforation or abscess without bleeding; E78.5 Hyperlipidemia, unspecified; R10.11 Right upper quadrant pain; I10 Essential (primary) hypertension; M54.50 Low back pain, unspecified; E20.9 Hypoparathyroidism, unspecified; K83.8 Other specified diseases of biliary tract; K59.00 Constipation, unspecified; Z93.0 Tracheostomy status; Y83.8 Other surgical procedures as the cause of abnormal reaction of the patient, or of later complication, without mention of misadventure at the time of the procedure; Z88.0 Allergy status to penicillin
CPT/HCPCS: 0241U-QW; 36415; 49465; 71045-TC-FY; 74177-TC; 80048; 80053; 81003; 83605; 83690; 83735; 84100; 85025; 85610; 85730; 86850; 86900; 86901; 87040; 87086; 87186; 93005; 93010; 99285-25; Q9967

== ENCOUNTER 2023-06-20 14:53 | Inpatient (IN) | payer OTHER ==
[2023-06-20] MEDS ORDERED: VANCOMYCIN 1 GRAM (PRE-DOCKED) 1,000 MG/250 ML BAG IVPB ONE (16:52)
[2023-06-20] MEDS ORDERED: CEFEPIME 1 GM/100 ML BAG IVPB ONE ×2 (16:52)
[2023-06-20] MEDS: CEFEPIME HCL/D5W 1 GM/50 ML BAG IVPB ONE (17:09)
[2023-06-20] MEDS: SODIUM CHLORIDE 0.9% 500 ML INFUS.BAG IV ONE (17:09)
[2023-06-20] MEDS: VANCOMYCIN/WATER 1250 MG 1,250 MG/250 ML BAG IVPB ONE (17:09)
[2023-06-20 17:12] LABS: POTASSIUM 4.1 mmol/L (3.5-5.1)
[2023-06-20 17:14] LABS: CALCIUM 7.4 mg/dL (8.5-10.1)
[2023-06-20 17:15] LABS: ALBUMIN 1.6 g/dl (3.4-5.0); BLOOD UREA NITROGEN 21.5 mg/dL (7-18)
[2023-06-20 17:16] LABS: VENOUS BASE EXCESS 5.3 mmol/L (-2-2); VENOUS PCO2 61.8 mmHg (38-52); VENOUS PH 7.342 (7.310-7.410)
[2023-06-20 17:17] LABS: BASO % 0.3 % (0-2.0); EOS % 1.2 % (0-4.5); HEMATOCRIT 33.8 % (32.4-45.2); HEMOGLOBIN 11.1 GM/dL (10.7-15.3); LYMPH % 11.3 % (8-40); MCH 27.6 pg (25.7-33.7); MCHC 32.9 g/dl (32.0-36.0); MEAN CELL VOLUME 84.1 fl (80-96); MEAN PLT VOLUME 8.9 fl (7.5-11.1); MONO % 9.7 % (3.8-10.2); NEUT % 77.5 % (42.8-82.8); PLATELET COUNT 81 10^3/uL (134-434); RBC 4.02 M/mm3 (3.60-5.2); RDW 19.7 % (11.6-15.6)
[2023-06-20 17:18] LABS: CREATININE 0.5 mg/dL (0.55-1.3)
[2023-06-20 17:19] LABS: BILIRUBIN,TOTAL 0.4 mg/dL (0.2-1); PH,URINE 7.5 (5.0-8.0); URINE APPEARANCE CLEAR; URINE BILIRUBIN NEGATIVE (NEGATIVE); URINE COLOR YELLOW; URINE GLUCOSE (UA) NEGATIVE (NEGATIVE); URINE KETONE NEGATIVE (NEGATIVE); URINE LEUK ESTERASE NEGATIVE (NEGATIVE); URINE NITRITE NEGATIVE (NEGATIVE); URINE PROTEIN TRACE (NEGATIVE)
[2023-06-20 17:23] LABS: INR 1.21 (0.83-1.09)
[2023-06-20 17:26] LABS: ACTIVATED PTT 37.8 SECONDS (25.2-36.5)
[2023-06-20] MEDS ORDERED: AZITHROMYCIN IVPB 500 MG/250 ML BAG IVPB ONE (18:19)
[2023-06-20] MEDS: AZITHROMYCIN IVPB 500 MG in DEXTROSE 5%-WATER - 250 ML IVPB ONE (18:27)
[2023-06-20] MEDS: CEFEPIME 2 GM in DEXTROSE 5%-WATER 100 ML IVPB SCH (22:27)
[2023-06-20] MEDS: VANCOMYCIN 750 MG in DEXTROSE 5%-WATER - 150 ML IVPB SCH (22:27)
[2023-06-20] MEDS: CEFEPIME HCL 2 GM VIAL (RESTRICTED TO ID) IVPB SCH (22:27)
[2023-06-20] MEDS ORDERED: ALBUTEROL SO4 2.5/IPRATROPIUM 0.5 INH SOL 3 ML VIAL.NEB. NEB ONE (23:25)
[2023-06-20] MEDS ORDERED: ACETAMINOPHEN 1000 MG/100 ML BAG IVPB PRN (23:36)
[2023-06-20] MEDS: ALBUTEROL SO4 2.5/IPRATROPIUM 0.5 INH SOL 3 ML VIAL.NEB. NEB ONE (23:45)
[2023-06-20] MEDS: DEXTROSE 5%-NORMAL SALINE 1,000 ML IV SCH (23:52)
[2023-06-21] MEDS: ARTIFICIAL TEARS OPHTHALMIC DROPS OU SCH ×3 (01:17→19:06)
[2023-06-21] MEDS: GABAPENTIN 250 MG/5 ML ORAL SOLUTION, 470 ML BOTTLE GT SCH (02:18)
[2023-06-21] MEDS ORDERED: CEFEPIME 2 GM/100 ML BAG IVPB ONE ×2 (02:23→09:08)
[2023-06-21] MEDS: CEFEPIME 2 GM in DEXTROSE 5%-WATER 100 ML IVPB SCH ×2 (02:27→17:26)
[2023-06-21] MEDS: SODIUM CHLORIDE 500 ML IV STA ×2 (04:39→18:08)
[2023-06-21] MEDS: DEXTROSE 5%-NORMAL SALINE 1,000 ML IV SCH ×3 (05:35→21:47)
[2023-06-21] MEDS ORDERED: VANCOMYCIN/WATER FOR INJ (PEG) 750 MG/150 ML BAG IVPB SCH (06:00)
[2023-06-21] MEDS ORDERED: BACLOFEN 10 MG TABLET (FP) ONE (06:08)
[2023-06-21] MEDS: VANCOMYCIN/WATER FOR INJ (PEG) 750 MG/150 ML BAG IVPB SCH ×2 (06:20→18:08)
[2023-06-21] MEDS: BACLOFEN 10 MG TABLET (FP) PEG SCH ×2 (06:28→21:19)
[2023-06-21 07:27] LABS: BASO % 0.6 % (0-2.0); EOS % 1.4 % (0-4.5); HEMATOCRIT 30.5 % (32.4-45.2); LYMPH % 12.6 % (8-40); MCH 28.2 pg (25.7-33.7); MCHC 32.8 g/dl (32.0-36.0); MEAN CELL VOLUME 86.1 fl (80-96); MEAN PLT VOLUME 8.9 fl (7.5-11.1); MONO % 11.9 % (3.8-10.2); NEUT % 73.5 % (42.8-82.8); PLATELET COUNT 78 10^3/uL (134-434); RBC 3.54 M/mm3 (3.60-5.2); RDW 19.5 % (11.6-15.6); WHITE BLOOD COUNT 9.5 K/mm3 (4.0-10.0)
[2023-06-21 07:44] LABS: POTASSIUM 4.5 mmol/L (3.5-5.1)
[2023-06-21 07:49] LABS: ALBUMIN 1.5 g/dl (3.4-5.0); BLOOD UREA NITROGEN 21.6 mg/dL (7-18); CALCIUM 7.2 mg/dL (8.5-10.1); MAGNESIUM 2.4 mg/dL (1.8-2.4)
[2023-06-21 07:52] LABS: CREATININE 0.5 mg/dL (0.55-1.3); PHOSPHOROUS 5.1 mg/dL (2.5-4.9)
[2023-06-21 07:54] LABS: BILIRUBIN,TOTAL 0.4 mg/dL (0.2-1); TOT PROT 6.3 g/dl (6.4-8.2)
[2023-06-21] MEDS ORDERED: POLYETHYLENE GLYCOL (HEALTHYLAX) 3350 17 GM PACKET ONE (09:05)
[2023-06-21] MEDS ORDERED: FAMOTIDINE 20 MG TABLET ONE (09:06)
[2023-06-21] MEDS ORDERED: ASCORBIC ACID 500 MG TABLET (FP) ONE (09:06)
[2023-06-21] MEDS ORDERED: GABAPENTIN 300 MG CAPSULE ONE (09:06)
[2023-06-21] MEDS ORDERED: ZINC SULFATE 220 MG CAPSULE (FP) ONE (09:06)
[2023-06-21] MEDS ORDERED: ALBUTEROL SO4 2.5/IPRATROPIUM 0.5 INH SOL 3 ML VIAL.NEB. NEB ONE (09:06)
[2023-06-21] MEDS ORDERED: HEPARIN NA (PORCINE) 5,000 UNITS/ML 1ML VIAL ONE (09:07)
[2023-06-21] MEDS: POLYETHYLENE GLYCOL (HEALTHYLAX) 3350 17 GM PACKET GT SCH (09:31)
[2023-06-21] MEDS: ALBUTEROL SO4 2.5/IPRATROPIUM 0.5 INH SOL 3 ML VIAL.NEB. NEB SCH ×2 (09:31→20:09)
[2023-06-21] MEDS: FAMOTIDINE 20 MG/2.5 ML ORAL LIQUID PEG SCH (09:32)
[2023-06-21] MEDS: ASCORBIC ACID 500 MG/5 ML UNIT DOSE CUP GT SCH (09:32)
[2023-06-21] MEDS: HEPARIN NA (PORCINE) 5,000 UNITS/ML 1ML VIAL SQ SCH (09:32)
[2023-06-21] MEDS: ZINC SULFATE 220 MG CAPSULE (FP) GT SCH (09:32)
[2023-06-21] MEDS ORDERED: PATIENT'S OWN MEDICATION (NON-FORMULARY) (Amlodipine Besylate 10 MG) PEG SCH (10:00)
[2023-06-21] MEDS: SODIUM CHLORIDE 1,000 ML IV STA (11:46)
[2023-06-21] MEDS: NOREPINEPHRINE BITARTRATE 4,000 MCG in DEXTROSE 5%-WATER - 496 ML IV SCH (13:23)
[2023-06-21] MEDS ORDERED: FLUCONAZOLE 100 MG TABLET (UD) PO SCH (16:15)
[2023-06-21] MEDS ORDERED: ONDANSETRON 4 MG TABLET PO PRN (16:36)
[2023-06-21 17:28] LABS: ARTERIAL BLD GAS O2 SATURATION 99.1 % (95-98); ARTERIAL BLOOD GAS BASE EXCESS -2.8 mmol/L (-2-2); ARTERIAL BLOOD GAS PO2 205.7 mmHg (80-100); ARTERIAL BLOOD GAS pH 7.206 (7.350-7.450)
[2023-06-21 17:30] LABS: ALLENS TEST POSITIVE
[2023-06-21 17:31] LABS: VENT MODE A/C; VENT RATE 12
[2023-06-21] MEDS: SCOPOLAMINE HYDROBROMIDE 1 PATCH PATCH.TD72 TP SCH (18:55)
[2023-06-21] MEDS: FLUCONAZOLE 200 MG/NS 100 ML IVPB ONE (20:35)
[2023-06-21] MEDS: NOREPINEPHRINE 0.9 % NACL 8 MG/250 ML BAG IVPB SCH (20:36)
[2023-06-21 21:02] LABS: ARTERIAL BLOOD GAS BASE EXCESS -1.3 mmol/L (-2-2); ARTERIAL BLOOD GAS PO2 168.7 mmHg (80-100); ARTERIAL BLOOD GAS pH 7.302 (7.350-7.450)
[2023-06-21 21:18] LABS: ALLENS TEST POSITIVE
[2023-06-21 21:19] LABS: VENT MODE AC; VENT RATE 12
[2023-06-21] MEDS: CHLORHEXIDINE GLUCONATE 4% CLEANSER FOR DECOLONIZATION TP SCH (21:19)
[2023-06-21] MEDS ORDERED: SODIUM CHLORIDE 1,000 ML IV SCH (21:45)
[2023-06-21] MEDS: MUPIROCIN 2% TOPICAL OINTMENT FOR DECOLONIZATION NS SCH (21:46)
[2023-06-21] MEDS ORDERED: PATIENT'S OWN MEDICATION (NON-FORMULARY) (Menthol/Zinc Oxide [Calmoseptine Ointment] 71 GM TP SCH (22:00)
[2023-06-21] MEDS ORDERED: SENNOSIDES 8.8 MG/5 ML SYRUP PO SCH (22:00)
[2023-06-21] MEDS ORDERED: ACETAMINOPHEN 650 MG/20.3 ML ORAL SOLUTION (CUPS) GT PRN (23:00)
[2023-06-21] MEDS ORDERED: COLLAGENASE CLOSTRIDIUM HIST. 30 GRAMS TUBE TP SCH ×2 (23:42)
[2023-06-22] MEDS: CEFEPIME 2 GM in DEXTROSE 5%-WATER 100 ML IVPB SCH (01:01)
[2023-06-22] MEDS: VANCOMYCIN/WATER FOR INJ (PEG) 750 MG/150 ML BAG IVPB SCH (05:50)
[2023-06-22 06:41] LABS: HEMOGLOBIN 9.6 GM/dL (10.7-15.3); MCH 28.2 pg (25.7-33.7); MCHC 33.2 g/dl (32.0-36.0); MEAN CELL VOLUME 84.8 fl (80-96); MEAN PLT VOLUME 8.2 fl (7.5-11.1); PLATELET COUNT 74 10^3/uL (134-434); RBC 3.42 M/mm3 (3.60-5.2); RDW 19.5 % (11.6-15.6); WHITE BLOOD COUNT 15.1 K/mm3 (4.0-10.0)
[2023-06-22 06:44] LABS: ARTERIAL BLOOD GAS PO2 103.1 mmHg (80-100)
[2023-06-22 06:46] LABS: ALLENS TEST POSITIVE
[2023-06-22 06:49] LABS: VENT MODE A/C; VENT RATE 16
[2023-06-22 07:23] LABS: POTASSIUM 3.9 mmol/L (3.5-5.1)
[2023-06-22 07:28] LABS: ALBUMIN 1.2 g/dl (3.4-5.0); CALCIUM 7.3 mg/dL (8.5-10.1); MAGNESIUM 2.1 mg/dL (1.8-2.4)
[2023-06-22 07:29] LABS: BLOOD UREA NITROGEN 22.7 mg/dL (7-18)
[2023-06-22 07:32] LABS: CREATININE 0.9 mg/dL (0.55-1.3); PHOSPHOROUS 2.3 mg/dL (2.5-4.9)
[2023-06-22 07:33] LABS: BILIRUBIN,TOTAL 0.7 mg/dL (0.2-1); TOT PROT 5.9 g/dl (6.4-8.2)
[2023-06-22] MEDS ORDERED: FENTANYL IVPB 500 MCG/100 ML BAG IVPB SCH (09:00)
[2023-06-22] MEDS: FAMOTIDINE 20 MG/50 ML IVPB 20 MG/50 ML MG IVPB SCH (09:51)
[2023-06-22] MEDS: ASCORBIC ACID 500 MG/5 ML UNIT DOSE CUP GT SCH (09:52)
[2023-06-22] MEDS: GABAPENTIN 250 MG/5 ML ORAL SOLUTION, 470 ML BOTTLE PEG SCH (09:52)
[2023-06-22] MEDS: FLUCONAZOLE 100 MG TABLET (UD) PO SCH (09:52)
[2023-06-22] MEDS: NAPH,MB-DB/K PH,MBDB POWDER PACKET PO ONE (09:55)
[2023-06-22] MEDS: POLYETHYLENE GLYCOL (HEALTHYLAX) 3350 17 GM PACKET GT SCH (09:55)
[2023-06-22] MEDS ORDERED: [UNRECOGNIZED DRUG - OTHER] TP SCH (10:00)
[2023-06-22] MEDS: FENTANYL NS IVPB 500 MCG/100 ML BAG IVPB SCH (16:57)
[2023-06-22] MEDS: VANCOMYCIN/WATER FOR INJ (PEG) 1,000 MG/200 ML BAG IVPB SCH (18:46)
[2023-06-22] MEDS: SENNOSIDES 8.8 MG/5 ML SYRUP PEG SCH (21:03)
[2023-06-22] MEDS: ZINC OXIDE 20% TOPICAL OINTMENT 30 GM TUBE TP SCH (21:03)
[2023-06-23 07:05] LABS: BASO % 0.4 % (0-2.0); EOS % 1.3 % (0-4.5); HEMATOCRIT 27.1 % (32.4-45.2); HEMOGLOBIN 8.9 GM/dL (10.7-15.3); LYMPH % 7.6 % (8-40); MCH 27.8 pg (25.7-33.7); MCHC 32.9 g/dl (32.0-36.0); MEAN CELL VOLUME 84.5 fl (80-96); MEAN PLT VOLUME 8.5 fl (7.5-11.1); MONO % 6.7 % (3.8-10.2); PLATELET COUNT 89 10^3/uL (134-434); RDW 19.8 % (11.6-15.6); WHITE BLOOD COUNT 15.5 K/mm3 (4.0-10.0)
[2023-06-23 07:33] LABS: POTASSIUM 3.2 mmol/L (3.5-5.1)
[2023-06-23 07:43] LABS: CREATININE 0.6 mg/dL (0.55-1.3)
[2023-06-23 07:45] LABS: BILIRUBIN,TOTAL 0.6 mg/dL (0.2-1); TOT PROT 5.3 g/dl (6.4-8.2)
[2023-06-23 07:47] LABS: CALCIUM 7.3 mg/dL (8.5-10.1)
[2023-06-23 07:48] LABS: BLOOD UREA NITROGEN 18.5 mg/dL (7-18); MAGNESIUM 2.2 mg/dL (1.8-2.4)
[2023-06-23] MEDS ORDERED: ACETAMINOPHEN 1000 MG/100 ML BAG IVPB PRN (08:24)
[2023-06-23] MEDS: KCL 10 MEQ IVPB 10 MEQ/100 ML INFUS.BAG IVPB SCH (09:33)
[2023-06-23] MEDS ORDERED: IOHEXOL (OMNIPAQUE PO) 12 MG/ML - 500 ML BOTTLE PO ONE (11:22)
[2023-06-23] MEDS: PANTOPRAZOLE SODIUM 40 MG VIAL IVPUSH SCH (13:07)
[2023-06-23] MEDS: AMINO ACIDS/PROTEIN HYDROLYS 30 ML LIQUID.PKT PO SCH (17:46)
[2023-06-24] MEDS: MEROPENEM 1 GM in DEXTROSE 5%-WATER 100 ML IVPB SCH (12:27)
[2023-06-25 01:29] LABS: POTASSIUM 5.8 mmol/L (3.5-5.1)
[2023-06-25 01:31] LABS: CALCIUM 7.2 mg/dL (8.5-10.1)
[2023-06-25 01:32] LABS: ALBUMIN 0.9 g/dl (3.4-5.0); BLOOD UREA NITROGEN 39.2 mg/dL (7-18); MAGNESIUM 2.3 mg/dL (1.8-2.4)
[2023-06-25 01:35] LABS: PHOSPHOROUS 4.8 mg/dL (2.5-4.9)
[2023-06-25 01:36] LABS: BILIRUBIN,TOTAL 0.6 mg/dL (0.2-1); TOT PROT 5.7 g/dl (6.4-8.2)
[2023-06-25 06:48] LABS: ARTERIAL BLD GAS O2 SATURATION 98.1 % (95-98); ARTERIAL BLOOD GAS BASE EXCESS -6.1 mmol/L (-2-2); ARTERIAL BLOOD GAS PO2 123.9 mmHg (80-100); ARTERIAL BLOOD GAS pH 7.293 (7.350-7.450)
[2023-06-25 07:08] LABS: ALLENS TEST POSITIVE; VENT MODE A/C; VENT RATE 16
[2023-06-25 08:32] LABS: BASO % 0.4 % (0-2.0); EOS % 1.2 % (0-4.5); HEMATOCRIT 25.2 % (32.4-45.2); HEMOGLOBIN 8.1 GM/dL (10.7-15.3); LYMPH % 7.5 % (8-40); MCH 27.6 pg (25.7-33.7); MEAN CELL VOLUME 86.5 fl (80-96); MEAN PLT VOLUME 9.3 fl (7.5-11.1); MONO % 4.5 % (3.8-10.2); NEUT % 86.4 % (42.8-82.8); PLATELET COUNT 69 10^3/uL (134-434); RBC 2.91 M/mm3 (3.60-5.2); RDW 19.8 % (11.6-15.6)
[2023-06-25] MEDS: NOREPINEPHRINE 0.9 % NACL 8 MG/250 ML BAG IVPB SCH (14:15)
[2023-06-26] MEDS: LEVOTHYROXINE NA 25 MCG TABLET (FP) PO SCH (06:09)
[2023-06-26 07:36] LABS: HEMATOCRIT 26.4 % (32.4-45.2); HEMOGLOBIN 8.7 GM/dL (10.7-15.3); MCH 28.2 pg (25.7-33.7); MCHC 32.7 g/dl (32.0-36.0); MEAN CELL VOLUME 86.2 fl (80-96); PLATELET COUNT 79 10^3/uL (134-434); RBC 3.07 M/mm3 (3.60-5.2); RDW 19.6 % (11.6-15.6); WHITE BLOOD COUNT 22.1 K/mm3 (4.0-10.0)
[2023-06-26 07:48] LABS: ALBUMIN 1.1 g/dl (3.4-5.0); BLOOD UREA NITROGEN 54.4 mg/dL (7-18); CALCIUM 7.4 mg/dL (8.5-10.1); MAGNESIUM 2.4 mg/dL (1.8-2.4)
[2023-06-26 07:50] LABS: POTASSIUM 3.5 mmol/L (3.5-5.1)
[2023-06-26 07:51] LABS: CREATININE 1.4 mg/dL (0.55-1.3)
[2023-06-26 07:53] LABS: BILIRUBIN,TOTAL 0.3 mg/dL (0.2-1); TOT PROT 5.8 g/dl (6.4-8.2)
[2023-06-26] MEDS: LIOTHYRONINE SODIUM 5 MCG TABLET PO SCH (09:21)
[2023-06-26] MEDS ORDERED: VASopressin 40 UNITS/100 ML BAG IV SCH ×2 (09:30→10:15)
[2023-06-26] MEDS ORDERED: VASopressin 20 UNITS/ML VIAL IV ONE (10:06)
[2023-06-26] MEDS: VASopressin 40 UNITS/100 ML BAG IV SCH (12:05)
[2023-06-26 12:08] LABS: ANISOCYTOSIS 1+; MACROCYTOSIS 0; TARGET CELLS 3+
[2023-06-26 14:44] VITALS: BMI 26.1
[2023-06-27] MEDS: FENTANYL NS IVPB 500 MCG/100 ML BAG IVPB SCH (10:02)
[2023-06-28 07:27] LABS: BASO % 1.8 % (0-2.0); EOS % 1.1 % (0-4.5); HEMATOCRIT 24.8 % (32.4-45.2); HEMOGLOBIN 7.8 GM/dL (10.7-15.3); LYMPH % 9.7 % (8-40); MCH 27.9 pg (25.7-33.7); MCHC 31.4 g/dl (32.0-36.0); MEAN PLT VOLUME 10.6 fl (7.5-11.1); MONO % 4.7 % (3.8-10.2); NEUT % 82.7 % (42.8-82.8); PLATELET COUNT 88 10^3/uL (134-434); RBC 2.79 M/mm3 (3.60-5.2); RDW 20.2 % (11.6-15.6)
[2023-06-28 07:42] LABS: POTASSIUM 4.4 mmol/L (3.5-5.1)
[2023-06-28 07:46] LABS: ALBUMIN 0.9 g/dl (3.4-5.0)
[2023-06-28 07:49] LABS: CALCIUM 7.6 mg/dL (8.5-10.1); CREATININE 2.5 mg/dL (0.55-1.3)
[2023-06-28 07:52] LABS: BILIRUBIN,TOTAL 0.3 mg/dL (0.2-1)
[2023-06-28 07:54] LABS: TOT PROT 5.3 g/dl (6.4-8.2)
[2023-06-28] MEDS: MEROPENEM 1 GM in DEXTROSE 5%-WATER 100 ML IVPB SCH (21:12)
[2023-06-29] MEDS ORDERED: VASopressin 20 UNITS/ML VIAL IV ONE (15:21)
[2023-06-29 22:21] VITALS: BP 41/28; PULSE 30; RESP 16; TEMP 97.1
== END 2023-06-29 23:50 | disposition expired | DRG 870 ==
LOC: JER 14:53 → JERBED 18:39 → JICU 06-21 14:49
PROVIDERS: ADMIT Internal Medicine; ATTEND Internal Medicine Pulmonary Disease
PROC: 5A1955Z Respiratory Ventilation, Greater than 96 Consecutive Hours (ICD-10-PCS; principal; 2023-06-20)
PROC: 05HN33Z Insertion of Infusion Device into Left Internal Jugular Vein, Percutaneous Approach (ICD-10-PCS; 2023-06-21)
DX: A41.89 Other specified sepsis (principal); R65.21 Severe sepsis with septic shock; J18.9 Pneumonia, unspecified organism; R53.2 Functional quadriplegia; J96.21 Acute and chronic respiratory failure with hypoxia; J98.11 Atelectasis; E87.1 Hypo-osmolality and hyponatremia; K59.00 Constipation, unspecified; M54.50 Low back pain, unspecified; G30.9 Alzheimer's disease, unspecified; I10 Essential (primary) hypertension; R21 Rash and other nonspecific skin eruption; F02.80 Dementia in other diseases classified elsewhere, unspecified severity, without behavioral disturbance, psychotic disturbance, mood disturbance, and anxiety; I73.9 Peripheral vascular disease, unspecified; E20.9 Hypoparathyroidism, unspecified; D69.6 Thrombocytopenia, unspecified; R68.0 Hypothermia, not associated with low environmental temperature; D64.9 Anemia, unspecified; I46.9 Cardiac arrest, cause unspecified; Z93.0 Tracheostomy status; Z88.0 Allergy status to penicillin; Z66 Do not resuscitate
CPT/HCPCS: 0241U-QW; 36415; 36600; 71045-TC-FY; 73630-TC-RT-FY; 74018-TC-FY; 80048; 80053; 81003; 82272; 82550; 82607; 82728; 82803; 82962; 83540; 83550; 83605; 83735; 84100; 84207; 84439; 84443; 84466; 84481; 84484; 85025; 85027; 85045; 85379; 85384; 85610; 85730; 86022; 86850; 86900; 86901; 87040; 87070; 87086; 87186; 87205; 87899; 93005; 93010; 93306-TC; 94002; 94640; 99291; E0186; G0480; J0475; J1644; J3490